=== PATIENT | female | born 1975 | race Caucasian/White ===

== ENCOUNTER 2017-08-01 05:16 | Emergency (ER) | payer SELFPAY ==
[2017-08-01 05:25] VITALS: RESP 20; TEMP 98.3
--- NOTE | 2017-08-01 06:20 | XR ---
EXAMINATION TYPE: XR lumbar spine 2 or 3V DATE OF EXAM: 08/01/2017 COMPARISON: NONE HISTORY: Fell down the stairs. Back pain. TECHNIQUE: 3 views FINDINGS: Vertebra have normal spacing and alignment. Posterior elements are intact. Sacroiliac joint s appear normal. There is no compression fracture. IMPRESSION: Normal lumbar spine.
[2017-08-01] MEDS ORDERED: KETOROLAC 60 MG/2 ML VIAL IM STA (07:37)
[2017-08-01] MEDS ORDERED: HYDROcodone/APAP 5-325MG 1 EACH TAB PO STA (07:37)
--- NOTE | 2017-08-01 07:41 | ED ---
General Adult HPI - General Chief complaint: Back Pain/Injury Stated complaint: fell down stairs/back pain Time Seen by Provider: 08/01/17 07:22 Source: patient, RN notes reviewed, old records reviewed Mode of arrival: ambulatory Limitations: no limitations - History of Present Illness Initial comments: This is a 41 female to the ED sp trip and fall. No medical history but does have hisotory of back and coccyx injury / fracture. Patient having difficulty w ROM and standing secondary to pain, difficulty driving to work after fall. - Related Data Home Medications Medication Instructions Recorded Confirmed Ibuprofen [Motrin Ib] 400 mg PO Q6H PRN 08/01/17 08/01/17 Allergies Allergy/AdvReac Type Severity Reaction Status Date / Time No Known Allergies Allergy Verified 08/01/17 07:33 Review of Systems ROS Statement: Those systems with pertinent positive or pertinent negative responses have been documented in the HPI. ROS Other: All systems not noted in ROS Statement are negative. Past Medical History Past Medical History: Hypertension History of Any Multi-Drug Resistant Organisms: None Reported Past Surgical History: No Surgical Hx Reported Past Psychological History: No Psychological Hx Reported Smoking Status: Never smoker Past Alcohol Use History: None Reported Past Drug Use History: None Reported General Exam Limitations: no limitations General appearance: alert, in no apparent distress Head exam: Present: atraumatic, normocephalic, normal inspection Eye exam: Present: normal appearance, PERRL, EOMI. Absent: scleral icterus, conjunctival injection, periorbital swelling ENT exam: Present: normal exam, mucous membranes moist Neck exam: Present: normal inspection. Absent: tenderness, meningismus, lymphadenopathy Respiratory exam: Present: normal lung sounds bilaterally. Absent: respiratory distress, wheezes, rales, rhonchi, stridor Cardiovascular Exam: Present: normal rhythm, tachycardia, normal heart sounds. Absent: systolic murmur, diastolic murmur, rubs, gallop, clicks GI/Abdominal exam: Present: soft, normal bowel sounds. Absent: distended, tenderness, guarding, rebound, rigid Extremities exam: Present: normal inspection, full ROM, normal capillary refill. Absent: tenderness, pedal edema, joint swelling, calf tenderness Back exam: Present: normal inspection, tenderness (PAraspinal, coccyx) Neurological exam: Present: alert, oriented X3, CN II-XII intact Psychiatric exam: Present: normal affect, normal mood Skin exam: Present: warm, dry, intact, normal color. Absent: rash Course Vital Signs 08/01/17 05:20 Temperature 98.3 F Pulse Rate 112 H Respiratory 20 Rate Blood Pressure 184/142 O2 Sat by Pulse 100 Oximetry - Reevaluation(s) Reevaluation #1: 08/01/17 07:39 pain improved Medical Decision Making - Medical Decision Making 41 female to the ED sp trip and fall landing on back , buttox , will dc home to w pcp, motrin tylenol for pain - Radiology Data Radiology results: report reviewed (XR LS spine negative for acute disease), image reviewed Disposition Clinical Impression: Fall, Acute lumbar back pain, Back contusion Disposition: HOME SELF-CARE Condition: Good Instructions: Acute Low Back Pain (ED), Coccyx Injury (ED) Is patient prescribed a controlled substance at d/c from ED?: No Referrals: None,Stated [Primary Care Provider] - 1-2 days
[2017-08-01 08:05] VITALS: BP 223/110; PULSE 75
== END 2017-08-01 08:05 | disposition home or self-care (01) ==
LOC: EC 05:16
DX: S30.0XXA Contusion of lower back and pelvis, initial encounter (principal); R00.0 Tachycardia, unspecified; W01.0XXA Fall on same level from slipping, tripping and stumbling without subsequent striking against object, initial encounter; Y92.69 Other specified industrial and construction area as the place of occurrence of the external cause
CPT/HCPCS: 72100; 99284; 96372; J1885

== ENCOUNTER 2019-03-14 18:38 | Inpatient (IN) | payer BC, OTHER ==
[2019-03-14] MEDS ORDERED: LORazepam 2 MG/ML INJ IV STA (19:12)
[2019-03-14] MEDS ORDERED: SODIUM CHLORIDE 0.9% 1,000 ML IV STA (19:12)
--- NOTE | 2019-03-14 19:21 | ED ---
General Adult HPI - General Stated complaint: DASH, CHEST PAIN Time Seen by Provider: 03/14/19 18:58 Source: patient, RN notes reviewed, old records reviewed Mode of arrival: ambulatory Limitations: no limitations - History of Present Illness Initial comments: 23-year-old female presenting for evaluation of chest pain and dyspnea. Patient appears quite anxious on initial evaluation. She states her symptoms have been present for one month. She reports a left-sided chest pain which is been constant, nonradiating pain for one month. She also reports that her dyspnea and work of breathing has been ongoing for 1 month but has increased over the past several days. Patient has no known history of coronary artery disease. No history of DVT or PE. She has history of hypertension and is not on any medications for several months. No cough or fever. No abdominal pain. - Related Data Home Medications Medication Instructions Recorded Confirmed Ibuprofen/Diphenhydramine HCl 2 cap PO HS PRN 03/14/19 03/14/19 [Advil Pm Liqui-Gels] Allergies Allergy/AdvReac Type Severity Reaction Status Date / Time No Known Allergies Allergy Verified 03/14/19 22:06 Review of Systems ROS Statement: Those systems with pertinent positive or pertinent negative responses have been documented in the HPI. ROS Other: All systems not noted in ROS Statement are negative. Past Medical History Past Medical History: Hypertension History of Any Multi-Drug Resistant Organisms: None Reported Past Surgical History: No Surgical Hx Reported Past Psychological History: No Psychological Hx Reported Smoking Status: Never smoker Past Alcohol Use History: None Reported Past Drug Use History: None Reported General Exam Limitations: no limitations General appearance: alert, anxious Head exam: Present: atraumatic, normocephalic Eye exam: Present: normal appearance, PERRL, EOMI ENT exam: Present: normal exam Neck exam: Present: normal inspection. Absent: tenderness, meningismus Respiratory exam: Present: respiratory distress, other (Tachypnea, good air entry bilaterally). Absent: wheezes, rales, rhonchi Cardiovascular Exam: Present: normal rhythm, tachycardia GI/Abdominal exam: Present: soft. Absent: distended, tenderness, guarding Extremities exam: Present: normal capillary refill, pedal edema Back exam: Present: normal inspection Neurological exam: Present: alert, oriented X3, CN II-XII intact. Absent: motor sensory deficit Psychiatric exam: Present: anxious Skin exam: Present: warm, dry, intact. Absent: cyanosis, diaphoretic Course Vital Signs 03/14/19 03/14/19 03/14/19 19:08 20:38 20:57 Temperature 98.8 F Pulse Rate 124 H 124 H 129 H Respiratory 18 30 H 30 H Rate Blood Pressure 184/116 174/111 152/109 O2 Sat by Pulse 99 96 94 L Oximetry 03/14/19 03/14/19 21:11 21:46 Temperature Pulse Rate 118 H Respiratory 33 H Rate Blood Pressure O2 Sat by Pulse 80 L 100 Oximetry - Reevaluation(s) Reevaluation #1: 03/14/19 21:20 Denying any vaginal bleeding, no rectal bleeding, no melena, history of anemia, unsure baseline hemoglobin. Reevaluation #2: 03/14/19 21:29 Oncoming physician will follow-up on CT angiography results, Dr. Ng. This is discussed with Dr. Watson who will admit patient, echo pending, BiPAP ordered for work of breathing. EKG Findings - EKG Comments: EKG Findings:: EKG: Sinus tachycardia, baseline artifact secondary to respiratory status, no ST segment elevation, rate of 129, GA interval 124, QRS duration 90, QTC 603. Repeat EKG showing sinus tachycardia, rate of 125, GA interval 96, QRS duration 94, QT 422, no ST segment elevation. Medical Decision Making - Medical Decision Making 43-year-old female presenting with one month history of dyspnea and chest pain. No known history of DVT or PE, no history of CAD. She does report some bilateral lower extremity swelling. Patient is in moderate distress, tachycardic, hypertensive. She has good oxygenation. Workup is initiated. Patient has an anemia 9.9, with history of anemia but no baseline hemoglobin for comparison. She denies any vaginal or rectal bleeding. No melena. Patient has CMP showing a potassium 2.9 which is replaced with both IV and oral potassium. She has a positive troponin 0.081 in the setting of a positive d-dimer. There is concern for pulmonary embolism with tachycardia and respiratory distress. CT angiography is obtained this is negative for PE, shows cardiogenic pulmonary edema consistent with x-ray findings and bilateral pleural effusions. She's given Lasix and placed on BiPAP for respiratory support. She's been nitroglycerin with improvement in symptoms. I discussed case with Dr. Watson who will admit. Echo will be obtained. Cardiology is placed on consult. - Lab Data Result diagrams: 03/14/19 19:27 03/14/19 19:27 Lab Results 03/14/19 03/14/19 03/14/19 Range/Units 19:27 19:27 19:27 WBC 9.1 (3.8-10.6) k/uL RBC 4.58 (3.80-5.40) m/uL Hgb 9.9 L (11.4-16.0) gm/dL Hct 33.1 L (34.0-46.0) % MCV 72.2 L (80.0-100.0) fL MCH 21.6 L (25.0-35.0) pg MCHC 29.9 L (31.0-37.0) g/dL RDW 16.6 H (11.5-15.5) % Plt Count 361 (150-450) k/uL Neutrophils % 80 % Lymphocytes % 14 % Monocytes % 4 % Eosinophils % 1 % Basophils % 0 % Neutrophils # 7.3 (1.3-7.7) k/uL Lymphocytes # 1.3 (1.0-4.8) k/uL Monocytes # 0.4 (0-1.0) k/uL Eosinophils # 0.0 (0-0.7) k/uL Basophils # 0.0 (0-0.2) k/uL Hypochromasia Marked Poikilocytosis Slight Anisocytosis Slight Microcytosis Moderate PT 11.6 (9.0-12.0) sec INR 1.1 (<1.2) APTT 22.0 (22.0-30.0) sec D-Dimer 1.41 H (<0.60) mg/L FEU Sodium 145 (137-145) mmol/L Potassium 2.9 L (3.5-5.1) mmol/L Chloride 107 (98-107) mmol/L Carbon Dioxide 31 H (22-30) mmol/L Anion Gap 7 mmol/L BUN 13 (7-17) mg/dL Creatinine 0.66 (0.52-1.04) mg/dL Est GFR (CKD-EPI)AfAm >90 (>60 ml/min/1.73 sqM) Est GFR (CKD-EPI)NonAf >90 (>60 ml/min/1.73 sqM) Glucose 108 H (74-99) mg/dL Plasma Lactic Acid Walter (0.7-2.0) mmol/L Calcium 9.3 (8.4-10.2) mg/dL Magnesium 1.6 (1.6-2.3) mg/dL Total Bilirubin 1.0 (0.2-1.3) mg/dL AST 22 (14-36) U/L ALT 14 (4-34) U/L Alkaline Phosphatase 51 (38-126) U/L Troponin I (0.000-0.034) ng/mL NT-Pro-B Natriuret Pep pg/mL Total Protein 6.0 L (6.3-8.2) g/dL Albumin 3.5 (3.5-5.0) g/dL 03/14/19 03/14/19 03/14/19 Range/Units 19:27 19:27 20:20 WBC (3.8-10.6) k/uL RBC (3.80-5.40) m/uL Hgb (11.4-16.0) gm/dL Hct (34.0-46.0) % MCV (80.0-100.0) fL MCH (25.0-35.0) pg MCHC (31.0-37.0) g/dL RDW (11.5-15.5) % Plt Count (150-450) k/uL Neutrophils % % Lymphocytes % % Monocytes % % Eosinophils % % Basophils % % Neutrophils # (1.3-7.7) k/uL Lymphocytes # (1.0-4.8) k/uL Monocytes # (0-1.0) k/uL Eosinophils # (0-0.7) k/uL Basophils # (0-0.2) k/uL Hypochromasia Poikilocytosis Anisocytosis Microcytosis PT (9.0-12.0) sec INR (<1.2) APTT (22.0-30.0) sec D-Dimer (<0.60) mg/L FEU Sodium (137-145) mmol/L Potassium (3.5-5.1) mmol/L Chloride (98-107) mmol/L Carbon Dioxide (22-30) mmol/L Anion Gap mmol/L BUN (7-17) mg/dL Creatinine (0.52-1.04) mg/dL Est GFR (CKD-EPI)AfAm (>60 ml/min/1.73 sqM) Est GFR (CKD-EPI)NonAf (>60 ml/min/1.73 sqM) Glucose (74-99) mg/dL Plasma Lactic Acid Walter 1.3 (0.7-2.0) mmol/L Calcium (8.4-10.2) mg/dL Magnesium (1.6-2.3) mg/dL Total Bilirubin (0.2-1.3) mg/dL AST (14-36) U/L ALT (4-34) U/L Alkaline Phosphatase (38-126) U/L Troponin I 0.081 H* (0.000-0.034) ng/mL NT-Pro-B Natriuret Pep 3690 pg/mL Total Protein (6.3-8.2) g/dL Albumin (3.5-5.0) g/dL Critical Care Time Critical Care Time: Yes Total Critical Care Time: 35 Disposition Clinical Impression: Acute non-ST elevation myocardial infarction (NSTEMI), Congestive heart failure Disposition: ADMITTED IP TO THIS [facility] Condition: Stable Is patient prescribed a controlled substance at d/c from ED?: No Decision to Admit Reason: Admit from EC Decision Date: 03/14/19 Decision Time: 21:21
[2019-03-14 19:55] LABS: Anisocytosis Slight; Basophils % (A) 0 %; Eosinophils % (A) 1 %; HCT 33.1 % (34.0-46.0); HGB 9.9 gm/dL (11.4-16.0); Hypochromasia Marked; Lymphocytes # (A) 1.3 k/uL (1.0-4.8); Lymphocytes % (A) 14 %; MCH 21.6 pg (25.0-35.0); MCHC 29.9 g/dL (31.0-37.0); MCV 72.2 fL (80.0-100.0); Mean Platelet Volume 7.7; Microcytosis Moderate; Monocytes # (A) 0.4 k/uL (0-1.0); Monocytes % (A) 4 %; Neutrophils # (A) 7.3 k/uL (1.3-7.7); Neutrophils % (A) 80 %; Platelet Count 361 k/uL (150-450); Poikilocytosis Slight; RBC 4.58 m/uL (3.80-5.40); RDW 16.6 % (11.5-15.5); WBC 9.1 k/uL (3.8-10.6)
[2019-03-14 19:58] LABS: ALT 14 U/L (4-34); AST 22 U/L (14-36); African American GFR (CKD) >90 (>60 ml/min/1.73 sqM); Albumin 3.5 g/dL (3.5-5.0); Alkaline Phosphatase 51 U/L (38-126); Anion Gap 7 mmol/L; Blood Urea Nitrogen 13 mg/dL (7-17); Calcium 9.3 mg/dL (8.4-10.2); Carbon Dioxide 31 mmol/L (22-30); Chloride 107 mmol/L (98-107); Glucose 108 mg/dL (74-99); Magnesium 1.6 mg/dL (1.6-2.3); Non-African American GFR(CKD) >90 (>60 ml/min/1.73 sqM); Potassium 2.9 mmol/L (3.5-5.1); Sodium 145 mmol/L (137-145)
[2019-03-14] MEDS ORDERED: POTASSIUM CHLORIDE ER 20 MEQ TAB.ER PO STA (20:05)
[2019-03-14] MEDS: POTASSIUM CHLORIDE 10 MEQ in WATER FOR INJECTION 1 100ML.BAG IVPB SCH ×2 (20:16→23:31)
[2019-03-14 20:21] LABS: D-Dimer 1.41 mg/L FEU (<0.60); INR 1.1 (<1.2); Prothrombin Time 11.6 sec (9.0-12.0)
--- NOTE | 2019-03-14 20:29 | XR ---
EXAMINATION: XR chest 2V DATE AND TIME: 03/14/2019 7:46 PM CLINICAL INDICATION: PHH; difficulty breathing TECHNIQUE: Departmental protocol COMPARISON: None FINDINGS: Cardiac silhouette is moderately enlarged. Mildly silhouetted pulmonary vasculature bilaterally by a fine reticular pattern of increased density bilaterally throughout the lungs. Findings consistent with clinical diagnosis of mild interstitial p hase pulmonary edema. Blunted left costophrenic angle consistent with small left pleural effusion. There is associated part ial airlessness of the left lower lobe, consistent with passive atelectasis. No abnormal gas collections. The skeletal structures and soft tissues are negative for acute findings. IMPRESSION: 1. Left pleural effusion. 2. Suspect mild cardiogenic pulmonary edema.
[2019-03-14] MEDS ORDERED: FUROSEMIDE 10 MG/ML 4 ML VIAL IV STA (20:32)
[2019-03-14] MEDS ORDERED: ASPIRIN 325 MG TAB PO STA (20:32)
[2019-03-14] MEDS: NITROGLYCERIN SL TABS 0.4 MG TAB SUBLINGUAL PRN (20:54)
[2019-03-14] MEDS ORDERED: HEPARIN SODIUM,PORCINE 5,000 UNIT/ML 1 ML VIAL IV PRN (21:18)
[2019-03-14] MEDS ORDERED: HEPARIN SODIUM,PORCINE 5,000 UNIT/ML 1 ML VIAL IV ONE (21:18)
[2019-03-14] MEDS ORDERED: NALOXONE 0.4 MG/ML 1 ML VIAL IV PRN (21:22)
--- NOTE | 2019-03-14 21:41 | CT ---
EXAMINATION TYPE: CT angio chest with contrast and with 3-D reconstruction renderings DATE OF EXAM: 03/14/2019 9:00 PM COMPARISON: None HISTORY: DASH, chest pain CT DLP: 952 mGycm Automated exposure control for dose reduction was used. CONTRAST: CTA scan of the thorax is performed with IV Contrast, patient injected with 100 mL of Isovu e 370, pulmonary embolism protocol. Three-D reconstructions. FINDINGS: The airways are unremarkable. There are bilateral pleural effusions, mild/moderate on the left and mild on the right. There is a bilateral and symmetric dependent groundglass pattern of opacity throughout the lungs bila terally, consistent with interstitial and alveolar phase pulmonary edema. There is moderate cardiomegaly with panchamber enlargement, with scant pericardial effusion. There is satisfactory enhancement of the pulmonary artery and its branches, there is no CT evidence f or pulmonary embolism. No acute aortic finding. OTHER: No additional significant abnormality is seen. IMPRESSION: 1. NEGATIVE FOR PULMONARY EMBOLISM. 2. POSITIVE FOR CARDIOGENIC PULMONARY EDEMA WITH BILATERAL PLEURAL EFFUSIONS.
[2019-03-14] MEDS ORDERED: CARVEDILOL 6.25 MG TAB PO STA (22:18)
[2019-03-14] MEDS ORDERED: LISINOPRIL 20 MG TAB PO STA (22:19)
[2019-03-14] MEDS ORDERED: METOCLOPRAMIDE 5 MG/ML 2 ML VIAL IVP STA (22:28)
--- NOTE | 2019-03-14 23:01 | P.HPIM ---
History of Present Illness H&P Date: 03/14/19 Chief Complaint: Chest pain or shortness of breath The patient is a 43 morbidly obese female with a past medical history of essential hypertension with noted noncompliance with medical therapy for the last 4 years who presents to the ER with chief complaints of chest pain and shortness of breath. The patient reports progressive worsening difficulty breathing over the last 4 weeks, she reports that it's worse with exertion and laying recumbent. She also reports exertional related chest discomfort, she becomes anxious when she has to climb a flight of stairs, today the patient had left-sided 7 on a 10 chest tightness with associated shortness of breath and an episode of nausea and vomiting. The patient also complains of lower extremity swelling worsening over the last 4 weeks, she also reports a 3-4 pillow orthopnea. She denies any palpitations, denies syncope or presyncope, she denies cough subjective fevers chills or night sweats. The patient reports previously being on metoprolol and the Cipro over 4 years ago but reports she has not taken any medication since then. In the ER the patient had a comprehensive workup WBC was 9 hemoglobin was 9.9g, PT INR is 11.6 and 1.1, d-dimer 1.4, sodium was 145, potassium 2.9, magnesium was 1.6, troponin was 0.081m NT proBNP 3690. Chest x-ray showed left pleural effusion suspect mild cardiogenic pulmonary edema. CTA of the chest was negative for PE but positive for cardiogenic pulmonary edema with bilateral pleural effusions EKG showed sinus tachycardia without any acute ischemia. The patient was given aspirin Lasix and Nitrostat and started on heparin drip and recommended for admission Review of Systems Pertinent positives per HPI all other review of systems are otherwise negative Past Medical History Past Medical History: Hypertension History of Any Multi-Drug Resistant Organisms: None Reported Past Surgical History: No Surgical Hx Reported Past Psychological History: No Psychological Hx Reported Smoking Status: Never smoker Past Alcohol Use History: None Reported Past Drug Use History: None Reported Medications and Allergies Home Medications Medication Instructions Recorded Confirmed Type Ibuprofen/Diphenhydramine HCl 2 cap PO HS PRN 03/14/19 03/14/19 History [Advil Pm Liqui-Gels] Allergies Allergy/AdvReac Type Severity Reaction Status Date / Time No Known Allergies Allergy Verified 03/14/19 22:06 Physical Exam Vitals: Vital Signs Temp Pulse Resp BP Pulse Ox 03/14/19 21:46 118 H 33 H 100 03/14/19 21:11 80 L 03/14/19 20:57 129 H 30 H 152/109 94 L 03/14/19 20:38 124 H 30 H 174/111 96 03/14/19 19:08 98.8 F 124 H 18 184/116 99 Intake and Output 03/14/19 03/14/19 03/14/19 06:59 14:59 22:59 Other: Weight 113.398 kg Constitutional: No acute distress, conversant, pleasant Eyes: Anicteric sclerae, moist conjunctiva, no lid-lag, PERRLA ENMT: NC/AT,Oropharynx clear, no erythema, exudates Neck:Supple, FROM, no masses, or JVD, No carotid bruits; No thyromegaly Lungs: Diminished in the bases, unlabored on room air Cardiovascular: Heart regular in rate and rhythm, No murmurs, gallops, or rubs +1.5 peripheral pitting edema Abdominal: Soft Nontender, nom distended, no guarding, no rebound or rigidity, Normoactive bowel sounds No hepatomegaly, No splenomegaly, No palpable mass No abdominal wall hernia noted Skin: Normal temperature, tone, texture, turgor, No induration No subcutaneous nodules, No rash, lesions, No ulcers Extremities:No digital cyanosis No clubbing, Pedal pulses intact and symmetrical Radial pulses intact and symmetrical Normal gait and station, No calf tenderness Psychiatric: Alert and oriented to person, place and time, Appropriate affect Intact judgement Neuro: Muscles Strength 5/5 in all 4 extremities, Sensation to light touch grossly present throughout, Cranial nerves II-XII grossly intact. No focal sensory deficits Results CBC & Chem 7: 03/15/19 04:58 03/15/19 13:25 Labs: Abnormal Lab Results - Last 24 Hours (Table) 03/14/19 03/14/19 03/14/19 Range/Units 19:27 19:27 19:27 Hgb 9.9 L (11.4-16.0) gm/dL Hct 33.1 L (34.0-46.0) % MCV 72.2 L (80.0-100.0) fL MCH 21.6 L (25.0-35.0) pg MCHC 29.9 L (31.0-37.0) g/dL RDW 16.6 H (11.5-15.5) % D-Dimer 1.41 H (<0.60) mg/L FEU Potassium 2.9 L (3.5-5.1) mmol/L Carbon Dioxide 31 H (22-30) mmol/L Glucose 108 H (74-99) mg/dL Troponin I (0.000-0.034) ng/mL Total Protein 6.0 L (6.3-8.2) g/dL 03/14/19 Range/Units 19:27 Hgb (11.4-16.0) gm/dL Hct (34.0-46.0) % MCV (80.0-100.0) fL MCH (25.0-35.0) pg MCHC (31.0-37.0) g/dL RDW (11.5-15.5) % D-Dimer (<0.60) mg/L FEU Potassium (3.5-5.1) mmol/L Carbon Dioxide (22-30) mmol/L Glucose (74-99) mg/dL Troponin I 0.081 H* (0.000-0.034) ng/mL Total Protein (6.3-8.2) g/dL Assessment and Plan Assessment: Non-STEMI Likely new onset acute CHF exacerbation Hypertensive emergency Hypokalemia Morbid obesity Microcytic anemia Plan: The patient is admitted anticipated greater than 2 midnight stay with ACS non- STEMI after presenting with progressive dyspnea and chest pain and also found to be in acute CHF exacerbation with volume overload noticed on imaging with cardiogenic pulmonary edema and pleural effusions and on physical exam with noted peripheral edema. The patient is continued on chest pain protocol with daily aspirin, started on Coreg and lisinopril, continue nitroglycerin and IV heparin per protocol plan for echocardiogram in the morning and cardiology consultation patient will likely need a heart catheterization. The patient continues to be to tacypneic and tachycardic continue supplemental oxygen 4 L via nasal cannula and continue Lasix diuresis 40 mg IV every 8 we'll continue to replace potassium and magnesium continue heparin and PPI therapy for DVT and GI prophylaxis CODE STATUS: Full code Anticipated discharge: 2-[address]; home.
[2019-03-14] MEDS: HEPARIN SOD,PORK IN 0.45% NACL 25,000 UNIT in 0.45% NACL 1 250ML.BAG IV SCH (23:31)
[2019-03-15] MEDS: MAGNESIUM SULFATE-D5W PMX 1 GM in DEXTROSE/WATER 1 100ML.BAG IVPB SCH ×2 (02:07→03:27)
[2019-03-15] MEDS: FUROSEMIDE 10 MG/ML 4 ML VIAL IV SCH ×3 (02:08→15:06)
[2019-03-15 05:48] LABS: Anisocytosis Slight; Basophils % (A) 0 %; Eosinophils % (A) 0 %; HCT 34.3 % (34.0-46.0); HGB 10.1 gm/dL (11.4-16.0); Hypochromasia Marked; Lymphocytes % (A) 18 %; MCH 21.3 pg (25.0-35.0); MCHC 29.3 g/dL (31.0-37.0); MCV 72.6 fL (80.0-100.0); Mean Platelet Volume 7.7; Microcytosis Moderate; Monocytes # (A) 0.5 k/uL (0-1.0); Monocytes % (A) 4 %; Neutrophils # (A) 8.3 k/uL (1.3-7.7); Neutrophils % (A) 76 %; Platelet Count 373 k/uL (150-450); Poikilocytosis Slight; RBC 4.72 m/uL (3.80-5.40); RDW 16.6 % (11.5-15.5)
[2019-03-15 06:01] LABS: ALT 15 U/L (4-34); AST 24 U/L (14-36); African American GFR (CKD) >90 (>60 ml/min/1.73 sqM); Albumin 3.6 g/dL (3.5-5.0); Alkaline Phosphatase 58 U/L (38-126); Anion Gap 9 mmol/L; Blood Urea Nitrogen 11 mg/dL (7-17); Calcium 9.3 mg/dL (8.4-10.2); Carbon Dioxide 32 mmol/L (22-30); Chloride 100 mmol/L (98-107); Cholesterol 142 mg/dL (<200); Glucose 111 mg/dL (74-99); HDL Cholesterol 29 mg/dL (40-60); LDL Cholesterol,Calculated 93 mg/dL (0-99); Magnesium 1.8 mg/dL (1.6-2.3); Non-African American GFR(CKD) >90 (>60 ml/min/1.73 sqM); Potassium 2.8 mmol/L (3.5-5.1); Sodium 141 mmol/L (137-145); Total Bilirubin 1.5 mg/dL (0.2-1.3); Total Protein 6.4 g/dL (6.3-8.2); Triglycerides 99 mg/dL (<150)
[2019-03-15] MEDS ORDERED: Potassium Replacement Protocol 1 EACH MISC MISCELLANE PRN (06:33)
[2019-03-15] MEDS: CARVEDILOL 6.25 MG TAB PO SCH ×2 (06:46→16:40)
[2019-03-15] MEDS: POTASSIUM CHLORIDE ER 20 MEQ TAB.ER PO SCH ×4 (06:46→23:35)
[2019-03-15] MEDS ORDERED: FUROSEMIDE 10 MG/ML 4 ML VIAL IV SCH (09:00)
[2019-03-15] MEDS: LISINOPRIL 20 MG TAB PO SCH (09:15)
[2019-03-15] MEDS: ONDANSETRON 4 MG/2 ML VIAL IVP PRN (10:47)
[2019-03-15] MEDS ORDERED: MAG HYDROX/AL HYDROX/SIMETH 30 ML, HYOSCYAMINE ELIXIR 10 ML, LIDOCAINE VISCOUS 2% 10 ML PO ONE ×3 (11:00)
--- NOTE | 2019-03-15 11:27 | ECHOF ---
Referral Reason:CHF MEASUREMENTS -------- HEIGHT: 175.3 cm WEIGHT: 113.4 kg BP: 174/103 RVIDd: 4.2 cm (< 3.3) IVSd: 1.4 cm (0.6 - 1.1) LVIDd: 6.2 cm (3.9 - 5.3) LVPWd: 1.8 cm (0.6 - 1.1) IVSs: 1.6 cm LVIDs: 5.1 cm LVPWs: 1.9 cm LA Diam: 5.2 cm (2.7 - 3.8) LAESV Index (A-L): 55.42 ml/m Ao Diam: 3.5 cm (2.0 - 3.7) AV Cusp: 1.8 cm (1.5 - 2.6) LA Diam: 5.2 cm (2.7 - 3.8) MV EXCURSION: 19.371 mm (> 18.000) MV EF SLOPE: 74 mm/s (70 - 150) EPSS: 1.5 cm MV E Daren: 1.11 m/s MV DecT: 108 ms MV A Daren: 0.28 m/s MV E/A Ratio: 3.94 RAP: 5.00 mmHg RVSP: 38.79 mmHg FINDINGS -------- Sinus rhythm. This was a techncally difficult study with suboptimal views, , Lumason utilized for enhancement of im ages. The left ventricular size is normal. Left ventricular wall thickness is normal. There is severe g lobal hypokinesis of LV . Overall left ventricular systolic function is severely impaired with, an EF < 20%. Increased Lap Grade III Diastolic Dysfunction. The right ventricle is moderate to severely enlarged. The left atrium is markedly dilated. LA is severely dilated >40 ml/m2 The right atrial size is normal. 5.0mg OF Lumason UTLIZED: 2 OR MORE WALL SEGMENTS NOT VISUALIZED. There is mild aortic valve sclerosis. There is no evidence of aortic regurgitation. Mild mitral annular calcification present. Moderate mitral regurgitation is present. Mild tricuspid regurgitation present. There is mild pulmonary hypertension. The right ventricular systolic pressure, as measured by Doppler, is 38.79mmHg. There is no pulmonic regurgitation present. The aortic root size is normal. The inferior vena cava is severely dilated. The inferior vena cava is dilated with no significant i nspiratory collapse which is consistent estimated right atrial pressure of >20 mmHg. There is a small, generalized pericardial effusion present. CONCLUSIONS -------- 1. Sinus rhythm. 2. This was a techncally difficult study with suboptimal views, , Lumason utilized for enhancement of images. 3. The left ventricular size is normal. 4. Left ventricular wall thickness is normal. 5. There is severe global hypokinesis of LV . 6. Overall left ventricular systolic function is severely impaired with, an EF < 20%. 7. Increased Lap Grade III Diastolic Dysfunction. 8. The right ventricle is moderate to severely enlarged. 9. The left atrium is markedly dilated. 10. LA is severely dilated >40 ml/m2 11. The right atrial size is normal. 12. 5.0mg OF Lumason UTLIZED: 2 OR MORE WALL SEGMENTS NOT VISUALIZED. 13. There is mild aortic valve sclerosis. 14. Mild mitral annular calcification present. 15. Moderate mitral regurgitation is present. 16. Mild tricuspid regurgitation present. 17. There is mild pulmonary hypertension. 18. The right ventricular systolic pressure, as measured by Doppler, is 38.79mmHg. 19. There is no pulmonic regurgitation present. 20. The aortic root size is normal. 21. The inferior vena cava is severely dilated. 22. The inferior vena cava is dilated with no significant inspiratory collapse which is consistent es timated right atrial pressure of >20 mmHg. 23. There is a small, generalized pericardial effusion present. CATTLE TESTER: Jayla Smith RDCS
[2019-03-15 12:02] LABS: Appearance,Urine Clear (Clear); Bilirubin,Urine Negative (Negative); Blood,Urine Negative (Negative); Color,Urine Light Yellow; Glucose,Urine (UA) Negative (Negative); Ketones,Urine Negative (Negative); Leukocyte Esterase,Urine Negative (Negative); Nitrite,Urine Negative (Negative); Protein,Urine Negative (Negative); Specific Gravity,Urine 1.007 (1.001-1.035); Urobilinogen,Urine <2.0 mg/dL (<2.0)
[2019-03-15 12:12] LABS: Amphetamine Screen,Urine Not Detected (NotDetected); Barbiturate Screen,Urine Not Detected (NotDetected); Benzodiazepines Screen,Urine Not Detected (NotDetected); Cocaine Screen,Urine Not Detected (NotDetected); Methadone Screen, Urine Not Detected (NotDetected); Opiate Screen,Urine Not Detected (NotDetected); Oxycodone Screen, Urine Not Detected (NotDetected); Phencyclidine Screen,Urine Not Detected (NotDetected); Tricyclic Antidepressant,Urine Not Detected (NotDetected); Urn Cannabinoid Scrn Not Detected (NotDetected)
[2019-03-15] MEDS ORDERED: PROMETHAZINE INJ 6.25 MG in SODIUM CHLORIDE 0.9% 50 ML IVPB PRN (12:45)
[2019-03-15] MEDS ORDERED: LORazepam 2 MG/ML INJ IV STA (12:46)
[2019-03-15 14:08] LABS: ALT 14 U/L (4-34); AST 21 U/L (14-36); African American GFR (CKD) >90 (>60 ml/min/1.73 sqM); Albumin 3.3 g/dL (3.5-5.0); Alkaline Phosphatase 49 U/L (38-126); Anion Gap 9 mmol/L; Blood Urea Nitrogen 13 mg/dL (7-17); Calcium 8.9 mg/dL (8.4-10.2); Carbon Dioxide 32 mmol/L (22-30); Chloride 101 mmol/L (98-107); Glucose 114 mg/dL (74-99); Non-African American GFR(CKD) >90 (>60 ml/min/1.73 sqM); Sodium 142 mmol/L (137-145); Total Bilirubin 1.7 mg/dL (0.2-1.3); Total Protein 5.9 g/dL (6.3-8.2)
--- NOTE | 2019-03-15 15:01 | P.PN ---
Subjective Progress Note Date: 03/15/19 Principal diagnosis: Shortness of breath 43-year-old female with morbid obesity who presented to the emergency department with complaints of chest pain and shortness of breath. Is going on for 4 weeks and worsening. In the ER she underwent an extensive evaluation. On arrival her vital signs showed a heart rate of 124 and a blood pressure of 184/ 116. Initial laboratory analysis demonstrated HgB of 9.9, serum 2.9, troponin 0.081, BNP 3690, x-ray showed left pleural effusion. CTA of the chest was negative for pulmonary embolism but did show pulmonary edema with bilateral pleural effusions. He was started on Lasix, nitro paste, and heparin drip. She was admitted for further evaluation of congestive heart failure. The morning after admission her blood pressure is elevated and she was having intractable nausea and vomiting. Patient seen and examined at bedside. She complains of nausea and vomiting, she denies any headache or shortness of breath, she denies any overt chest pain but is having some acid reflux. She denies any recent drug use. She eyes any problems with her heart in the past. Her mother did at age 65 of heart problems but she is unsure what. Objective - Vital Signs Vital signs: Vital Signs Temp 98.3 F 03/15/19 11:34 Pulse 112 H 03/15/19 11:45 Resp 20 03/15/19 11:34 BP 141/84 03/15/19 11:34 Pulse Ox 91 L 03/15/19 11:34 Intake & Output 03/14/19 03/15/19 03/15/19 18:59 06:59 18:59 Intake Total 72.348 80 Output Total 600 Balance -527.652 80 Weight 113.398 kg Intake: IV 80 Heparin Sod,Pork in 0.45% 80 NaCl 25,000 unit In 0.45 % NaCl 1 250ml.bag @ 8.82 UNITS/KG/HR 10.002 mls/ hr IV .Q24H [facility] Rx#: [id number] Intake, IV Titration 72.348 Amount Heparin Sod,Pork in 0.45% 72.348 NaCl 25,000 unit In 0.45 % NaCl 1 250ml.bag @ 8.82 UNITS/KG/HR 10.002 mls/ hr IV .Q24H [facility] Rx#: [id number] Output: Urine 600 - Exam General: Ill-appearing, moderate distress, ears at stated age, obese Derm: warm, dry Head: atraumatic, normocephalic, symmetric Eyes: EOMI, no lid lag, anicteric sclera Mouth: no lip lesion, mucus membranes moist Cardiovascular: S1S2 tachycardic, no murmur, positive posterior tibial pulse bilateral, Lungs: Decreased breath sounds bilateral, no rhonchi, no rales , no accessory muscle use Abdominal: soft, nontender to palpation, no guarding, no appreciable organomegaly Ext: no gross muscle atrophy, no edema, no contractures Neuro: CN II-XI grossly intact, no focal neuro deficits Psych: Alert, oriented, appropriate affect - Labs CBC & Chem 7: 03/15/19 04:58 03/15/19 13:25 Labs: Abnormal Lab Results - Last 24 Hours (Table) 03/14/19 03/14/19 03/14/19 Range/Units 19:27 19:27 19:27 WBC (3.8-10.6) k/uL Hgb 9.9 L (11.4-16.0) gm/dL Hct 33.1 L (34.0-46.0) % MCV 72.2 L (80.0-100.0) fL MCH 21.6 L (25.0-35.0) pg MCHC 29.9 L (31.0-37.0) g/dL RDW 16.6 H (11.5-15.5) % Neutrophils # (1.3-7.7) k/uL D-Dimer 1.41 H (<0.60) mg/L FEU Potassium 2.9 L (3.5-5.1) mmol/L Carbon Dioxide 31 H (22-30) mmol/L Glucose 108 H (74-99) mg/dL Total Bilirubin (0.2-1.3) mg/dL Troponin I (0.000-0.034) ng/mL Total Protein 6.0 L (6.3-8.2) g/dL Albumin (3.5-5.0) g/dL HDL Cholesterol (40-60) mg/dL 03/14/19 03/15/19 03/15/19 Range/Units 19:27 02:18 04:58 WBC 11.0 H (3.8-10.6) k/uL Hgb 10.1 L (11.4-16.0) gm/dL Hct (34.0-46.0) % MCV 72.6 L (80.0-100.0) fL MCH 21.3 L (25.0-35.0) pg MCHC 29.3 L (31.0-37.0) g/dL RDW 16.6 H (11.5-15.5) % Neutrophils # 8.3 H (1.3-7.7) k/uL D-Dimer (<0.60) mg/L FEU Potassium (3.5-5.1) mmol/L Carbon Dioxide (22-30) mmol/L Glucose (74-99) mg/dL Total Bilirubin (0.2-1.3) mg/dL Troponin I 0.081 H* 0.100 H* (0.000-0.034) ng/mL Total Protein (6.3-8.2) g/dL Albumin (3.5-5.0) g/dL HDL Cholesterol (40-60) mg/dL 03/15/19 03/15/19 03/15/19 Range/Units 04:58 07:32 13:25 WBC (3.8-10.6) k/uL Hgb (11.4-16.0) gm/dL Hct (34.0-46.0) % MCV (80.0-100.0) fL MCH (25.0-35.0) pg MCHC (31.0-37.0) g/dL RDW (11.5-15.5) % Neutrophils # (1.3-7.7) k/uL D-Dimer (<0.60) mg/L FEU Potassium 2.8 L 3.0 L (3.5-5.1) mmol/L Carbon Dioxide 32 H 32 H (22-30) mmol/L Glucose 111 H 114 H (74-99) mg/dL Total Bilirubin 1.5 H 1.7 H (0.2-1.3) mg/dL Troponin I 0.075 H* (0.000-0.034) ng/mL Total Protein 5.9 L (6.3-8.2) g/dL Albumin 3.3 L (3.5-5.0) g/dL HDL Cholesterol 29 L (40-60) mg/dL Assessment and Plan Assessment: Acute exacerbation of systolic CHF with EF 20% - Lasix - Will need BB and ACEI - Await cardio evaluation - Likely will need ischemic evaluation - strict I and O daily weights Elevated troponin of undetermined significance with hypokinetic wall motion - Trend troponin - ASA, statin, BB - Heparin gtt - nitro gtt if chest pain recurrs HTN urgency - follow - Continue with lisinopril and coreg Intractable N/V - phenergan, ativan microcytic anemia - follow CBC - Check iron studies Hypokalemia and hypomagnesemia - replace and recheck Morbid obesity BMI 36.9 - structured outpatient weight loss DVT prophylaxis: heparin gtt Discussed with: patient, nursing Anticipated discharge: 3-[address]: home A total of 65 minutes was spent on the care of this complex patient more than 50% of the time was spent in counseling and care coordination.
[2019-03-15] MEDS: ATORVASTATIN 40 MG TAB PO SCH (16:40)
[2019-03-15] MEDS ORDERED: POTASSIUM CHLORIDE 20 MEQ in WATER FOR INJECTION 1 100ML.BAG IVPB STA (16:55)
[2019-03-15] MEDS: LORazepam 2 MG/ML INJ IV PRN (21:22)
[2019-03-15] MEDS: POTASSIUM CHLORIDE 10 MEQ in WATER FOR INJECTION 1 100ML.BAG IVPB SCH ×2 (21:23→23:04)
[2019-03-15] MEDS: HEPARIN SOD,PORK IN 0.45% NACL 25,000 UNIT in 0.45% NACL 1 250ML.BAG IV SCH (22:06)
[2019-03-16] MEDS: FUROSEMIDE 10 MG/ML 4 ML VIAL IV SCH ×3 (01:21→17:00)
[2019-03-16] MEDS: POTASSIUM CHLORIDE ER 20 MEQ TAB.ER PO SCH ×4 (01:22→20:09)
[2019-03-16 03:57] LABS: Basophils % (A) 0 %; Eosinophils # (A) 0.2 k/uL (0-0.7); Eosinophils % (A) 2 %; HCT 35.7 % (34.0-46.0); HGB 10.1 gm/dL (11.4-16.0); Hypochromasia Marked; Lymphocytes # (A) 2.5 k/uL (1.0-4.8); Lymphocytes % (A) 24 %; MCH 20.8 pg (25.0-35.0); MCHC 28.4 g/dL (31.0-37.0); MCV 73.2 fL (80.0-100.0); Microcytosis Slight; Monocytes # (A) 0.6 k/uL (0-1.0); Monocytes % (A) 5 %; Neutrophils # (A) 7.2 k/uL (1.3-7.7); Neutrophils % (A) 68 %; Platelet Count 400 k/uL (150-450); RBC 4.88 m/uL (3.80-5.40); RDW 15.9 % (11.5-15.5); WBC 10.7 k/uL (3.8-10.6)
[2019-03-16 04:14] LABS: ALT 14 U/L (4-34); AST 23 U/L (14-36); African American GFR (CKD) >90 (>60 ml/min/1.73 sqM); Albumin 3.5 g/dL (3.5-5.0); Alkaline Phosphatase 51 U/L (38-126); Anion Gap 7 mmol/L; Blood Urea Nitrogen 17 mg/dL (7-17); Calcium 8.9 mg/dL (8.4-10.2); Carbon Dioxide 33 mmol/L (22-30); Chloride 100 mmol/L (98-107); Glucose 129 mg/dL (74-99); Magnesium 1.6 mg/dL (1.6-2.3); Non-African American GFR(CKD) 84 (>60 ml/min/1.73 sqM); Phosphorus 4.6 mg/dL (2.5-4.5); Potassium 3.1 mmol/L (3.5-5.1); Sodium 140 mmol/L (137-145); Total Bilirubin 1.4 mg/dL (0.2-1.3); Total Protein 6.1 g/dL (6.3-8.2)
[2019-03-16] MEDS: CARVEDILOL 6.25 MG TAB PO SCH ×2 (06:49→17:03)
[2019-03-16] MEDS: HEPARIN SODIUM,PORCINE 5,000 UNIT/ML 1 ML VIAL SQ SCH ×2 (08:30→17:01)
[2019-03-16] MEDS: LISINOPRIL 20 MG TAB PO SCH (08:38)
[2019-03-16] MEDS: ASPIRIN 81 MG PO SCH (08:38)
[2019-03-16] MEDS: ATORVASTATIN 40 MG TAB PO SCH (08:38)
[2019-03-16] MEDS: SPIRONOLACTONE 25 MG TAB PO SCH (10:26)
[2019-03-16] MEDS: MAGNESIUM SULFATE-D5W PMX 1 GM in DEXTROSE/WATER 1 100ML.BAG IVPB SCH ×3 (10:54→17:01)
[2019-03-16] MEDS: LORazepam 2 MG/ML INJ IV PRN ×2 (12:48→20:09)
--- NOTE | 2019-03-16 15:12 | P.CRDCN ---
History of Present Illness History of present illness: This is Alexandra Alejandre PA-C dictating a consult on this patient The patient was interviewed and examined by me as well as by Dr. Singh Case discussed with Dr. Singh and he agrees with the plan of care HPI Patient is a 43-year-old female with a history of hypertension who presented with complaints of shortness of breath. For the last month she has had symptoms of shortness of breath on exertion, orthopnea, lower extremity edema, and intermittent chest discomfort which she describes as feeling like she is being hit in the chest. She may have also had some intermittent dizziness but no syncope. Denies palpitations. She has a somewhat poor historian and is unable to give any exact details about the onset of her symptoms. She is unsure if she had any viral illnesses in the last few months but states she may have had something. She is under some increased stress due to her mom passing away over the summer. She denies alcohol use but sometimes does take Percocet and Xanax. Patient states the symptoms went on for about a month before one of her family members noticed she was for a short of breath while talking on the phone and urged her to come in for further evaluation. Upon presentation to the emergency department her blood pressure was 184/116, pulse was in the 120s, and she was satting 99% on room air. Initial EKG showed sinus tachycardia with nonspecific T-wave abnormalities. Labs are significant for abnormal d-dimer, troponin 0.081, and hypokalemia, and anemia. Chest CTA was negative for pulmonary embolism but was suggestive of cardiogenic pulmonary edema with bilateral pleural effusions. Echocardiogram showed severe global hypokinesis, EF less than 20%, moderate MR. Patient was admitted for further evaluation and management. Has been started on IV Lasix. Patient seen and examined resting in bed. Complaining of nausea and vomiting. Her breathing has improved a little bit. No chest pain currently. She does have a family history of premature coronary artery disease Denies history of diabetes Nonsmoker ROS: No fevers, chills or rigors, no cough, phlegm or expectoration, Positive for nausea and vomiting, no diarrhea, no hematuria, dysuria, no musculoskeletal complaints, no strokes or seizures, no skin lesions. EXAMINATION: Patient is afebrile, pulse in the 90s, respirations 12, blood pressure in the 120s over 80s, oxygen saturation 98% on 2 L nasal cannula Patient seen and examined resting in bed, appears in no acute distress Lungs are diminished bilaterally with crackles at the bases Mild edema bilaterally Minimal JVD REVIEW OF LABS, ECG & MEDICAL DATA WBC 10.7, hemoglobin 10.1, platelets 400, potassium 3.1, BUN 17, creatinine 0.85 Troponin 0.075, 0.1, 0.081 IMPRESSION / ASSESSMENT: Symptoms of shortness of breath secondary to acute systolic congestive heart failure Severe cardiomyopathy, EF less than 20%, etiology unknown Elevated troponin secondary to above Hypertension PLAN: She has been started on aspirin and atorvastatin, Coreg 6.25 twice a day, lisinopril 20 mg, and spironolactone 25 mg as well as diuresis with IV Lasix 40 mg every 8 We'll maximize her cardiomyopathy medications Check TSH plan for coronary angiogram in the next few days once her breathing improves Monitor BMP strict I&O Daily weights Past Medical History Past Medical History: Hypertension History of Any Multi-Drug Resistant Organisms: None Reported Past Surgical History: No Surgical Hx Reported Past Psychological History: No Psychological Hx Reported Smoking Status: Never smoker Past Alcohol Use History: None Reported Past Drug Use History: None Reported Medications and Allergies Home Medications Medication Instructions Recorded Confirmed Type Ibuprofen/Diphenhydramine HCl 2 cap PO HS PRN 03/14/19 03/14/19 History [Advil Pm Liqui-Gels] Allergies Allergy/AdvReac Type Severity Reaction Status Date / Time No Known Allergies Allergy Verified 03/14/19 22:06 Physical Exam Vitals: Vital Signs Temp Pulse Pulse Resp BP BP Pulse Ox 03/16/19 12:00 97.7 F 102 H 111 H 12 118/77 97 03/16/19 08:55 97.8 F 98 12 124/84 98 03/16/19 08:00 98 111 H 12 03/16/19 04:00 111 H 20 143/94 98 03/16/19 03:49 98 20 03/16/19 00:00 98 20 03/15/19 20:00 100 20 132/78 97 03/15/19 15:14 97.6 F 108 H 20 138/84 96 Intake and Output 03/16/19 03/16/19 03/16/19 06:59 14:59 22:59 Intake Total 400 360 Output Total 600 Balance -200 360 Intake: Oral 400 360 Output: Urine 600 Other: # Voids 4 1 Weight 117.2 kg 117.2 kg Results 03/16/19 03:42 03/16/19 03:42 Cardiac Enzymes 03/16/19 Range/Units 03:42 AST 23 (14-36) U/L Coagulation 03/15/19 03/16/19 Range/Units 20:49 03:42 APTT 39.7 H 48.1 H (22.0-30.0) sec CBC 03/16/19 Range/Units 03:42 WBC 10.7 H (3.8-10.6) k/uL RBC 4.88 (3.80-5.40) m/uL Hgb 10.1 L (11.4-16.0) gm/dL Hct 35.7 (34.0-46.0) % Plt Count 400 (150-450) k/uL Comprehensive Metabolic Panel 03/16/19 Range/Units 03:42 Sodium 140 (137-145) mmol/L Potassium 3.1 L (3.5-5.1) mmol/L Chloride 100 (98-107) mmol/L Carbon Dioxide 33 H (22-30) mmol/L BUN 17 (7-17) mg/dL Creatinine 0.85 (0.52-1.04) mg/dL Glucose 129 H (74-99) mg/dL Calcium 8.9 (8.4-10.2) mg/dL AST 23 (14-36) U/L ALT 14 (4-34) U/L Alkaline Phosphatase 51 (38-126) U/L Total Protein 6.1 L (6.3-8.2) g/dL Albumin 3.5 (3.5-5.0) g/dL Current Medications Generic Name Dose Route Start Last Admin Trade Name Freq PRN Reason Stop Dose Admin Aspirin 81 mg 03/16/19 09:00 03/16/19 08:38 Aspirin PO 81 mg DAILY [facility] Administration Atorvastatin Calcium 40 mg 03/15/19 15:15 03/16/19 08:38 Lipitor PO 40 mg DAILY [facility]OLD Administration Carvedilol 6.25 mg 03/15/19 07:30 03/16/19 06:49 Coreg PO 6.25 mg BID-W/MEALS AR[facility]OLD Administration Furosemide 40 mg 03/15/19 00:00 03/16/19 08:37 Lasix IV 40 mg Q8HR [facility]OLD Administration Hydromorphone HCl 0.5 mg 03/14/19 21:22 Dilaudid IVP Q3HR PRN Moderate Pain Promethazine HCl 6.25 mg/ 50.25 mls @ 200 mls/hr 03/15/19 12:45 03/15/19 13:51 Sodium Chloride IVPB 200 mls/hr Q6HR PRN Administration Vomiting Lisinopril 20 mg 03/15/19 09:00 03/16/19 08:38 Zestril PO 20 mg DAILY [facility]OLD Administration Lorazepam 0.5 mg 03/15/19 16:58 03/16/19 12:48 Ativan IV 0.5 mg Q6HR PRN Administration Anxiety Miscellaneous Information 1 each 03/15/19 06:33 Potassium Per Protocol MISCELLANE DAILY PRN Per Protocol Protocol Naloxone HCl 0.2 mg 03/14/19 21:22 Narcan IV Q2M PRN Opioid Reversal Nitroglycerin 0.4 mg 03/14/19 20:39 03/14/19 20:54 Nitrostat SUBLINGUAL 0.4 mg Q5M PRN Administration Chest Pain Ondansetron HCl 4 mg 03/15/19 10:43 03/15/19 10:47 Zofran IVP 4 mg Q6H PRN Administration Nausea Spironolactone 25 mg 03/16/19 10:15 03/16/19 10:26 Aldactone PO 25 mg DAILY ARNOLD Administration Intake and Output 03/16/19 03/16/19 03/16/19 06:59 14:59 22:59 Intake Total 400 360 Output Total 600 Balance -200 360 Intake: Oral 400 360 Output: Urine 600 Other: # Voids 4 1 Weight 117.2 kg 117.2 kg Patient Weight 03/17/19 06:59 Weight 117.2 kg 03/16/19 03:42 03/16/19 03:42
--- NOTE | 2019-03-16 15:19 | P.PN ---
Subjective Progress Note Date: 03/16/19 Principal diagnosis: Shortness of breath Patient is a 43-year-old female with morbid obesity who presented to the emergency department with complaints of chest pain and shortness of breath. that has been going on for 4 weeks and worsening. In the ER she underwent an extensive evaluation. On arrival her vital signs showed a heart rate of 124 and a blood pressure of 184/116. Initial laboratory analysis demonstrated HgB of 9.9, serum 2.9, troponin 0.081, BNP 3690, x-ray showed left pleural effusion. CTA of the chest was negative for pulmonary embolism but did show pulmonary edema with bilateral pleural effusions. He was started on Lasix, nitro paste, and heparin drip. She was admitted for further evaluation of congestive heart failure. The morning after admission her blood pressure is elevated and she was having intractable nausea and vomiting. Echocardiogram was completed which showed an ejection fraction of less than 20% with a severely dilated right atrium and moderate mitral regurgitation. She was maintained on Lasix, beta garry, and lisinopril. Aldactone was added on the morning of 03/16. Cardiology recommendations pending. Patient seen and examined at bedside. Very confused and unsure of what she should do next. Still having some shortness of breath, no chest pain, no nausea or vomiting today, some lower extremity edema -Patient moved here from [place] in 2014. She states that she had high blood pressure diagnosed at that time but no heart disease. She was not hospitalized and was following at a clinic, unfortunately she cannot recall the name of the clinic or the physician. She reports that since returning from [place] in 2014 she has not been following with a primary care provider and has not been taking any of her medications. Before she was on metoprolol and lisinopril. Father present at bedside and all questions answered best of my ability. Objective - Vital Signs Vital signs: Vital Signs Temp 97.7 F 03/16/19 12:00 Pulse 111 H 03/16/19 12:00 Resp 12 03/16/19 12:00 BP 118/77 03/16/19 12:00 Pulse Ox 97 03/16/19 12:00 Intake & Output 03/15/19 03/16/19 03/16/19 18:59 06:59 18:59 Intake Total 191.03 617.742 360 Output Total 1200 Balance 191.03 -582.258 360 Weight 117.2 kg 117.2 kg Intake: IV 80 Heparin Sod,Pork in 0.45% 80 NaCl 25,000 unit In 0.45 % NaCl 1 250ml.bag @ 8.82 UNITS/KG/HR 10.002 mls/ hr IV .Q24H [facility] Rx#: [id number] Intake, IV Titration 111.03 67.742 Amount Heparin Sod,Pork in 0.45% 111.03 67.742 NaCl 25,000 unit In 0.45 % NaCl 1 250ml.bag @ 8.82 UNITS/KG/HR 10.002 mls/ hr IV .Q24H [facility] Rx#: [id number] Oral 550 360 Output: Urine 1200 Other: # Voids 4 1 - Exam General: Ill-appearing, moderate distress, appears older than stated age, obese Derm: warm, dry Head: atraumatic, normocephalic, symmetric Eyes: EOMI, no lid lag, anicteric sclera Mouth: no lip lesion, mucus membranes moist Cardiovascular: S1S2 tachycardic, no murmur, positive posterior tibial pulse bilateral, Lungs: Decreased breath sounds bilateral, no rhonchi, no rales , no accessory muscle use Abdominal: soft, nontender to palpation, no guarding, no appreciable organomegaly Ext: no gross muscle atrophy, 2+ edema, no contractures Neuro: CN II-XI grossly intact, no focal neuro deficits Psych: Alert, oriented, appropriate affect - Labs CBC & Chem 7: 03/16/19 03:42 03/16/19 03:42 Labs: Abnormal Lab Results - Last 24 Hours (Table) 03/15/19 03/16/19 03/16/19 Range/Units 20:49 03:42 03:42 WBC 10.7 H (3.8-10.6) k/uL Hgb 10.1 L (11.4-16.0) gm/dL MCV 73.2 L (80.0-100.0) fL MCH 20.8 L (25.0-35.0) pg MCHC 28.4 L (31.0-37.0) g/dL RDW 15.9 H (11.5-15.5) % APTT 39.7 H (22.0-30.0) sec Potassium 3.1 L (3.5-5.1) mmol/L Carbon Dioxide 33 H (22-30) mmol/L Glucose 129 H (74-99) mg/dL Phosphorus 4.6 H (2.5-4.5) mg/dL Total Bilirubin 1.4 H (0.2-1.3) mg/dL Total Protein 6.1 L (6.3-8.2) g/dL 03/16/19 Range/Units 03:42 WBC (3.8-10.6) k/uL Hgb (11.4-16.0) gm/dL MCV (80.0-100.0) fL MCH (25.0-35.0) pg MCHC (31.0-37.0) g/dL RDW (11.5-15.5) % APTT 48.1 H (22.0-30.0) sec Potassium (3.5-5.1) mmol/L Carbon Dioxide (22-30) mmol/L Glucose (74-99) mg/dL Phosphorus (2.5-4.5) mg/dL Total Bilirubin (0.2-1.3) mg/dL Total Protein (6.3-8.2) g/dL Assessment and Plan Assessment: Acute exacerbation of systolic CHF with EF 20%, newly discovered - Lasix IV TID and Aldactone - BB and ACEI - Await cardio recs - Likely will need ischemic evaluation, inpatient vs outpatient - strict I and O daily weights Elevated troponin of undetermined significance with hypokinetic wall motion - troponin flat and not consistent with ACS - ASA, statin, BB - Heparin gtt dsicontinued Hypokalemia and hypomagnesemia - replace and rechck per protocol HTN urgency, improved - follow - Continue with lisinopril and coreg microcytic anemia - follow CBC - Check iron studies Morbid obesity BMI 36.9 - structured outpatient weight loss Intractable N/V, resolved DVT prophylaxis: heparin Discussed with: patient, nursing Anticipated discharge: 3-[address]: home A total of 35 minutes was spent on the care of this complex patient more than 50% of the time was spent in counseling and care coordination.
[2019-03-16] MEDS ORDERED: Potassium Replacement Protocol 1 EACH MISC MISCELLANE PRN (18:59)
[2019-03-17] MEDS: POTASSIUM CHLORIDE ER 20 MEQ TAB.ER PO SCH ×3 (01:15→18:55)
[2019-03-17] MEDS: FUROSEMIDE 10 MG/ML 4 ML VIAL IV SCH ×4 (01:30→23:48)
[2019-03-17] MEDS: CARVEDILOL 6.25 MG TAB PO SCH ×2 (06:30→18:55)
[2019-03-17 06:38] LABS: Anisocytosis Slight; Basophils # (A) 0.1 k/uL (0-0.2); Basophils % (A) 1 %; Eosinophils # (A) 0.3 k/uL (0-0.7); Eosinophils % (A) 4 %; HCT 33.5 % (34.0-46.0); HGB 9.9 gm/dL (11.4-16.0); Hypochromasia Marked; Lymphocytes # (A) 1.9 k/uL (1.0-4.8); Lymphocytes % (A) 22 %; MCH 21.5 pg (25.0-35.0); MCHC 29.6 g/dL (31.0-37.0); MCV 72.5 fL (80.0-100.0); Mean Platelet Volume 6.9; Microcytosis Moderate; Monocytes # (A) 0.5 k/uL (0-1.0); Monocytes % (A) 5 %; Neutrophils # (A) 5.7 k/uL (1.3-7.7); Neutrophils % (A) 66 %; Platelet Count 306 k/uL (150-450); RBC 4.62 m/uL (3.80-5.40); RDW 16.3 % (11.5-15.5); WBC 8.6 k/uL (3.8-10.6)
[2019-03-17 07:01] LABS: African American GFR (CKD) >90 (>60 ml/min/1.73 sqM); Anion Gap 4 mmol/L; Blood Urea Nitrogen 13 mg/dL (7-17); Calcium 8.8 mg/dL (8.4-10.2); Carbon Dioxide 39 mmol/L (22-30); Chloride 97 mmol/L (98-107); Cholesterol 118 mg/dL (<200); Glucose 95 mg/dL (74-99); HDL Cholesterol 22 mg/dL (40-60); LDL Cholesterol,Calculated 74 mg/dL (0-99); Non-African American GFR(CKD) >90 (>60 ml/min/1.73 sqM); Potassium 3.1 mmol/L (3.5-5.1); Sodium 140 mmol/L (137-145); Triglycerides 109 mg/dL (<150)
[2019-03-17] MEDS: HEPARIN SODIUM,PORCINE 5,000 UNIT/ML 1 ML VIAL SQ SCH ×3 (08:46→23:47)
[2019-03-17] MEDS: LISINOPRIL 20 MG TAB PO SCH (08:46)
[2019-03-17] MEDS: ASPIRIN 81 MG PO SCH (08:46)
[2019-03-17] MEDS: ATORVASTATIN 40 MG TAB PO SCH (08:46)
[2019-03-17] MEDS: SPIRONOLACTONE 25 MG TAB PO SCH (08:48)
[2019-03-17] MEDS: LORazepam 2 MG/ML INJ IV PRN ×2 (09:04→19:01)
[2019-03-17] MEDS ORDERED: SPIRONOLACTONE 25 MG TAB PO STA (14:27)
--- NOTE | 2019-03-17 14:29 | P.PN ---
Subjective Progress Note Date: 03/17/19 (delayed charting seen at 1030) Principal diagnosis: Shortness of breath Patient is a 43-year-old female with morbid obesity who presented to the emergency department with complaints of chest pain and shortness of breath. that has been going on for 4 weeks and worsening. In the ER she underwent an extensive evaluation. On arrival her vital signs showed a heart rate of 124 and a blood pressure of 184/116. Initial laboratory analysis demonstrated HgB of 9.9, serum 2.9, troponin 0.081, BNP 3690, x-ray showed left pleural effusion. CTA of the chest was negative for pulmonary embolism but did show pulmonary edema with bilateral pleural effusions. He was started on Lasix, nitro paste, and heparin drip. She was admitted for further evaluation of congestive heart failure. The morning after admission her blood pressure is elevated and she was having intractable nausea and vomiting. Echocardiogram was completed which showed an ejection fraction of less than 20% with a severely dilated right atrium and moderate mitral regurgitation. She was maintained on Lasix, beta garry, and lisinopril. Aldactone was added on the morning of 03/16. Cardiology recommendations appreciated and plan is for cath once breathing is optimized. Patient seen and examined at bedside. Feeling better today, breathing is better, edema is less but having some leg cramping, No chest pain, no nausea. Objective - Vital Signs Vital signs: Vital Signs Temp 98.3 F 03/17/19 12:49 Pulse 96 03/17/19 12:49 Resp 16 03/17/19 12:49 BP 125/75 03/17/19 12:49 Pulse Ox 93 L 03/17/19 12:49 Intake & Output 03/16/19 03/17/19 03/17/19 18:59 06:59 18:59 Intake Total 600 600 480 Output Total 1300 1500 Balance 600 -700 -1020 Weight 117.2 kg 118.5 kg Intake: Oral 600 600 480 Output: Urine 1300 1500 Other: # Voids 1 1 - Exam General:non tosic, no distress, appears older than stated age, obese Derm: warm, dry Head: atraumatic, normocephalic, symmetric Eyes: EOMI, no lid lag, anicteric sclera Mouth: no lip lesion, mucus membranes moist Cardiovascular: S1S2 regular, no murmur, positive posterior tibial pulse bilateral, Lungs: Decreased breath sounds bilateral, no rhonchi, no rales , no accessory muscle use Abdominal: soft, nontender to palpation, no guarding, no appreciable organo megaly Ext: no gross muscle atrophy, 2+ edema, no contractures Neuro: CN II-XI grossly intact, no focal neuro deficits Psych: Alert, oriented, appropriate affect - Labs CBC & Chem 7: 03/17/19 05:56 03/17/19 05:56 Labs: Abnormal Lab Results - Last 24 Hours (Table) 03/16/19 03/17/19 03/17/19 Range/Units 16:47 05:56 05:56 Hgb 9.9 L (11.4-16.0) gm/dL Hct 33.5 L (34.0-46.0) % MCV 72.5 L (80.0-100.0) fL MCH 21.5 L (25.0-35.0) pg MCHC 29.6 L (31.0-37.0) g/dL RDW 16.3 H (11.5-15.5) % Potassium 3.2 L 3.1 L (3.5-5.1) mmol/L Chloride 97 L (98-107) mmol/L Carbon Dioxide 39 H (22-30) mmol/L HDL Cholesterol 22 L (40-60) mg/dL Assessment and Plan Assessment: Acute exacerbation of systolic CHF with EF 20%, newly discovered - Lasix IV TID and Aldactone increased - BB and ACEI - Cardio recs apreciated: cath once breathing improved - strict I and O daily weights Elevated troponin of undetermined significance with hypokinetic wall motion - troponin flat and not consistent with ACS - ASA, statin, BB - Heparin gtt discontinued - plan is for cath once respiratory status optimized Hypokalemia - replace and recheck per protocol,, recheck mg in AM HTN urgency, improved - follow - Continue with lisinopril and coreg microcytic anemia - follow CBC - Check iron studies Morbid obesity BMI 36.9 - structured outpatient weight loss Intractable N/V, resolved DVT prophylaxis: heparin Discussed with: patient, nursing Anticipated discharge: 2-[address]: home A total of 35 minutes was spent on the care of this complex patient more than 50% of the time was spent in counseling and care coordination.
--- NOTE | 2019-03-17 15:33 | P.PN ---
Subjective This is Alexandra Alejandre PA-C dictating a progress note on this patient The patient was interviewed and examined by me as well as by Dr. Singh Case discussed with Dr. Singh and he agrees with the plan of care HPI/interval history Patient is a 43-year-old female with a history of hypertension who presented with complaints of shortness of breath. She was found to have severe global hypokinesis and an EF less than 20%. She was started on cardiomyopathy medications and IV diuretics yesterday. She has been diuresing well however her weight does not reflect this she is up 1 pound. Patient seen and examined hitting up in bed. States her breathing has improved. Denies any chest pain today. EXAMINATION Patient is afebrile, pulse in the 90s, respirations 16, blood pressure 125/75, oxygen saturation 93% on room air Patient seen and examined sitting up in bed, in no acute distress Lungs are diminished bilaterally with few scattered crackles at the base Heart is regular, soft systolic murmur audible Mild lower extremity edema bilaterally REVIEW OF LABS, ECG WBC 8.6, hemoglobin 9.9, platelets 306, potassium 3.1, BUN 13, creatinine 0.73 TSH within normal limits LDL 74 IMPRESSION / ASSESSMENT: Symptoms of shortness of breath secondary to acute systolic congestive heart failure Severe cardiomyopathy, EF less than 20%, etiology unknown Elevated troponin secondary to above Hypertension PLAN: Spironolactone was increased to 50 mg daily Maximize cardiomyopathy medications as blood pressure tolerates, continue beta blockers, Puneet inhibitors, aspirin and statins Continue IV diuresis Await records from [place], patient states she had a detailed workup done there, we will review these records before proceeding with further workup for cardiomyopathy including consideration for heart cath if it was not already done there Objective - Vital Signs Vital signs: Vital Signs Temp 98.3 F 03/17/19 12:49 Pulse 96 03/17/19 12:49 Resp 16 03/17/19 12:49 BP 125/75 03/17/19 12:49 Pulse Ox 93 L 03/17/19 12:49 Intake & Output 03/16/19 03/17/19 03/17/19 18:59 06:59 18:59 Intake Total 600 600 480 Output Total 1300 1500 Balance 600 -700 -1020 Weight 117.2 kg 118.5 kg Intake: Oral 600 600 480 Output: Urine 1300 1500 Other: # Voids 1 1 - Labs CBC & Chem 7: 03/17/19 05:56 03/17/19 05:56 Labs: Abnormal Lab Results - Last 24 Hours (Table) 03/16/19 03/17/19 03/17/19 Range/Units 16:47 05:56 05:56 Hgb 9.9 L (11.4-16.0) gm/dL Hct 33.5 L (34.0-46.0) % MCV 72.5 L (80.0-100.0) fL MCH 21.5 L (25.0-35.0) pg MCHC 29.6 L (31.0-37.0) g/dL RDW 16.3 H (11.5-15.5) % Potassium 3.2 L 3.1 L (3.5-5.1) mmol/L Chloride 97 L (98-107) mmol/L Carbon Dioxide 39 H (22-30) mmol/L HDL Cholesterol 22 L (40-60) mg/dL
[2019-03-17 23:55] LABS: Magnesium 1.6 mg/dL (1.6-2.3); Potassium 3.2 mmol/L (3.5-5.1)
[2019-03-18] MEDS ORDERED: Magnesium Replacement Protocol 1 EACH MISC MISCELLANE PRN (00:17)
[2019-03-18] MEDS: MAGNESIUM SULFATE-D5W PMX 1 GM in DEXTROSE/WATER 1 100ML.BAG IVPB SCH ×2 (00:22→02:30)
[2019-03-18] MEDS: POTASSIUM CHLORIDE ER 20 MEQ TAB.ER PO SCH ×3 (00:22→05:39)
[2019-03-18] MEDS: LORazepam 2 MG/ML INJ IV PRN (00:34)
[2019-03-18] MEDS: CARVEDILOL 6.25 MG TAB PO SCH ×2 (05:39→16:44)
[2019-03-18 06:30] LABS: Anisocytosis Slight; HCT 33.6 % (34.0-46.0); HGB 9.9 gm/dL (11.4-16.0); Hypochromasia Marked; MCH 21.3 pg (25.0-35.0); MCHC 29.5 g/dL (31.0-37.0); MCV 72.2 fL (80.0-100.0); Mean Platelet Volume 7.5; Microcytosis Moderate; Platelet Count 301 k/uL (150-450); RBC 4.65 m/uL (3.80-5.40); RDW 16.3 % (11.5-15.5); WBC 9.8 k/uL (3.8-10.6)
[2019-03-18 06:45] LABS: African American GFR (CKD) >90 (>60 ml/min/1.73 sqM); Anion Gap 6 mmol/L; Blood Urea Nitrogen 10 mg/dL (7-17); Calcium 8.7 mg/dL (8.4-10.2); Carbon Dioxide 38 mmol/L (22-30); Chloride 96 mmol/L (98-107); Glucose 78 mg/dL (74-99); Non-African American GFR(CKD) 87 (>60 ml/min/1.73 sqM); Sodium 140 mmol/L (137-145)
[2019-03-18 06:49] LABS: Magnesium 2.2 mg/dL (1.6-2.3)
[2019-03-18] MEDS: LISINOPRIL 20 MG TAB PO SCH (08:52)
[2019-03-18] MEDS: FUROSEMIDE 10 MG/ML 4 ML VIAL IV SCH ×3 (08:52→22:57)
[2019-03-18] MEDS: SPIRONOLACTONE 25 MG TAB PO SCH (08:52)
[2019-03-18] MEDS: ASPIRIN 81 MG PO SCH (08:52)
[2019-03-18] MEDS: HEPARIN SODIUM,PORCINE 5,000 UNIT/ML 1 ML VIAL SQ SCH ×3 (08:52→22:58)
[2019-03-18] MEDS: ATORVASTATIN 40 MG TAB PO SCH (08:52)
--- NOTE | 2019-03-18 09:30 | P.PN ---
Subjective Patient reports doing very well this morning. She is able to lay flat and denies any shortness of breath. She notices more energy and stamina. She does not have any other acute complaints this morning Objective - Vital Signs Vital signs: Vital Signs Temp 98.5 F 03/18/19 04:00 Pulse 57 L 03/18/19 04:00 Resp 18 03/18/19 04:00 BP 114/71 03/18/19 04:00 Pulse Ox 92 L 03/18/19 04:00 Intake & Output 03/17/19 03/18/19 03/18/19 18:59 06:59 18:59 Intake Total 600 120 Output Total 2500 2600 Balance -1900 -2480 Weight 112.2 kg Intake: Oral 600 120 Output: Urine 2500 2600 Other: # Voids 1 - Exam Vital Signs: I have reviewed the vital signs. GENERAL: Well-nourished, Well-developed , no apparent distress, cooperative Eyes: PERRL, extraoculry movements intact, clear conjunctiva Head: : Atraumatic external nose and ears, oropharyngeal mucosa is moist without lesions or exudates Neck: Symmetric, trachea midline, No thyromegaly, no masses or neck vain pulsation, no neck rigidity CVS: +S1/S2, No murmurs or gallops. Peripheral pulses 2+ and equal in all extremities. 1+ pitting edema peripherally RESP: Unlabored respiratory effort. Clear to auscultation bilaterally. Abdomen: Bowel sounds present in all 4 quadrants, Soft to palpation, Nontender/Nondistended, No hepatosplenomegaly, no hernias or masses, no CVA tnderness Musculoskeletal: Extremities w/o deformity, No cyanosis or clubbing, no joint swelling Skin: Warm, Dry. No rashes or lesions Psych: Awake, Alert, & Oriented (AAO) x3 Appropriate mood and affect - Labs CBC & Chem 7: 03/18/19 05:39 03/18/19 05:39 Labs: Abnormal Lab Results - Last 24 Hours (Table) 03/17/19 03/18/19 03/18/19 Range/Units 23:03 05:39 05:39 Hgb 9.9 L (11.4-16.0) gm/dL Hct 33.6 L (34.0-46.0) % MCV 72.2 L (80.0-100.0) fL MCH 21.3 L (25.0-35.0) pg MCHC 29.5 L (31.0-37.0) g/dL RDW 16.3 H (11.5-15.5) % Potassium 3.2 L (3.5-5.1) mmol/L Chloride 96 L (98-107) mmol/L Carbon Dioxide 38 H (22-30) mmol/L Assessment and Plan Assessment: Acute exacerbation of systolic CHF with EF 20%, newly discovered Continues diuresis, spironolactone, beta garry, AHMET inhibitor Fluid intake at home discussed Daily weights at home discussed Elevated troponin of undetermined significance with hypokinetic wall motion Plan for possible cardiac catheterization depending on results from documentation from [place] Hypokalemia Potassium normal and stable this morning HTN urgency, improved - follow - Continue with lisinopril and coreg microcytic anemia - follow CBC - Check iron studies Morbid obesity BMI 36.9 - structured outpatient weight loss Intractable N/V, resolved
--- NOTE | 2019-03-18 12:17 | P.PN ---
Subjective Progress Note Date: 03/18/19 Patient is a 43-year-old female with a history of hypertension who presented with complaints of shortness of breath. For the last month she has had symptoms of shortness of breath on exertion, orthopnea, lower extremity edema, and intermittent chest discomfort which she describes as feeling like she is being hit in the chest. She may have also had some intermittent dizziness but no syncope. Denies palpitations. She has a somewhat poor historian and is unable to give any exact details about the onset of her symptoms. She is unsure if she had any viral illnesses in the last few months but states she may have had something. She is under some increased stress due to her mom passing away over the summer. She denies alcohol use but sometimes does take Percocet and Xanax. Patient states the symptoms went on for about a month before one of her family members noticed she was for a short of breath while talking on the phone and urged her to come in for further evaluation. Upon presentation to the emergency department her blood pressure was 184/116, pulse was in the 120s, and she was satting 99% on room air. Initial EKG showed sinus tachycardia with nonspecific T-wave abnormalities. Echocardiogram showed severe global hypokinesis, EF less than 20%, moderate MR. patient continues to diurese well on IV Lasix. Her weight is overall down significantly from admission. White blood cell count 9.8, hemoglobin 9.9, platelet count 301. Sodium 140, potassium 4.0, BUN 10, creatinine 0.8, magnesium 2.2. Patient overall states that she's feeling better, she is almost able to completely lie flat in her bed and breath. We'll repeat a chest x-ray on her today. She has been advised to undergo cardiac catheterization to rule out underlying coronary artery disease as her source for cardiomyopathy. We will schedule that tomorrow. The risks and the benefits were explained to the patient in detail and she is willing to proceed. Objective - Vital Signs Vital signs: Vital Signs Temp 98.5 F 03/18/19 08:00 Pulse 96 03/18/19 08:00 Resp 18 03/18/19 04:00 BP 106/67 03/18/19 08:00 Pulse Ox 96 03/18/19 08:00 Intake & Output 03/17/19 03/18/19 03/18/19 18:59 06:59 18:59 Intake Total 600 120 Output Total 2500 2600 Balance -1900 -2480 Weight 112.2 kg Intake: Oral 600 120 Output: Urine 2500 2600 Other: # Voids 1 - Exam PHYSICAL EXAMINATION: GENERAL: 43-year-old female in no acute distress at the time of my examination HEENT: Head is atraumatic, normocephalic. Pupils equal, round. Sclera anicteric. Conjunctiva are clear. Mucous membranes of the mouth are moist. Neck is supple. There is no elevated jugular venous pressure. No carotid bruit is heard. HEART EXAMINATION: Heart S1 and S2 normal CHEST EXAMINATION: Lungs are clear with diminished air entry to the bases bilaterally ABDOMEN: Soft, nontender. Bowel sounds are heard. No organomegaly noted. EXTREMITIES: 2+ peripheral pulses with no evidence of peripheral edema and no calf tenderness noted. NEUROLOGIC patient is awake, alert and oriented 3 . . - Labs CBC & Chem 7: 03/18/19 05:39 03/18/19 05:39 Labs: Abnormal Lab Results - Last 24 Hours (Table) 03/17/19 03/18/19 03/18/19 Range/Units 23:03 05:39 05:39 Hgb 9.9 L (11.4-16.0) gm/dL Hct 33.6 L (34.0-46.0) % MCV 72.2 L (80.0-100.0) fL MCH 21.3 L (25.0-35.0) pg MCHC 29.5 L (31.0-37.0) g/dL RDW 16.3 H (11.5-15.5) % Potassium 3.2 L (3.5-5.1) mmol/L Chloride 96 L (98-107) mmol/L Carbon Dioxide 38 H (22-30) mmol/L Assessment and Plan Plan: IMPRESSION / ASSESSMENT: #1 Symptoms of shortness of breath secondary to acute systolic congestive heart failure #2 Severe cardiomyopathy, EF less than 20%, etiology unknown #3 Elevated troponin secondary to above #4 Hypertension Plan We will continue with current dose of IV Lasix, repeat chest x-ray today. Schedule patient for cardiac catheterization tomorrow. Further recommendations to follow. DNP note has been reviewed, I agree with a documented findings and plan of care. Patient was seen and examined.
[2019-03-18 12:57] LABS: % Iron Saturation 5.97 (12.00-45.00); Ferritin 12.7 ng/mL (10.0-291.0); Iron 20 ug/dL (50-170); Total Iron Binding Capacity 335 ug/dL (228-460)
[2019-03-18] MEDS: NITROGLYCERIN SL TABS 0.4 MG TAB SUBLINGUAL PRN ×3 (16:46→16:56)
[2019-03-18] MEDS: HYDROmorphone 0.5 MG/0.5 ML SYRINGE IVP PRN ×2 (17:02→21:17)
[2019-03-18] MEDS: ONDANSETRON 4 MG/2 ML VIAL IVP PRN (22:58)
[2019-03-19] MEDS: LISINOPRIL 20 MG TAB PO SCH (06:34)
[2019-03-19] MEDS: FUROSEMIDE 10 MG/ML 4 ML VIAL IV SCH ×2 (06:35→16:52)
[2019-03-19] MEDS: ATORVASTATIN 40 MG TAB PO SCH (06:35)
[2019-03-19] MEDS: CARVEDILOL 6.25 MG TAB PO SCH ×2 (06:35→18:52)
[2019-03-19] MEDS: ASPIRIN 81 MG PO SCH (06:35)
[2019-03-19] MEDS: SPIRONOLACTONE 25 MG TAB PO SCH (06:35)
[2019-03-19] MEDS: LORazepam 2 MG/ML INJ IV PRN (06:47)
[2019-03-19 07:06] LABS: Calcium 8.9 mg/dL (8.4-10.2); Magnesium 1.8 mg/dL (1.6-2.3); Potassium 3.1 mmol/L (3.5-5.1)
[2019-03-19] MEDS ORDERED: Potassium Replacement Protocol 1 EACH MISC MISCELLANE PRN (07:26)
--- NOTE | 2019-03-19 08:17 | XR ---
EXAMINATION TYPE: XR chest 2V DATE OF EXAM: 03/19/2019 COMPARISON: 03/14/2019 HISTORY: f/u heart failure TECHNIQUE: Frontal and lateral views of the chest are obtained. FINDINGS: Normalized pulmonary vasculature. Persistent left basilar pleural effusion small in size with probabl e left lower lobe atelectasis. The cardiac silhouette size is within normal limits. The osseous structures are grossly intact. IMPRESSION: 1. Normalized pulmonary vasculature. Persistent left basilar pleural effusion small in size with pro bable left lower lobe atelectasis.
[2019-03-19] MEDS: POTASSIUM CHLORIDE ER 20 MEQ TAB.ER PO SCH ×2 (08:35→08:57)
[2019-03-19] MEDS ORDERED: ALPRAZolam 0.5 MG TAB PO PRN (08:36)
[2019-03-19] MEDS ORDERED: ATORVASTATIN 80 MG TAB PO STA (08:36)
[2019-03-19] MEDS ORDERED: ASPIRIN 325 MG TAB PO STA (08:36)
[2019-03-19] MEDS ORDERED: NITROGLYCERIN SL TABS 0.4 MG TAB SUBLINGUAL PRN (08:36)
[2019-03-19] MEDS ORDERED: SODIUM CHLORIDE 0.9% 1,000 ML in EMPTY BAG 1 BAG IV ONE (08:36)
[2019-03-19] MEDS ORDERED: ALPRAZolam 0.25 MG TAB PO PRN (08:36)
[2019-03-19] MEDS: HEPARIN SODIUM,PORCINE 5,000 UNIT/ML 1 ML VIAL SQ SCH ×2 (08:40→16:32)
[2019-03-19] MEDS ORDERED: SODIUM FERRIC GLUCONAT-SUCROSE 125 MG in SODIUM CHLORIDE 0.9% 100 ML IVPB SCH (09:00)
--- NOTE | 2019-03-19 09:26 | P.PN ---
Subjective Patient is doing very well this morning. She denies any shortness of breath. She is able to lay flat. No new events overnight. She is plan for left heart catheterization today. Objective - Vital Signs Vital signs: Vital Signs Temp 98.7 F 03/19/19 08:00 Pulse 88 03/19/19 08:00 Resp 18 03/19/19 08:00 BP 107/75 03/19/19 08:00 Pulse Ox 96 03/19/19 08:00 Intake & Output 03/18/19 03/19/19 03/19/19 18:59 06:59 18:59 Intake Total 1140 Output Total 900 2300 Balance 240 -2300 Weight 108.5 kg Intake: Oral 1140 Output: Urine 900 2300 - Exam Vital Signs: I have reviewed the vital signs. GENERAL: Well-nourished, Well-developed , no apparent distress, cooperative Eyes: PERRL, extraoculry movements intact, clear conjunctiva Head: : Atraumatic external nose and ears, oropharyngeal mucosa is moist without lesions or exudates Neck: Symmetric, trachea midline, No thyromegaly, no masses or neck vain pulsation, no neck rigidity CVS: +S1/S2, No murmurs or gallops. Peripheral pulses 2+ and equal in all extremities. 1+ pitting edema peripherally RESP: Unlabored respiratory effort. Clear to auscultation bilaterally. Abdomen: Bowel sounds present in all 4 quadrants, Soft to palpation, Nontender/Nondistended, No hepatosplenomegaly, no hernias or masses, no CVA tnderness Musculoskeletal: Extremities w/o deformity, No cyanosis or clubbing, no joint swelling Skin: Warm, Dry. No rashes or lesions Psych: Awake, Alert, & Oriented (AAO) x3 Appropriate mood and affect - Labs CBC & Chem 7: 03/18/19 05:39 03/19/19 06:07 Labs: Abnormal Lab Results - Last 24 Hours (Table) 03/17/19 03/19/19 Range/Units 05:56 06:07 Potassium 3.1 L (3.5-5.1) mmol/L Chloride 94 L (98-107) mmol/L Carbon Dioxide 40 H (22-30) mmol/L Iron 20 L (50-170) ug/dL % Saturation 5.97 L (12.00-45.00) Assessment and Plan Assessment: Acute exacerbation of systolic CHF with EF 20%, newly discovered Continues diuresis, spironolactone, beta garry, AHMET inhibitor Fluid intake at home discussed Daily weights at home discussed Elevated troponin of undetermined significance with hypokinetic wall motion cardiac catheterization today Hypokalemia Potassium has been reports as per placement protocol HTN urgency, improved - follow - Continue with lisinopril and coreg microcytic anemia - Hemoglobin stable Iron studies indicative of iron deficiency We'll start IV iron while here in the hospital and discharged on oral iron Morbid obesity BMI 36.9 - structured outpatient weight loss Intractable N/V, resolved
[2019-03-19] MEDS ORDERED: IV FLUID CONTINUATION 1,000 ML IV ONE (10:00)
[2019-03-19] MEDS ORDERED: LIDOCAINE 1% INJ 10MG/ML (20 ML MDV) ONE (10:11)
[2019-03-19] MEDS ORDERED: fentaNYL (PF) 50 MCG/ML 2 ML AMP ONE (10:17)
[2019-03-19] MEDS ORDERED: MIDAZOLAM 2 MG/2 ML VIAL IV ONE (10:19)
[2019-03-19] MEDS ORDERED: fentaNYL (PF) 50 MCG/ML 2 ML AMP IV ONE ×2 (10:19)
[2019-03-19] MEDS ORDERED: LIDOCAINE 1% INJ 10MG/ML (20 ML MDV) SQ ONE (10:24)
[2019-03-19] MEDS ORDERED: FUROSEMIDE 10 MG/ML 4 ML VIAL ONE (10:44)
[2019-03-19] MEDS ORDERED: IOPAMIDOL-370 125ML BTL INJ ONE (10:47)
[2019-03-19] MEDS ORDERED: FUROSEMIDE 10 MG/ML 4 ML VIAL IV ONE (10:47)
[2019-03-19] MEDS ORDERED: RX INFO: IV CONTRAST WAS GIVEN 1 EACH MISC MISCELLANE PRN (10:58)
--- NOTE | 2019-03-19 11:06 | P.CARDCATH ---
Date of Procedure: 03/19/19 Preoperative Diagnosis: Cardiomyopathy Postoperative Diagnosis: Normal coronary arteries. Impaired LV function Description of Procedure: HISTORY: This is a 43-year-old female with history of hypertension and possible hypercholesterolemia was admitted to the hospital with new onset CHF and evidence of cardiomyopathy. A cardiac catheterization is requested to rule out underlying ischemic heart disease. CONSENT:I have discussed the risks, benefits and alternative therapies for the above-mentioned procedure and for both sedation/analgesia as well as necessary blood product administration, if indicated, as they pertain to this patient. The patient has indicated understanding and acceptance of the risks and procedures discussed. [] PROCEDURE: Patient was brought to the lab in a fasting state. Patient was given some IV sedation. The right groin is infiltrated with lidocaine and right femoral artery was entered using Seldinger technique. A 6-Syriac catheter was left in place and selective coronary arteriography and left ventriculography was performed. Patient tolerated the procedure well. Femoral angiogram was performed and Angio-Seal was applied for hemostasis. No immediate complications were noted and patient was transferred to [facility] in a stable condition. Patient developed mild dyspnea and patient was treated with nasal oxygen and also IV Lasix. Conscious Sedation: Versed 1mg Fentanyl 50 g Duration 25minutes HEMODYNAMICS: The aortic pressure is about 110/60. Left ventricular end- diastolic pressure was about 15. There was no gradient across the aortic valve SELECTIVE CORONARY ARTERIOGRAPHY: LEFT MAIN: Normal length and free of occlusive disease THE LEFT ANTERIOR DESCENDING CORONARY ARTERY:. This is a good caliber vessel giving rise good-sized diagonal branch. The LAD and branches are free of occlusive disease THE LEFT CIRCUMFLEX AND IS CORONARY ARTERY:. This is a good caliber vessel giving rise to 2 OM branches and PLV branch. The circumflex and is coronary artery and branches are free of occlusive disease THE RIGHT CORONARY ARTERY:. This is a good vessel which is dominant, giving rise to PDA and PLV. Free of any occlusive disease LEFT VENTRICULOGRAPHY:. This revealed a large left ventricle with severely impaired LV function with an ejection fraction of 20% FINAL IMPRESSION:. Normal coronary arteries. Dilated left ventricle with severely impaired LV function. Ejection fraction about 20-25% PLAN:. Continue medical therapy PROGNOSIS:. Guarded
[2019-03-19 11:07] LABS: ABG Base Excess 12.1 mmol/L; ABG HCO3 37 mmol/L (21-25); ABG Oxygen Saturation 90.4 % (94-97); ABG PCO2 47 mmHg (35-45); ABG PO2 63 mmHg (83-108); Allen Test Performed? Yes
[2019-03-19] MEDS ORDERED: FLUMAZENIL 0.1 MG/ML 5 ML VIAL IVP ONE ×2 (11:10→11:13)
[2019-03-19] MEDS ORDERED: NALOXONE 0.4 MG/ML 1 ML VIAL ONE (11:10)
[2019-03-19] MEDS ORDERED: NALOXONE 0.4 MG/ML 1 ML VIAL IV ONE (11:13)
--- NOTE | 2019-03-19 11:52 | CT ---
EXAMINATION TYPE: CODE STROKE: CT brain wo contr DATE OF EXAM: 03/19/2019 COMPARISON: None HISTORY: Code stroke CT DLP: [address] of the brain was performed. The ventricles, basal cisterns and sulci overlying the cerebral convexities demonstrate a normal appe arance. Scattered white matter changes noted. Correlate for possible underlying demyelination. There is no evidence for intracranial hemorrhage or sulcal effacement. No mass effects are seen. Osseous calvarium is intact. If symptoms persist consider MRI as clinically warranted. IMPRESSION: 1. No acute intracranial process is seen at this time.
[2019-03-19] MEDS ORDERED: Alteplase PER PHARMACY Stroke 1 EACH MISC MISCELLANE PRN (12:33)
[2019-03-19] MEDS ORDERED: ALTEPLASE 81 MG in EMPTY BAG 1 BAG IV STA (12:34)
[2019-03-19] MEDS ORDERED: ALTEPLASE BOLUS 9 MG in EMPTY SYRINGE 1 SYR IV STA ×2 (12:34→12:37)
--- NOTE | 2019-03-19 12:48 | CT ---
EXAMINATION TYPE: CODE STROKE: CTA head neck DATE OF EXAM: 03/19/2019 COMPARISON: None HISTORY: New onet of heart failure, non responsive CT DLP: 491.7 mGycm CONTRAST: Performed with IV Contrast, patient injected with 65 mL of Isovue 370. Combination Contrast CTA cervical carotids and [place] CTA cervical carotids with 3-D recons truction Contrast CTA of the cervical carotids was performed 3-D reconstruction imaging obtained at a separate workstation. Right carotid system: Mild plaque is seen of the right common carotid artery. There is mild plaque a lso noted at the carotid bulb and proximal ICA. No significant diameter reduction. ECA is patent. Right vertebral artery appears unremarkable. Left carotid system: Mild plaque is seen of the left common carotid artery. There is mild plaque als o noted at the carotid bulb and proximal ICA. No significant diameter reduction. ECA is patent. Lef t vertebral artery appears unremarkable. Bilateral pleural effusions noted left greater than right which are partially imaged. IMPRESSION: 1. No significant diameter reduction to account for the patient's symptoms. CTA [place] with 3-D reconstruction Contrast CTA of the [place] was performed 3-D reconstruction imaging obtained at a separate workstation. Vertebrobasilar system as well as intracranial portions of the internal carotid arteries and their ma stan tributaries are patent. I do not see evidence for sizable aneurysm or vascular malformation. Pl ease note MRI provides greater sensitivity and specificity. Visualized brain appears grossly unremar kable. IMPRESSION: 1. No significant abnormality.
[2019-03-19 12:56] LABS: INR 1.1 (<1.2); Partial Thromboplastin Time 24.1 sec (22.0-30.0); Prothrombin Time 10.9 sec (9.0-12.0)
[2019-03-19 13:27] LABS: Glucose,Whole Blood 110 mg/dL (75-99)
[2019-03-19] MEDS ORDERED: SODIUM CHLORIDE 0.9% 50 ML BAG IV ONE (13:33)
--- NOTE | 2019-03-19 14:34 | P.CNPUL ---
History of Present Illness Consult date: 03/19/19 Requesting physician: Doug Ernandez Reason for consult: other Chief complaint: Right leg weakness, and decreased sensation History of present illness: 43-year-old white female patient with past medical history of hypertension, untreated, presents to the hospital on 03/14/2019 with complaints of left-sided chest pain and dyspnea. Patient has been having constant left-sided chest pain and dyspnea for a month prior to presentation. Patient is quite hypertensive on presentation, with a blood pressure of 184/116, dyspneic, hypoxic, and tachycardic in sinus mechanism with nonspecific T-wave abnormality. Chest x-ray shows left pleural effusion, and mild cardiogenic pulmonary edema. D-dimer was elevated at 1.41, CTA chest was negative for any evidence of pulmonary embolism, but did show cardiogenic pulmonary edema with bilateral pleural effusions. Troponins are positive at 0.081, 0.100, and 0.075. Echocardiogram shows severely impaired left ventricular systolic function, with a EF of less than 20%, moderate to severely enlarged right ventricle, markedly dilated left atrium,, moderate mitral regurgitation, mild tricuspid regurgitation, mild pulmonary hypertension with right-sided pressures of 38.7 mmHg, and a small generalized pericardial effusion. Patient was placed on heparin and nitroglycerin, she was given Lasix, her breathing had improved, blood pressure is better controlled, today on a 03/11/2019 patient had a heart catheterization, was found to have normal coronary arteries. Following the procedure in the [facility] [employer] patient developed symptoms of right leg numbness, and difficulty moving right lower extremity. Code stroke was called, and her NIH score was 5. Brain CT and angiography CT of the brain showed no significant abnormality. Patient was evaluated by interventional neurologist, and TPA infusion was recommended. Currently receiving the patient in the intensive care unit, she is awake and alert, oriented 3, no visual changes, no facial weakness, no speech abnormality, patient normal motor and sensory function in the bilateral upper extremities, still has difficulty lifting right leg off the bed and still has decreased sensation in her right leg. Vital signs are stable, breathing stable, she is on 2 L of oxygen with a pulse ox of 95-99%, blood pressures 125/98, lung sounds are clear. Neurology consultation is pending. We were consulted for ICU management Review of Systems All systems: negative Constitutional: Denies chills, Denies fever Eyes: denies blurred vision, denies pain Ears, nose, mouth and throat: Denies headache, Denies sore throat Cardiovascular: Denies chest pain, Denies shortness of breath Respiratory: Reports dyspnea, Denies cough Gastrointestinal: Denies abdominal pain, Denies diarrhea, Denies nausea, Denies vomiting Genitourinary: Denies dysuria, Denies hematuria Musculoskeletal: Denies myalgias Integumentary: Denies pruritus, Denies rash Neurological: Reports motor disturbance, Reports paresthesias, Reports weakness, Denies numbness Psychiatric: Denies anxiety, Denies depression Endocrine: Denies fatigue, Denies weight change Past Medical History Past Medical History: Hypertension History of Any Multi-Drug Resistant Organisms: None Reported Past Surgical History: No Surgical Hx Reported Past Psychological History: No Psychological Hx Reported Smoking Status: Never smoker Past Alcohol Use History: None Reported Past Drug Use History: None Reported - Past Family History Father Family Medical History: Coronary Artery Disease (CAD) Medications and Allergies Home Medications Medication Instructions Recorded Confirmed Type Ibuprofen/Diphenhydramine HCl 2 cap PO HS PRN 03/14/19 03/14/19 History [Advil Pm Liqui-Gels] Allergies Allergy/AdvReac Type Severity Reaction Status Date / Time No Known Allergies Allergy Verified 03/14/19 22:06 Physical Exam Vitals: Vital Signs Temp Pulse Pulse Resp BP BP BP 03/19/19 13:15 90 19 125/98 03/19/19 13:00 90 23 116/86 03/19/19 12:45 89 21 125/80 03/19/19 12:30 92 8 L 123/88 03/19/19 12:15 98 5 L 113/92 03/19/19 12:00 97 26 H 03/19/19 11:57 97.7 F 101 H 17 122/86 03/19/19 08:00 98.7 F 88 18 107/75 03/19/19 04:00 98.6 F 94 18 125/78 03/19/19 00:00 98.2 F 96 18 137/89 03/18/19 20:00 98.6 F 96 18 125/74 03/18/19 17:23 105 H 16 03/18/19 17:12 98.8 F 105 H 16 131/90 Pulse Ox 03/19/19 13:15 95 03/19/19 13:00 99 03/19/19 12:45 100 03/19/19 12:30 95 03/19/19 12:15 96 03/19/19 12:00 99 03/19/19 11:57 98 03/19/19 08:00 96 03/19/19 04:00 96 03/19/19 00:00 96 03/18/19 20:00 90 L 03/18/19 17:23 03/18/19 17:12 97 Intake and Output 03/18/19 03/19/19 03/19/19 22:59 06:59 14:59 Intake Total 180 100 Output Total 2200 1000 Balance -2019 -999 100 Intake: IV 100 Oral 180 0 Output: Urine 2199 1000 Other: # Voids 1 # Bowel Movements 0 Weight 108.5 kg GENERAL EXAM: Alert, very pleasant, 43-year-old white female, resting in bed, in the ICU, currently on 2 L of oxygen with a pulse ox of 95%, comfortable in no apparent distress. HEAD: Normocephalic/atraumatic. EYES: Normal reaction of pupils, equal size. Conjunctiva pink, sclera white. NOSE: Clear with pink turbinates. THROAT: No erythema or exudates. NECK: No masses, no JVD, no thyroid enlargement, no adenopathy. CHEST: No chest wall deformity. Symmetrical expansion. LUNGS: Equal air entry with no crackles, wheeze, rhonchi or dullness. CVS: Regular rate and rhythm, normal S1 and S2, no gallops, no murmurs, no rubs ABDOMEN: Soft, nontender. No hepatosplenomegaly, normal bowel sounds, no guard ing or rigidity. EXTREMITIES: No clubbing, no edema, no cyanosis, 2+ pulses and upper and lower extremities. MUSCULOSKELETAL: Muscle strength and tone normal. SPINE: No scoliosis or deformity SKIN: No rashes CENTRAL NERVOUS SYSTEM: Alert and oriented -3. tone is normal in all 4 extremities. Patient is complaining of right leg weakness, she is unable to lift it off the bed, and decreased sensation in her right leg PSYCHIATRIC: Alert and oriented -3. Appropriate affect. Intact judgment and insight. Results - Laboratory Findings CBC and BMP: 03/18/19 05:39 03/19/19 06:07 ABG ABG pH 7.50 (7.35-7.45) H 03/19/19 10:53 ABG pCO2 47 mmHg (35-45) H 03/19/19 10:53 ABG pO2 63 mmHg (83-108) L 03/19/19 10:53 ABG O2 Saturation 90.4 % (94-97) L 03/19/19 10:53 PT/INR, D-dimer PT 10.9 sec (9.0-12.0) 03/19/19 12:35 INR 1.1 (<1.2) 03/19/19 12:35 D-Dimer 1.41 mg/L FEU (<0.60) H 03/14/19 19:27 Abnormal lab findings: Abnormal Labs 03/14/19 03/14/19 03/14/19 19:27 19:27 19:27 WBC Hgb 9.9 L Hct 33.1 L MCV 72.2 L MCH 21.6 L MCHC 29.9 L RDW 16.6 H Neutrophils # APTT D-Dimer 1.41 H ABG pH ABG pCO2 ABG pO2 ABG HCO3 ABG O2 Saturation Potassium 2.9 L Chloride Carbon Dioxide 31 H Glucose 108 H POC Glucose (mg/dL) Phosphorus Iron % Saturation Total Bilirubin Troponin I Total Protein 6.0 L Albumin HDL Cholesterol 03/14/19 03/15/19 03/15/19 19:27 02:18 04:58 WBC 11.0 H Hgb 10.1 L Hct MCV 72.6 L MCH 21.3 L MCHC 29.3 L RDW 16.6 H Neutrophils # 8.3 H APTT D-Dimer ABG pH ABG pCO2 ABG pO2 ABG HCO3 ABG O2 Saturation Potassium Chloride Carbon Dioxide Glucose POC Glucose (mg/dL) Phosphorus Iron % Saturation Total Bilirubin Troponin I 0.081 H* 0.100 H* Total Protein Albumin HDL Cholesterol 03/15/19 03/15/19 03/15/19 04:58 07:32 13:25 WBC Hgb Hct MCV MCH MCHC RDW Neutrophils # APTT D-Dimer ABG pH ABG pCO2 ABG pO2 ABG HCO3 ABG O2 Saturation Potassium 2.8 L 3.0 L Chloride Carbon Dioxide 32 H 32 H Glucose 111 H 114 H POC Glucose (mg/dL) Phosphorus Iron % Saturation Total Bilirubin 1.5 H 1.7 H Troponin I 0.075 H* Total Protein 5.9 L Albumin 3.3 L HDL Cholesterol 29 L 03/15/19 03/16/19 03/16/19 20:49 03:42 03:42 WBC 10.7 H Hgb 10.1 L Hct MCV 73.2 L MCH 20.8 L MCHC 28.4 L RDW 15.9 H Neutrophils # APTT 39.7 H D-Dimer ABG pH ABG pCO2 ABG pO2 ABG HCO3 ABG O2 Saturation Potassium 3.1 L Chloride Carbon Dioxide 33 H Glucose 129 H POC Glucose (mg/dL) Phosphorus 4.6 H Iron % Saturation Total Bilirubin 1.4 H Troponin I Total Protein 6.1 L Albumin HDL Cholesterol 03/16/19 03/16/19 03/17/19 03:42 16:47 05:56 WBC Hgb 9.9 L Hct 33.5 L MCV 72.5 L MCH 21.5 L MCHC 29.6 L RDW 16.3 H Neutrophils # APTT 48.1 H D-Dimer ABG pH ABG pCO2 ABG pO2 ABG HCO3 ABG O2 Saturation Potassium 3.2 L Chloride Carbon Dioxide Glucose POC Glucose (mg/dL) Phosphorus Iron % Saturation Total Bilirubin Troponin I Total Protein Albumin HDL Cholesterol 03/17/19 03/17/19 03/18/19 05:56 23:03 05:39 WBC Hgb 9.9 L Hct 33.6 L MCV 72.2 L MCH 21.3 L MCHC 29.5 L RDW 16.3 H Neutrophils # APTT D-Dimer ABG pH ABG pCO2 ABG pO2 ABG HCO3 ABG O2 Saturation Potassium 3.1 L 3.2 L Chloride 97 L Carbon Dioxide 39 H Glucose POC Glucose (mg/dL) Phosphorus Iron 20 L % Saturation 5.97 L Total Bilirubin Troponin I Total Protein Albumin HDL Cholesterol 22 L 03/18/19 03/19/19 03/19/19 05:39 06:07 10:53 WBC Hgb Hct MCV MCH MCHC RDW Neutrophils # APTT D-Dimer ABG pH 7.50 H ABG pCO2 47 H ABG pO2 63 L ABG HCO3 37 H ABG O2 Saturation 90.4 L Potassium 3.1 L Chloride 96 L 94 L Carbon Dioxide 38 H 40 H Glucose POC Glucose (mg/dL) Phosphorus Iron % Saturation Total Bilirubin Troponin I Total Protein Albumin HDL Cholesterol 03/19/19 13:08 WBC Hgb Hct MCV MCH MCHC RDW Neutrophils # APTT D-Dimer ABG pH ABG pCO2 ABG pO2 ABG HCO3 ABG O2 Saturation Potassium Chloride Carbon Dioxide Glucose POC Glucose (mg/dL) 110 H Phosphorus Iron % Saturation Total Bilirubin Troponin I Total Protein Albumin HDL Cholesterol - Diagnostic Findings Chest x-ray: report reviewed, image reviewed CT scan - chest: report reviewed, image reviewed Additional studies: Brain CT and angiography CT of the brain, EKG, chest x-ray, cardiogram, chest CTA reviewed Assessment and Plan Plan: Assessment: #1. Acute onset of right leg motor weakness, decreased sensation, rule out acute CVA, CT brain and angiography CT of the brain showed no acute intracranial process, initial NIH score is 5, patient is having TPA infusion for her symptoms #2. Left chest pain and dyspnea related to acute exacerbation of systolic congestive heart failure, newly discovered. Echocardiogram showed a severely impaired left ventricular systolic function with EF of less than 20% #3. Hypertensive urgency on presentation, with mild cardiogenic pulmonary edema #4. History of hypertension, not treated, patient was previously on lisinopril #5. Elevated troponins, heart catheterization today showed normal coronary arteries #6. Iron deficiency anemia #7. Hypokalemia and hypomagnesemia, improved #8. Family history of heart disease #9. Lifetime nonsmoker, no history of chronic lung disease, no history of EtOH or drug abuse #10. Morbid obesity Plan: Patient is receiving TPA infusion, her neurological symptoms being closely monitored in the intensive care unit, hemodynamically patient is stable, no hypertension, no complaints of chest pain, no difficulty breathing. Patient is still having right lower extremity weakness and decreased sensation. Neurology evaluation is pending. Brain CT and angiography CT of the head have been reviewed, showing no acute intracranial process, no significant carotid artery stenosis, echocardiogram was done early on admission showing severely impaired left ventricular systolic function. We'll continue with IV Lasix, since last chest x-ray from this morning showed small left basilar pleural effusion with probable left lower lobe atelectasis. Patient is on aspirin, Lipitor, Lisinopril and Coreg. Will await further input from neurology. We'll continue to follow I performed a history & physical examination of the patient and discussed their management with my nurse practitioner, Lindsey Sheets. I reviewed the nurse practitioner's note and agree with the documented findings and plan of care. Lung sounds are positive for clear breath sounds. The findings and the impression was discussed with the patient. I attest to the documentation by the nurse practitioner. Time with Patient: Greater than 30
[2019-03-19] MEDS: SODIUM CHLORIDE 0.9% 1,000 ML IV SCH ×2 (15:52→20:22)
[2019-03-19] MEDS: MORPHINE SULFATE 2 MG/ML SYRINGE IVP PRN ×2 (15:54→21:12)
[2019-03-19] MEDS ORDERED: Magnesium Replacement Protocol 1 EACH MISC MISCELLANE PRN (16:02)
--- NOTE | 2019-03-19 16:09 | P.CNNES ---
History of Present Illness Consult date: 03/19/19 Reason for Consult: Stroke code Chief complaint: RLE weakness and pain History of Present Illness: HISTORY OF PRESENT ILLNESS: Thank you for allowing me to evaluate Ms. Barbara Heredia. Ms. Heredia is a 43 year-old woman with PMhx of HTN, who presented to [facility] on 03/14/2019 for chest pain and dyspnea x1 month, found with EF of 25%, consulting Neurology for concern for stroke. 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 Patient was deemed a good candidate for tPA, so patient was given tPA and transferred to ICU. Patient denies any miscarriages. She has two sons. Denies any history of clotting, DVT or PE. Patient's mother in her sleep, most likely heart attack, last year. Patient is very tearful during this eval, stating that her R leg hurts and she's frustrated that she cannot move her R leg. Puncture for cath was performed on RLE. Denies any headache, nausea, vomiting, dizziness, numbness or tingling. States she had some headache last night, vomited, and felt better. vitals at that time was unremarkable. PAST MEDICAL HISTORY: HTN PAST SURGICAL HISTORY: [None HOME MEDICATIONS: ibuprofen ALLERGIES: NKDA SOCIAL HISTORY: Never smoker. Denies EtOH/drug abuse history FAMILY HISTORY: Heart attack REVIEW OF SYSTEMS: The 14 systems are reviewed and no additional points are identified compared to the review of systems documented history and physical PHYSICAL EXAMINATION: VITAL SIGNS: T 97.7 HR 101 RR 17 BP 122/86 O2 sat 98% on 4L via NC GEN.: NAD, tearful but cooperative HEENT: NCAT, sclera without icterus NECK: Supple, no carotid bruit SKIN AND EXTREMITIES: Warm to touch, no edema NEURO: MENTAL STATUS: Patient alert and oriented to self, place, time. Able to name the current president. Speech fluent, able to name and repeat, following all commands readily. No right and left disorientation, neglect. CRANIAL NERVES II THROUGH XII: II: Pupils are equal and reactive to light symmetrically. Visual nuñez are intact. III, IV, : No ptosis. Extraocular movements full. No nystagmus. V: Facial sensation intact from V1-3. VII. No clear facial asymmetry. VIII: Hearing intact to finger rub bilaterally. IX, X: Symmetric palate elevation. XI: Shoulder shrug intact. XII: Tongue midline without fasciculation or atrophy. MOTOR: Normal bulk/tone. No pronator drift or tremor. Strength is 5/5 in b/l UE and LLE. Patient with 5/5 strength in RLE plantar/dorsi flexion, but difficulty with bending knee and flexing hip, mainly due to pain. Patient also reporting pain in her R buttock. SENSORY: Intact to light touch in all 4 extremities. REFLEXES: 2+ throughout. Toes are downgoing. No clonus. Dennis's is absent COORDINATION: Finger to nose and heel to maurice intact. No dysmetria. Rapid alternating movements with good speed and accuracy. GAIT: Narrow-based and stable. Able to toe/heel/tandem walk DIAGNOSTIC TESTING: LABORATORY: WBC 9.8 Hgb 9.9 Platelet 301 Na 141 K 3.1 Cl 94 CO2 40 BUN 13 Cr 0.93 glucose 96 IMAGING: CT Head w/o contrast 03/19/2019: No acute intracranial process is seen at this time. CTA Head and Neck w/ and w/o contrast 03/19/2019: No significant diameter reduction of neck vessels to account for patient's symptoms. [place] unremarkable. TTE 03/15/2019: SR. Technically difficult stuyd. LV size normal. Severe global hypokinesis of LV. EF <20%. RV is mod-severely enlarged. LA is severely dilated. RA is normal size. ASSESSMENT: 43 year-old woman with PMhx of HTN, who presented to [facility] on 03/14/2019 for chest pain and dyspnea x1 month, found with EF of 25%, consulting Neurology for concern for stroke. Patient reporting pain his R buttock after cardiac cath during which the R femoral artery was accessed for procedure. Patient is s/p tPA. Will proceed with stroke work-up and management, at this time, risk factor possibly from her low EF, but higher on the differential is femoral nerve damage during cardiac cath RECOMMENDATIONS: 1. MRI brain without contrast 2. Cardiac monitoring 3. maintain BP <180/105 4. Atorvastatin 40mg qhs 5. Labs: A1C, TSH, FLP 6. PT/OT/ST per protocol 7. Neurology will continue to follow 8. Patient needs to follow up with neurologist as outpatient with her 1-2 weeks of discharge, EMG/NCS would be helpful in making a diagnosis if MRI shows no stroke 9. Discussed ED precautions: return to ED if having severe headache, nausea, vomiting, vision deficits, speech difficulty, facial asymmetry, weakness, numbness or tingling. Past Medical History Past Medical History: Hypertension History of Any Multi-Drug Resistant Organisms: None Reported Past Surgical History: No Surgical Hx Reported Past Psychological History: No Psychological Hx Reported Smoking Status: Never smoker Past Alcohol Use History: None Reported Past Drug Use History: None Reported - Past Family History Father Family Medical History: Coronary Artery Disease (CAD) Medications and Allergies Home Medications Medication Instructions Recorded Confirmed Type Ibuprofen/Diphenhydramine HCl 2 cap PO HS PRN 03/14/19 03/14/19 History [Advil Pm Liqui-Gels] Allergies Allergy/AdvReac Type Severity Reaction Status Date / Time No Known Allergies Allergy Verified 03/14/19 22:06 Physical Examination - Vital Signs Vital Signs: Vital Signs Temp Pulse Pulse Resp BP BP BP 03/19/19 15:15 95 14 133/93 03/19/19 15:00 96 11 L 117/85 03/19/19 14:45 92 11 L 126/91 03/19/19 14:30 93 13 126/88 03/19/19 14:15 93 17 118/87 03/19/19 14:00 91 13 121/79 03/19/19 13:45 91 12 120/86 03/19/19 13:30 95 14 113/76 03/19/19 13:15 90 19 125/98 03/19/19 13:00 90 23 116/86 03/19/19 12:45 89 21 125/80 03/19/19 12:30 92 8 L 123/88 03/19/19 12:15 98 5 L 113/92 03/19/19 12:00 97 26 H 03/19/19 11:57 97.7 F 101 H 17 122/86 03/19/19 08:00 98.7 F 88 18 107/75 03/19/19 04:00 98.6 F 94 18 125/78 03/19/19 00:00 98.2 F 96 18 137/89 03/18/19 20:00 98.6 F 96 18 125/74 03/18/19 17:23 105 H 16 03/18/19 17:12 98.8 F 105 H 16 131/90 Pulse Ox 03/19/19 15:15 99 03/19/19 15:00 03/19/19 14:45 100 03/19/19 14:30 100 03/19/19 14:15 95 03/19/19 14:00 99 03/19/19 13:45 98 03/19/19 13:30 96 03/19/19 13:15 95 03/19/19 13:00 99 03/19/19 12:45 100 03/19/19 12:30 95 03/19/19 12:15 96 03/19/19 12:00 99 03/19/19 11:57 98 03/19/19 08:00 96 03/19/19 04:00 96 03/19/19 00:00 96 03/18/19 20:00 90 L 03/18/19 17:23 03/18/19 17:12 97 Intake and Output 03/19/19 03/19/19 03/19/19 06:59 14:59 22:59 Intake Total 281 50 Output Total 1000 825 275 Balance -3830 -335 -539 Intake: IV 281 50 Alteplase 81 mg In Empty 81 Bag 1 bag @ 81 mls/hr IV ONCE STA Rx#:[id number] Sodium Chloride 0.9% 1, 100 50 000 ml @ 50 mls/hr IV . Q20H [facility] Rx#:[id number] Oral 0 Output: Urine 1000 825 275 Other: # Voids 1 # Bowel Movements 0 Weight 108.5 kg Results - Laboratory Findings CBC and BMP: 03/18/19 05:39 03/19/19 06:07 Abnormal Lab Findings: Abnormal Labs 03/14/19 03/14/19 03/14/19 19:27 19:27 19:27 WBC Hgb 9.9 L Hct 33.1 L MCV 72.2 L MCH 21.6 L MCHC 29.9 L RDW 16.6 H Neutrophils # APTT D-Dimer 1.41 H ABG pH ABG pCO2 ABG pO2 ABG HCO3 ABG O2 Saturation Potassium 2.9 L Chloride Carbon Dioxide 31 H Glucose 108 H POC Glucose (mg/dL) Phosphorus Iron % Saturation Total Bilirubin Troponin I Total Protein 6.0 L Albumin HDL Cholesterol 03/14/19 03/15/19 03/15/19 19:27 02:18 04:58 WBC 11.0 H Hgb 10.1 L Hct MCV 72.6 L MCH 21.3 L MCHC 29.3 L RDW 16.6 H Neutrophils # 8.3 H APTT D-Dimer ABG pH ABG pCO2 ABG pO2 ABG HCO3 ABG O2 Saturation Potassium Chloride Carbon Dioxide Glucose POC Glucose (mg/dL) Phosphorus Iron % Saturation Total Bilirubin Troponin I 0.081 H* 0.100 H* Total Protein Albumin HDL Cholesterol 03/15/19 03/15/19 03/15/19 04:58 07:32 13:25 WBC Hgb Hct MCV MCH MCHC RDW Neutrophils # APTT D-Dimer ABG pH ABG pCO2 ABG pO2 ABG HCO3 ABG O2 Saturation Potassium 2.8 L 3.0 L Chloride Carbon Dioxide 32 H 32 H Glucose 111 H 114 H POC Glucose (mg/dL) Phosphorus Iron % Saturation Total Bilirubin 1.5 H 1.7 H Troponin I 0.075 H* Total Protein 5.9 L Albumin 3.3 L HDL Cholesterol 29 L 03/15/19 03/16/19 03/16/19 20:49 03:42 03:42 WBC 10.7 H Hgb 10.1 L Hct MCV 73.2 L MCH 20.8 L MCHC 28.4 L RDW 15.9 H Neutrophils # APTT 39.7 H D-Dimer ABG pH ABG pCO2 ABG pO2 ABG HCO3 ABG O2 Saturation Potassium 3.1 L Chloride Carbon Dioxide 33 H Glucose 129 H POC Glucose (mg/dL) Phosphorus 4.6 H Iron % Saturation Total Bilirubin 1.4 H Troponin I Total Protein 6.1 L Albumin HDL Cholesterol 03/16/19 03/16/19 03/17/19 03:42 16:47 05:56 WBC Hgb 9.9 L Hct 33.5 L MCV 72.5 L MCH 21.5 L MCHC 29.6 L RDW 16.3 H Neutrophils # APTT 48.1 H D-Dimer ABG pH ABG pCO2 ABG pO2 ABG HCO3 ABG O2 Saturation Potassium 3.2 L Chloride Carbon Dioxide Glucose POC Glucose (mg/dL) Phosphorus Iron % Saturation Total Bilirubin Troponin I Total Protein Albumin HDL Cholesterol 03/17/19 03/17/19 03/18/19 05:56 23:03 05:39 WBC Hgb 9.9 L Hct 33.6 L MCV 72.2 L MCH 21.3 L MCHC 29.5 L RDW 16.3 H Neutrophils # APTT D-Dimer ABG pH ABG pCO2 ABG pO2 ABG HCO3 ABG O2 Saturation Potassium 3.1 L 3.2 L Chloride 97 L Carbon Dioxide 39 H Glucose POC Glucose (mg/dL) Phosphorus Iron 20 L % Saturation 5.97 L Total Bilirubin Troponin I Total Protein Albumin HDL Cholesterol 22 L 03/18/19 03/19/19 03/19/19 05:39 06:07 10:53 WBC Hgb Hct MCV MCH MCHC RDW Neutrophils # APTT D-Dimer ABG pH 7.50 H ABG pCO2 47 H ABG pO2 63 L ABG HCO3 37 H ABG O2 Saturation 90.4 L Potassium 3.1 L Chloride 96 L 94 L Carbon Dioxide 38 H 40 H Glucose POC Glucose (mg/dL) Phosphorus Iron % Saturation Total Bilirubin Troponin I Total Protein Albumin HDL Cholesterol 03/19/19 13:08 WBC Hgb Hct MCV MCH MCHC RDW Neutrophils # APTT D-Dimer ABG pH ABG pCO2 ABG pO2 ABG HCO3 ABG O2 Saturation Potassium Chloride Carbon Dioxide Glucose POC Glucose (mg/dL) 110 H Phosphorus Iron % Saturation Total Bilirubin Troponin I Total Protein Albumin HDL Cholesterol
--- NOTE | 2019-03-19 16:38 | P.PN ---
Progress Note - Text Code stroke was initiated during heart catheterization due to patient's diminished responsiveness. I was called separately by patient's nurse from the floor to evaluate the patient for alteration in mental status. I wanted the patient intensive care unit. Code stroke team evaluation was underway per hospital protocol and day were doing there evaluation independently for me. Per pathology laboratory technologist nurse Jennie, patient received fentanyl and Versed for the procedure and over the procedure became unresponsive. Patient was given flumazenil and Narcan and after few minutes she started responding and she was taken to the CAT scan. When I evaluated the patient in intensive care unit after the CAT scan, patient was groggy appearing but alert and orientated to time, place, year, location to herself and other people in the room. Patient immediately recognized me and able to recollect conversation that he had earlier that day. Vital signs were stable with normal oxygenation. Physical exam head and neck examination was unremarkable there is no stridor there was no JVD conjunctiva is clear oropharyngeal mucosa is clear without any foreign bodies or obstructions, lungs were clear to auscultation, cardiovascular was regular rhythm and rate S1-S2, abdomen bowel sounds are present, soft nontender without masses, lower extremities without any significant edema. Puncture site in the right groin clean without any bleeding or signs of hematoma. 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 Overall, my impression was acute alteration in mental status and encephalopathy due to probable side effect of colchicine urination along with patient body habitus and probably underlying obesity hypoventilation. Patient responded well to therapy and her mental status has been improving progressively. I evaluated the patient are later in her mental status was significantly improved and it was his baseline. On my reevaluation 2 hours later she was completely at baseline without any new complaints. Code stroke team evaluation was done separately please see the note from code stroke team.
--- NOTE | 2019-03-19 16:40 | P.PN ---
Progress Note - Text With patient's permission, I had multiple very long conversations with patient's significant other Alona and her brother and updated him in detail to the best of my knowledge about patient's condition and plan of care.
[2019-03-19] MEDS: MAGNESIUM SULFATE-D5W PMX 1 GM in DEXTROSE/WATER 1 100ML.BAG IVPB SCH ×2 (16:52→18:53)
--- NOTE | 2019-03-19 18:31 | US ---
EXAMINATION TYPE: US lower ext pseudo artery RT DATE OF EXAM: 03/19/2019 COMPARISON: NONE CLINICAL HISTORY: right leg immobility post- heart cath. Heart cath performed today. Patient unable to move leg. EXAM PERFORMED: Grayscale and color Doppler duplex imaging performed of the groin, post cardiac bin ter to assess for pseudoaneurysm. SIDE PERFORMED: Right Color and Waveform Doppler performed to assess for the presence of pseudoaneurysm; Is there ultrasound evidence of a pseudoaneurysm: no Is there evidence of AV shunting: no Is there a fluid collection present: no Right CFV wall appears to be thickened= 4.6 mm. IMPRESSION: There is no evidence of pseudoaneurysm of the right femoral artery. No evidence of a hematoma. There is some thickening on the anterior wall of the femoral vein that could be blood clot.
[2019-03-19] MEDS: POTASSIUM CHLORIDE ER 10 MEQ TAB.ER.PRT PO SCH (18:52)
--- NOTE | 2019-03-19 19:38 | CT ---
EXAMINATION TYPE: CT sacrum wo con DATE OF EXAM: 03/19/2019 COMPARISON: None HISTORY: Right leg paralysis post cathertization CT DLP: 2245.4 mGycm Automated exposure control for dose reduction was used. Multiple axial sections were obtained from L5 through S1 vertebra without contrast. Segments have normal alignment. Prevertebral soft tissues appear normal. There is no evidence of pelv ic hematoma. There is no sign of free fluid in the pelvis. Urinary bladder is large. There is no evid ence of a fracture. Sacroiliac joints appear normal. Impression negative CT scan of the sacrum.
--- NOTE | 2019-03-19 19:39 | CT ---
EXAMINATION TYPE: CT lumbar spine wo con DATE OF EXAM: 03/19/2019 COMPARISON: None HISTORY: Right leg paralysis post cathertization CT DLP: 2245.4 mGycm Automated exposure control for dose reduction was used. Multiple axial sections were obtained from the level of T12-S2 vertebra without contrast. Lumbar vertebra have fairly normal spacing and alignment. Posterior elements are intact. There is no compression fracture. Sacroiliac joints appear intact. There is no paraspinal mass. IMPRESSION: Negative CT scan of the lumbar spine. No fracture.
--- NOTE | 2019-03-19 19:45 | CT ---
EXAMINATION TYPE: CT abdomen pelvis wo con DATE OF EXAM: 03/19/2019 COMPARISON: None HISTORY: Right leg paralysis post cathertization CT DLP: 2245.4 mGycm Automated exposure control for dose reduction was used. Multiple axial sections were obtained from the diaphragm to the floor the pelvis without contrast. FINDINGS: There is contrast in both kidneys from contrast injection today. There is small left pleural effusion. Heart is enlarged. There is no pericardial effusion. Lung bases are clear of consolidation. Liver spleen pancreas gallbladder appear normal. Bile ducts are not dilated. There is no adrenal mass . Kidneys have normal size and contour. There is no hydronephrosis. There is no retroperitoneal adenopa thy. There is enlarged uterus consistent with fibroids. Uterus measures 13 x 9.5 cm. Uterus is anteve rted. There is no free fluid in the pelvis. There is no inguinal hernia. Bladder is empty. There is F oley catheter in the urinary bladder. There is air in the appendix which appears normal. There is no mesenteric edema. There is no ascites or free air. There is no evidence of a bowel obstruction. Lumbar spine is intact. Bony pelvis is intact. Hip joints appear normal. There is some mild fat stranding in the right inguinal region consistent with recent catheterization. There is no evidence of a hematoma. IMPRESSION: Negative CT scan of the abdomen and pelvis. No evidence of retroperitoneal hemorrhage.
[2019-03-20] MEDS: HEPARIN SODIUM,PORCINE 5,000 UNIT/ML 1 ML VIAL SQ SCH ×3 (00:22→18:20)
[2019-03-20] MEDS: FUROSEMIDE 10 MG/ML 4 ML VIAL IV SCH (00:25)
[2019-03-20] MEDS: POTASSIUM CHLORIDE ER 20 MEQ TAB.ER PO SCH ×2 (00:36→02:23)
[2019-03-20] MEDS: MORPHINE SULFATE 2 MG/ML SYRINGE IVP PRN (02:23)
[2019-03-20 05:34] LABS: HCT 38.1 % (34.0-46.0); HGB 10.9 gm/dL (11.4-16.0); Hypochromasia Marked; MCHC 28.6 g/dL (31.0-37.0); MCV 73.6 fL (80.0-100.0); Mean Platelet Volume 7.3; Microcytosis Slight; Platelet Count 329 k/uL (150-450); RBC 5.17 m/uL (3.80-5.40); RDW 15.9 % (11.5-15.5); WBC 10.7 k/uL (3.8-10.6)
[2019-03-20 05:45] LABS: African American GFR (CKD) >90 (>60 ml/min/1.73 sqM); Anion Gap 8 mmol/L; Blood Urea Nitrogen 14 mg/dL (7-17); Calcium 8.3 mg/dL (8.4-10.2); Carbon Dioxide 36 mmol/L (22-30); Chloride 96 mmol/L (98-107); Cholesterol 124 mg/dL (<200); Glucose 87 mg/dL (74-99); HDL Cholesterol 35 mg/dL (40-60); LDL Cholesterol,Calculated 67 mg/dL (0-99); Magnesium 2.2 mg/dL (1.6-2.3); Non-African American GFR(CKD) 84 (>60 ml/min/1.73 sqM); Sodium 140 mmol/L (137-145); Triglycerides 108 mg/dL (<150)
[2019-03-20] MEDS: CARVEDILOL 6.25 MG TAB PO SCH ×2 (06:56→18:23)
--- NOTE | 2019-03-20 09:08 | P.GSCN ---
History of Present Illness Consult date: 03/20/19 History of present illness: The patient is a 43-year-old female with a past medical history of hypertension who does not seek regular medical care who presented to [facility] on March 14 for chest pain and dyspnea. She had workup and evaluation that showed an EF of 25%. She was taken to director labor standards yesterday for a heart cath via the right femoral artery. At the conclusion of the procedure she was given Narcan in order to wake up. After a code stroke was called since she was unable to move her right leg. She was also then given TPA after this code stroke and transferred to the ICU. We are asked to see the patient regarding her inability to move her right leg as well as possible eval for vascular causes. At this time she denies any pain down into her foot. She does have some pain in her thigh and into her groin. She is able to move her foot more than she was previously yesterday, she is able to feel more than she was yesterday. She denies any fevers, chills, nausea or vomiting. She has exertional dyspnea Review of Systems 14 point review of systems performed, pertinent positives and negatives per the HPI Past Medical History Past Medical History: Hypertension History of Any Multi-Drug Resistant Organisms: None Reported Past Surgical History: No Surgical Hx Reported Past Psychological History: No Psychological Hx Reported Smoking Status: Never smoker Past Alcohol Use History: None Reported Past Drug Use History: None Reported - Past Family History Father Family Medical History: Coronary Artery Disease (CAD) Medications and Allergies Home Medications Medication Instructions Recorded Confirmed Type Ibuprofen/Diphenhydramine HCl 2 cap PO HS PRN 03/14/19 03/14/19 History [Advil Pm Liqui-Gels] Allergies Allergy/AdvReac Type Severity Reaction Status Date / Time No Known Allergies Allergy Verified 03/14/19 22:06 Surgical - Exam Vital Signs Temp Pulse Resp BP Pulse Ox 98.8 F 124 H 18 184/116 99 03/14/19 19:08 03/14/19 19:08 03/14/19 19:08 03/14/19 19:08 03/14/19 19:08 Gen. is a pleasant operative female in no acute distress. HEENT is normocephalic, atraumatic, excellent motion intact. Poor dentition. Heart is regular at this time. Lungs are clear bilaterally. Abdomen is obese, soft, n ontender nondistended. She has palpable radial femoral and dorsalis pedis pulses bilaterally. Her right groin is soft. There is some mild tenderness. No evidence of hematoma or pseudoaneurysm. She is sensory intact to the bilateral lower extremities with equal sensation. She is able to wiggle her toes but cannot do much in the way of lifting or moving her leg due to pain and discomfort and also reported inability to do so. Normal mood and affect, slightly anxious. Results CT abdomen as well as the right groin ultrasound are reviewed. No evidence of hematoma or pseudoaneurysm on imaging. There is a slight thickening to the right common femoral vein, but no evidence of acute thrombus. - Labs 03/20/19 05:03 03/20/19 05:03 Abnormal Lab Results - Last 24 Hours (Table) 03/19/19 03/19/19 03/19/19 Range/Units 10:53 13:08 23:54 WBC (3.8-10.6) k/uL Hgb (11.4-16.0) gm/dL MCV (80.0-100.0) fL MCH (25.0-35.0) pg MCHC (31.0-37.0) g/dL RDW (11.5-15.5) % ABG pH 7.50 H (7.35-7.45) ABG pCO2 47 H (35-45) mmHg ABG pO2 63 L (83-108) mmHg ABG HCO3 37 H (21-25) mmol/L ABG O2 Saturation 90.4 L (94-97) % Potassium 3.2 L (3.5-5.1) mmol/L Chloride (98-107) mmol/L Carbon Dioxide (22-30) mmol/L POC Glucose (mg/dL) 110 H (75-99) mg/dL Calcium (8.4-10.2) mg/dL HDL Cholesterol (40-60) mg/dL 03/20/19 03/20/19 Range/Units 05:03 05:03 WBC 10.7 H (3.8-10.6) k/uL Hgb 10.9 L (11.4-16.0) gm/dL MCV 73.6 L (80.0-100.0) fL MCH 21.0 L (25.0-35.0) pg MCHC 28.6 L (31.0-37.0) g/dL RDW 15.9 H (11.5-15.5) % ABG pH (7.35-7.45) ABG pCO2 (35-45) mmHg ABG pO2 (83-108) mmHg ABG HCO3 (21-25) mmol/L ABG O2 Saturation (94-97) % Potassium (3.5-5.1) mmol/L Chloride 96 L (98-107) mmol/L Carbon Dioxide 36 H (22-30) mmol/L POC Glucose (mg/dL) (75-99) mg/dL Calcium 8.3 L (8.4-10.2) mg/dL HDL Cholesterol 35 L (40-60) mg/dL Diabetes panel 03/19/19 03/19/19 03/20/19 Range/Units 16:47 23:54 05:03 Sodium 140 (137-145) mmol/L Potassium 3.5 3.2 L 4.0 (3.5-5.1) mmol/L Chloride 96 L (98-107) mmol/L Carbon Dioxide 36 H (22-30) mmol/L BUN 14 (7-17) mg/dL Creatinine 0.85 (0.52-1.04) mg/dL Glucose 87 (74-99) mg/dL Calcium 8.3 L (8.4-10.2) mg/dL Triglycerides 108 (<150) mg/dL HDL Cholesterol 35 L (40-60) mg/dL Thyroid panel 03/20/19 Range/Units 05:03 TSH 2.810 (0.465-4.680) mIU/L Calcium panel 03/20/19 Range/Units 05:03 Calcium 8.3 L (8.4-10.2) mg/dL Pituitary panel 03/19/19 03/19/19 03/20/19 Range/Units 16:47 23:54 05:03 Sodium 140 (137-145) mmol/L Potassium 3.5 3.2 L 4.0 (3.5-5.1) mmol/L Chloride 96 L (98-107) mmol/L Carbon Dioxide 36 H (22-30) mmol/L BUN 14 (7-17) mg/dL Creatinine 0.85 (0.52-1.04) mg/dL Glucose 87 (74-99) mg/dL Calcium 8.3 L (8.4-10.2) mg/dL TSH 2.810 (0.465-4.680) mIU/L Adrenal panel 03/19/19 03/19/19 03/20/19 Range/Units 16:47 23:54 05:03 Sodium 140 (137-145) mmol/L Potassium 3.5 3.2 L 4.0 (3.5-5.1) mmol/L Chloride 96 L (98-107) mmol/L Carbon Dioxide 36 H (22-30) mmol/L BUN 14 (7-17) mg/dL Creatinine 0.85 (0.52-1.04) mg/dL Glucose 87 (74-99) mg/dL Calcium 8.3 L (8.4-10.2) mg/dL Assessment and Plan Assessment: #1 right lower extremity weakness #2 recent right heart catheterization #3 recent TPA for code stroke #4 medical noncompliance #5 CHF #6 hypertension Plan: at this point a bleeder to be any arterial or venous injury that was obvious. The ultrasound was reviewed and shows no evidence of hematoma or pseudoaneurysm. She has a palpable distal dorsalis pedis pulse. Her legs are warm bilaterally. I don't think that the thickening of the femoral vein is of any consequence, may correlate to a old chronic thrombus but no evidence of new acute thrombus. The vein remained compressible. Given clinical picture, doubt any sort of true stroke, agree with neurology that this likely is more a consequence of the local femoral nerve being affected, likely by infiltrated anesthetic now with a nerve block. encourage patient to move her lower extremities versus possible starting with her foot and hopefully over time this should increase his risk for leg. There are no restrictions from my standpoint as far as the arterial puncture site. Thank you for allowing me to participate in the care of your patient
--- NOTE | 2019-03-20 09:12 | P.PN ---
Subjective Progress Note Date: 03/20/19 I'm seeing this patient in follow-up on 03/20/2019. The patient's motor function the right lower extremity is somewhat improved compared to yesterday. She is experiencing pain and some numbness and a lot of discomfort especially with palpation or movement of the right lower extremity. Her reflexes in the right knee is down and that is no Babinski and there is no clonus. Vascularly she is intact. She underwent an arterial Doppler to the right lower extremity and there is no evidence of any pseudoaneurysm. She also had a CAT scan of the lumbosacral spine that showed no acute abnormalities. CAT scan of the abdomen and pelvis showed no evidence of any retroperitoneal hematoma or pseudoaneurysm formation. The patient is doing well otherwise. No respiratory difficulties. She is hemodynamically stable. The cardiac catheterization came back with normal coronaries. She has an ejection fraction of less than 20% with moderate degree of pulmonary hypertension. Cardiology is on the case. No seizure activity. Neurologist on the case. MRI of the brain is to be done today. She is awake. She is alert. She is very responsive and she is aware of her surroundings. Her speech is normal. She is very coherent. Objective - Vital Signs Vital signs: Vital Signs Temp 97.4 F L 03/20/19 04:00 Pulse 90 03/20/19 07:00 Resp 13 03/20/19 07:00 BP 107/60 03/20/19 07:00 Pulse Ox 94 L 03/20/19 07:00 Intake & Output 03/19/19 03/20/19 03/20/19 18:59 06:59 18:59 Intake Total 581 1100 Output Total 1800 1350 Balance -1219 -250 Weight 109 kg Intake: IV 581 700 Alteplase 81 mg In Empty 81 Bag 1 bag @ 81 mls/hr IV ONCE STA Rx#:[id number] Magnesium Sulfate-D5w Pmx 100 100 1 gm In Dextrose/Water 1 100ml.bag @ 100 mls/hr IVPB Q1H ARNOLD Rx#: [id number] Sodium Chloride 0.9% 1, 300 600 000 ml @ 50 mls/hr IV . Q20H ARNOLD Rx#:[id number] Oral 0 400 Output: Urine 1800 1350 Other: Voiding Method Indwelling Catheter Indwelling Catheter # Voids 1 # Bowel Movements 0 - Exam The patient appeared well nourished and normally developed. Vital signs as documented. Head exam is unremarkable. No scleral icterus or corneal arcus noted. Neck is without jugular venous distension, thyromegaly, or carotid bruits. Carotid upstrokes are brisk bilaterally. Lungs are clear to auscultation and percussion. Cardiac exam reveals the PMI to be normally sized and situated. Rhythm is regular. First and second heart sounds normal. No murmurs, rubs or ga llops. Abdominal exam reveals normal bowel sounds, no masses, no organomegaly and no aortic enlargement. Extremities are nonedematous and both femoral and pedal pulses are normal.Examination of the skin revealed no evidence of significant rashes, suspicious appearing nevi or other concerning lesions. Neurologically the patient is awake and alert and there is no cranial nerve deficits. Pupils are equal and reactive to light. No Babinski. No clonus. His motor weakness in the right lower extremity. She is able to move her right leg horizontally. She is unable to lift it up again sporadically. She has significant sensory changes. She gets feeling which is altered and the sensitivity functions are somewhat altered and the patient gets quite uncomfortable and she reports pain upon moving the right lower extremity. She is having depressive flex and the right knee. No Babinski. No clonus. Motor function is still weak although somewhat improved compared to yesterday. The motor function the other extremities are within normal limits with 5 out of 5 power. The puncture site in the right femoral area is dry clean and intact and there is no swelling or hematoma formation. - Labs CBC & Chem 7: 03/20/19 05:03 03/20/19 05:03 Labs: Abnormal Lab Results - Last 24 Hours (Table) 03/19/19 03/19/19 03/19/19 Range/Units 10:53 13:08 23:54 WBC (3.8-10.6) k/uL Hgb (11.4-16.0) gm/dL MCV (80.0-100.0) fL MCH (25.0-35.0) pg MCHC (31.0-37.0) g/dL RDW (11.5-15.5) % ABG pH 7.50 H (7.35-7.45) ABG pCO2 47 H (35-45) mmHg ABG pO2 63 L (83-108) mmHg ABG HCO3 37 H (21-25) mmol/L ABG O2 Saturation 90.4 L (94-97) % Potassium 3.2 L (3.5-5.1) mmol/L Chloride (98-107) mmol/L Carbon Dioxide (22-30) mmol/L POC Glucose (mg/dL) 110 H (75-99) mg/dL Calcium (8.4-10.2) mg/dL HDL Cholesterol (40-60) mg/dL 03/20/19 03/20/19 Range/Units 05:03 05:03 WBC 10.7 H (3.8-10.6) k/uL Hgb 10.9 L (11.4-16.0) gm/dL MCV 73.6 L (80.0-100.0) fL MCH 21.0 L (25.0-35.0) pg MCHC 28.6 L (31.0-37.0) g/dL RDW 15.9 H (11.5-15.5) % ABG pH (7.35-7.45) ABG pCO2 (35-45) mmHg ABG pO2 (83-108) mmHg ABG HCO3 (21-25) mmol/L ABG O2 Saturation (94-97) % Potassium (3.5-5.1) mmol/L Chloride 96 L (98-107) mmol/L Carbon Dioxide 36 H (22-30) mmol/L POC Glucose (mg/dL) (75-99) mg/dL Calcium 8.3 L (8.4-10.2) mg/dL HDL Cholesterol 35 L (40-60) mg/dL Assessment and Plan Plan: #1. Acute onset of right leg motor weakness, decreased sensation, rule out acute CVA, CT brain and angiography CT of the brain showed no acute intracranial process, initial NIH score is 5, patient is having TPA infusion for her symptoms. Nevertheless, the presentation is more consistent with femoral nerve palsy probably from the manipulation that was done at time of cardiac catheterization. Motor function is somewhat improved compared to yesterday. She is depressed reflexes and altered sensory function in the right lower extremity. The patient has no Babinski. No clonus. Reflexes in the knees depressed. CAT scan of the lumbosacral spine was within normal limits. CAT scan of the abdomen and pelvis showed no evidence of any hematoma. No evidence of any pseudoaneurysm formation and arterial Doppler was also negative. The patient had a normal CAT scan of the brain. Normal CT angiogram of the brain. MRI is to follow. Unlikely to be related to a CVA. #2. Left chest pain and dyspnea related to acute exacerbation of systolic congestive heart failure, newly discovered. Echocardiogram showed a severely impaired left ventricular systolic function with EF of less than 20% #3. Hypertensive urgency on presentation, with mild cardiogenic pulmonary edema #4. History of hypertension, not treated, patient was previously on lisinopril #5. One and leak with elevated troponins, heart catheterization today showed normal coronary arteries #6. Iron deficiency anemia #7. Hypokalemia and hypomagnesemia, improved #8. Family history of heart disease #9. Lifetime nonsmoker, no history of chronic lung disease, no history of EtOH or drug abuse #10. Morbid obesity Plan Physical therapy for passive range of motion of the right lower extremity Proceed with an MRI of the brain although low suspicion for CVAs or any central neurologic cause for her right lower extremity weakness and deficits Cardiac catheterization results were noted and the patient has normal coronaries Management of cardiomyopathy per cardiology Change Lasix to 40 mg once a day and discontinue IV Lasix We'll continue to follow
[2019-03-20] MEDS: ASPIRIN 81 MG PO SCH (09:18)
[2019-03-20] MEDS: ATORVASTATIN 40 MG TAB PO SCH (09:49)
[2019-03-20] MEDS: LISINOPRIL 20 MG TAB PO SCH (09:49)
[2019-03-20] MEDS: FUROSEMIDE 40 MG TAB PO SCH (09:49)
[2019-03-20] MEDS: SPIRONOLACTONE 25 MG TAB PO SCH (09:49)
--- NOTE | 2019-03-20 10:28 | P.PN ---
Subjective Summary: 43-year-old female without past medical history admitted with shortness of breath and diagnosed with new onset systolic heart failure. He patient has been diuresed and respiratory status significantly improved. Ischemic workup included heart catheterization yesterday. During the procedure her dizziness was diminished and code stroke was called. Alteration in mental status was reversed with flumazenil and Narcan and she completely recovered. She did have some paresthesia in the right thigh and tele neurology applied TPA. Hence she is being observed intensive care unit today. Interval history: No new events last night. some paresthesias and allodynia along the lateral side of her right thigh up to the knee. No new complaints. MRI of the brain is pending at 24-hour ariadne post TPA Objective - Vital Signs Vital signs: Vital Signs Temp 97.9 F 03/20/19 08:00 Pulse 97 03/20/19 09:30 Resp 59 H 03/20/19 09:30 BP 108/64 03/20/19 09:30 Pulse Ox 96 03/20/19 09:30 Intake & Output 03/19/19 03/20/19 03/20/19 18:59 06:59 18:59 Intake Total 581 1100 150 Output Total 1800 1350 130 Balance -1219 -250 20 Weight 109 kg Intake: IV 581 700 150 Alteplase 81 mg In Empty 81 Bag 1 bag @ 81 mls/hr IV ONCE [facility] Rx#:[id number] Magnesium Sulfate-D5w Pmx 100 100 1 gm In Dextrose/Water 1 100ml.bag @ 100 mls/hr IVPB Q1H [facility] Rx#: [id number] Sodium Chloride 0.9% 1, 300 600 150 000 ml @ 50 mls/hr IV . Q20H [facility] Rx#:[id number] Oral 0 400 Output: Urine 1800 1350 130 Other: Voiding Method Indwelling Catheter Indwelling Catheter Indwelling Catheter # Voids 1 # Bowel Movements 0 - Exam Vital Signs: I have reviewed the vital signs. GENERAL: Well-nourished, Well-developed , no apparent distress, cooperative Eyes: PERRL, extraoculry movements intact, clear conjunctiva Head: : Atraumatic external nose and ears, oropharyngeal mucosa is moist without lesions or exudates Neck: Symmetric, trachea midline, No thyromegaly, no masses or neck vain pulsation, no neck rigidity CVS: +S1/S2, No murmurs or gallops. Peripheral pulses 2+ and equal in all extremities. 1+ pitting edema peripherally RESP: Unlabored respiratory effort. Clear to auscultation bilaterally. Abdomen: Bowel sounds present in all 4 quadrants, Soft to palpation, Nontender/Nondistended, No hepatosplenomegaly, no hernias or masses, no CVA tnderness Musculoskeletal: Extremities w/o deformity, No cyanosis or clubbing, no joint swelling Skin: Warm, Dry. No rashes or lesions Psych: Awake, Alert, & Oriented (AAO) x3 Appropriate mood and affect Neurological: Cranial nerves are intact. She has a good strength in upper extremities. Left lower extremity strength is excellent proximal and distally. Right lower extremity distally in the foot strength is excellent and out of bed without clonus plantar is flexor DTRs are in patella is 1+. She has area of the lateral right thigh nontender to touch. His heart to assess proximal muscular strength since patient is reluctant to move her leg due to discomfort and pain. - Labs CBC & Chem 7: 03/20/19 05:03 03/20/19 05:03 Labs: Abnormal Lab Results - Last 24 Hours (Table) 03/19/19 03/19/19 03/19/19 Range/Units 10:53 13:08 23:54 WBC (3.8-10.6) k/uL Hgb (11.4-16.0) gm/dL MCV (80.0-100.0) fL MCH (25.0-35.0) pg MCHC (31.0-37.0) g/dL RDW (11.5-15.5) % ABG pH 7.50 H (7.35-7.45) ABG pCO2 47 H (35-45) mmHg ABG pO2 63 L (83-108) mmHg ABG HCO3 37 H (21-25) mmol/L ABG O2 Saturation 90.4 L (94-97) % Potassium 3.2 L (3.5-5.1) mmol/L Chloride (98-107) mmol/L Carbon Dioxide (22-30) mmol/L POC Glucose (mg/dL) 110 H (75-99) mg/dL Calcium (8.4-10.2) mg/dL HDL Cholesterol (40-60) mg/dL 03/20/19 03/20/19 Range/Units 05:03 05:03 WBC 10.7 H (3.8-10.6) k/uL Hgb 10.9 L (11.4-16.0) gm/dL MCV 73.6 L (80.0-100.0) fL MCH 21.0 L (25.0-35.0) pg MCHC 28.6 L (31.0-37.0) g/dL RDW 15.9 H (11.5-15.5) % ABG pH (7.35-7.45) ABG pCO2 (35-45) mmHg ABG pO2 (83-108) mmHg ABG HCO3 (21-25) mmol/L ABG O2 Saturation (94-97) % Potassium (3.5-5.1) mmol/L Chloride 96 L (98-107) mmol/L Carbon Dioxide 36 H (22-30) mmol/L POC Glucose (mg/dL) (75-99) mg/dL Calcium 8.3 L (8.4-10.2) mg/dL HDL Cholesterol 35 L (40-60) mg/dL Assessment and Plan Assessment: Acute exacerbation of systolic CHF with EF 20%, newly discovered Continues diuresis, spironolactone, beta garry, AHMET inhibitor Fluid intake at home discussed Daily weights at home discussed Paresthesia and allodynia right thigh Doubt ischemic CVA event 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 Awaiting MRI for confirmation CT of the abdomen and pelvis is negative for any pathology hematoma If MRI of the head negative may consider EMNG Neurology following this Elevated troponin of undetermined significance with hypokinetic wall motion cardiac catheterization today Hypokalemia Potassium has been reports as per placement protocol HTN urgency, improved - follow - Continue with lisinopril and coreg microcytic anemia - Hemoglobin stable Iron studies indicative of iron deficiency We'll start IV iron while here in the hospital and discharged on oral iron Morbid obesity BMI 36.9 - structured outpatient weight loss Intractable N/V, resolved
--- NOTE | 2019-03-20 15:24 | P.PN ---
Progress Note - Text Progress Note Date: 03/20/19 SUBJECTIVE/INTERVAL EVENTS: [ ] PHYSICAL EXAMINATION: VITAL SIGNS: T 97.4 HR 90 RR 14 BP 98/65 O2 sat 98% on 2L O2 via NC GEN.: NAD, tearful but cooperative HEENT: NCAT, sclera without icterus NECK: Supple, no carotid bruit SKIN AND EXTREMITIES: Warm to touch, no edema NEURO: MENTAL STATUS: Patient alert and oriented to self, place, time. Able to name the current president. Speech fluent, able to name and repeat, following all commands readily. No right and left disorientation, neglect. CRANIAL NERVES II THROUGH XII: II: Pupils are equal and reactive to light symmetrically. Visual nuñez are intact. III, IV, : No ptosis. Extraocular movements full. No nystagmus. V: Facial sensation intact from V1-3. VII. No clear facial asymmetry. VIII: Hearing intact to finger rub bilaterally. IX, X: Symmetric palate elevation. XI: Shoulder shrug intact. XII: Tongue midline without fasciculation or atrophy. MOTOR: Normal bulk/tone. No pronator drift or tremor. Strength is 5/5 in b/l UE and LLE. Patient with 5/5 strength in RLE plantar/dorsi flexion, but difficulty with (yet improved) bending knee and flexing hip, mainly due to pain. Patient also reporting pain in her R buttock. SENSORY: Intact to light touch in all 4 extremities. REFLEXES: 2+ throughout. Toes are downgoing. COORDINATION: Finger to nose intact. No dysmetria. GAIT: not assessed DIAGNOSTIC TESTING: LABORATORY: WBC 9.8 Hgb 9.9 Platelet 301 Na 141 K 3.1 Cl 94 CO2 40 BUN 13 Cr 0.93 glucose 96 Total cholesterol 124 LDL 67 HDL 35 TG 108 TSH 2.810 IMAGING: CT Head w/o contrast 03/19/2019: No acute intracranial process is seen at this time. CTA Head and Neck w/ and w/o contrast 03/19/2019: No significant diameter reduction of neck vessels to account for patient's sympt oms. [place] of [place] unremarkable. TTE 03/15/2019: SR. Technically difficult stuyd. LV size normal. Severe global hypokinesis of LV. EF <20%. RV is mod-severely enlarged. LA is severely dilated. RA is normal size. ASSESSMENT: 43 year-old woman with PMhx of HTN, who presented to [facility] on 03/14/2019 for chest pain and dyspnea x1 month, found with EF of 25%, consulting Neurology for concern for stroke. Patient reporting pain his R buttock after cardiac cath during which the R femoral artery was accessed for procedure. Patient is s/p tPA. Will proceed with stroke work-up and management, at this time, risk factor possibly from her low EF, but higher on the differential is femoral nerve damage during cardiac cath. MRI brain w/o contrast today with no acute ischemic stroke. No acute intracranial abnormality. T2 flair showing white matter changes, likely microvascular changes from patient's hx of HTN and now with heart failure. Patient's RLE weakness improved since yesterday but still limited due to pain RECOMMENDATIONS: 1. discontinue aspirin/statin unless cardiology recommends it for cardiac reasons 2. PT/OT treatment 3. Neurology will continue to follow 4. Patient needs to follow up with neurologist as outpatient with her 1-2 weeks of discharge, EMG/NCS would be helpful in making a diagnosis 5. Neurology will sign off at this time. Please contact with additional questions or concerns.
--- NOTE | 2019-03-20 16:15 | MR ---
MR brain without contrast HISTORY: Right lower extremity weakness Multiplanar multisequence imaging through the brain, correlation to CT brain dated 03/11/2019, fast br ain protocol was utilized There is no restricted diffusion. There is no hemorrhage or hydrocephalus. Brain signal is remarkable for hyperintensity and inversion recovery T2-weighted sequences within the frontal lobes, periventri cular white matter, subcortical white matter, approximately 30-40 lesions are present. Largest in the right frontal lobe measures 11 mm adjacent to the frontal horn of the right lateral ventricle on axi al image 21. Largest left-sided lesion on axial image 20 measures approximately 9 mm. There are yusuf l vascular flow voids. Orbits show symmetric appearance. Corpus callosum, pituitary, cervical medulla ry junction, cerebellopontine angles are unremarkable. Sinuses are well aerated. IMPRESSION: Nonspecific white matter demyelination, correlate for possible multiple sclerosis in the appropriate clinical setting, Lyme disease, vasculitis, hypertension, migraine headaches. No evidence of acute ischemia.
[2019-03-20 17:21] LABS: Hemoglobin A1C 5.8 % (4.0-6.0)
--- NOTE | 2019-03-20 18:00 | P.PN ---
Subjective This is Alexandra Alejandre PA-C dictating a progress note on this patient The patient was interviewed and examined by me as well as by Dr. Singh Case discussed with Dr. Singh and he agrees with the plan of care HPI/interval history Patient is a 43-year-old female with a past medical history of hypertension who presented with complaints of shortness of breath and was found to have severely reduced systolic function with an EF of less than 20%. Yesterday she underwent a coronary angiogram which did not show any occlusive coronary artery disease. After the heart cath, she would not wake up and cannot move her right lower extremity so a code stroke was called. She was given TPA and transferred to the ICU. Neurology evaluated the patient and believes she may have had femoral nerve damage during the cardiac cath. She underwent an MRI today showing nonspecific white matter demyelination, possible multiple sclerosis, Lyme's disease, vasculitis, hypertension, migraine headaches, no evidence of acute ischemia. Patient seen and examined resting in bed. Expresses her frustration about her leg. Feels very anxious. Still short of breath on exertion. No chest pain. EXAMINATION Patient is afebrile, pulse in the 90s, respirations 16, blood pressure 105/63, oxygen saturation 94% on room air Patient seen and examined resting in bed, in no acute distress Lungs are clear to auscultation bilaterally Heart is regular, no audible murmurs Right groin access site only tender to palpation, no palpable hematomas REVIEW OF LABS, ECG WBC 10.7, hemoglobin 10.9, platelets 329, potassium 4.0, BUN 14, creatinine 0.85 IMPRESSION / ASSESSMENT: Symptoms of shortness of breath secondary to acute systolic congestive heart failure Severe cardiomyopathy, EF less than 20%, etiology unknown Elevated troponin secondary to above Hypertension Coronary angiogram showing no occlusive coronary artery disease Right lower extremity weakness after heart cath, status post TPA, MRI showing no evidence of acute ischemia, neurology following, believes it's possibly related to femoral nerve injury PLAN: Continue Lipitor, Coreg 6.25 twice a day, lisinopril 20 mg daily, spironolactone 50 mg daily, and Lasix Maximize medical management of cardiomyopathy as her blood pressure will tolerate Monitor telemetry for arrhythmias Awaiting neurology input on right lower extremity weakness and brain MRI results Objective - Vital Signs Vital signs: Vital Signs Temp 98.2 F 03/20/19 16:00 Pulse 109 H 03/20/19 17:00 Resp 16 03/20/19 17:00 BP 105/63 03/20/19 17:00 Pulse Ox 98 03/20/19 17:10 Intake & Output 03/19/19 03/20/19 03/20/19 18:59 06:59 18:59 Intake Total 581 1100 550 Output Total 1800 1350 1255 Balance -1219 -250 -705 Weight 109 kg Intake: IV 581 700 550 Alteplase 81 mg In Empty 81 Bag 1 bag @ 81 mls/hr IV ONCE [facility] Rx#:[id number] Magnesium Sulfate-D5w Pmx 100 100 1 gm In Dextrose/Water 1 100ml.bag @ 100 mls/hr IVPB Q1H [facility] Rx#: [id number] Sodium Chloride 0.9% 1, 300 600 550 000 ml @ 50 mls/hr IV . Q20H [facility] Rx#:[id number] Oral 0 400 Output: Urine 1800 1350 1255 Other: Voiding Method Indwelling Catheter Indwelling Catheter Indwelling Catheter # Voids 1 # Bowel Movements 0 - Labs CBC & Chem 7: 03/20/19 05:03 03/20/19 05:03 Labs: Abnormal Lab Results - Last 24 Hours (Table) 03/19/19 03/20/19 03/20/19 Range/Units 23:54 05:03 05:03 WBC 10.7 H (3.8-10.6) k/uL Hgb 10.9 L (11.4-16.0) gm/dL MCV 73.6 L (80.0-100.0) fL MCH 21.0 L (25.0-35.0) pg MCHC 28.6 L (31.0-37.0) g/dL RDW 15.9 H (11.5-15.5) % Potassium 3.2 L (3.5-5.1) mmol/L Chloride 96 L (98-107) mmol/L Carbon Dioxide 36 H (22-30) mmol/L Calcium 8.3 L (8.4-10.2) mg/dL HDL Cholesterol 35 L (40-60) mg/dL
[2019-03-20] MEDS: ALPRAZolam 0.25 MG TAB PO PRN (18:21)
[2019-03-20] MEDS: POTASSIUM CHLORIDE ER 10 MEQ TAB.ER.PRT PO SCH (18:22)
[2019-03-20] MEDS: HYDROcodone/APAP 5-325MG 1 EACH TAB PO PRN (21:26)
[2019-03-21] MEDS: HEPARIN SODIUM,PORCINE 5,000 UNIT/ML 1 ML VIAL SQ SCH ×4 (00:06→22:59)
[2019-03-21] MEDS: ALPRAZolam 0.25 MG TAB PO PRN ×2 (00:53→09:38)
[2019-03-21 05:15] LABS: Anisocytosis Slight; HCT 35.9 % (34.0-46.0); HGB 10.4 gm/dL (11.4-16.0); Hypochromasia Marked; MCH 21.3 pg (25.0-35.0); MCV 73.5 fL (80.0-100.0); Mean Platelet Volume 8.2; Microcytosis Moderate; Platelet Count 288 k/uL (150-450); RBC 4.88 m/uL (3.80-5.40); RDW 16.2 % (11.5-15.5); WBC 12.1 k/uL (3.8-10.6)
[2019-03-21 05:28] LABS: African American GFR (CKD) >90 (>60 ml/min/1.73 sqM); Anion Gap 5 mmol/L; Blood Urea Nitrogen 13 mg/dL (7-17); C Reactive Protein 9.9 mg/L (<10.0); Calcium 8.8 mg/dL (8.4-10.2); Carbon Dioxide 34 mmol/L (22-30); Chloride 98 mmol/L (98-107); Glucose 123 mg/dL (74-99); Magnesium 2.1 mg/dL (1.6-2.3); Non-African American GFR(CKD) >90 (>60 ml/min/1.73 sqM); Sodium 137 mmol/L (137-145)
[2019-03-21 06:02] LABS: Erythrocyte Sedimentation Rate 13 mm/hr (0-20)
--- NOTE | 2019-03-21 07:32 | XR ---
EXAMINATION TYPE: XR chest 1V portable DATE OF EXAM: 03/21/2019 CLINICAL HISTORY: Difficulty breathing and pulmonary edema progress study. TECHNIQUE: Single AP portable upright view of the chest is obtained. COMPARISON: Chest x-ray from 2 days earlier. FINDINGS: Overlying EKG leads are redemonstrated. There is persistent cardiomegaly. There is persist ent small left pleural effusion and associated patchy left basilar atelectasis or infiltrate. Right l yumiko is clear. Osseous structures are intact. IMPRESSION: Overall stable findings, cardiomegaly with small left pleural effusion and associated p atchy left basilar atelectasis and/or infiltrate redemonstrated.
[2019-03-21] MEDS: CARVEDILOL 6.25 MG TAB PO SCH ×2 (07:46→17:36)
[2019-03-21] MEDS: HYDROcodone/APAP 5-325MG 1 EACH TAB PO PRN ×2 (07:49→21:18)
--- NOTE | 2019-03-21 08:09 | P.PN ---
Subjective Progress Note Date: 03/21/19 On today's evaluation of 03/21/2019 the patient continues to have profound weakness in the right lower extremity. Unable to lift it up against gravity. She is having also pain upon removing the right lower extremity passively. She feels a lot of discomfort and crampy sensation whenever her leg is moved. She is able to wiggle her toes. No new onset neurologic deficits at all. In terms of further workup, the patient had an MRI of the brain that showed some abnormal findings which included nonspecific white matter demyelination which obviously also raised the concern for MS. The MRI showed periventricular white matter changes along with subcortical white matter changes approximately 30-40 lesions were present largest in the right frontal lobe measuring 11 mm and also in the right lateral ventricle and the largest on the left is around 9 mm in size. The patient otherwise is doing well hemodynamically. No respiratory difficulties. No chest pain. No fever. No chills. No other complaints otherwise. Objective - Vital Signs Vital signs: Vital Signs Temp 98.5 F 03/21/19 00:00 Pulse 96 03/21/19 06:00 Resp 19 03/21/19 04:00 BP 111/77 03/21/19 04:00 Pulse Ox 97 03/21/19 04:00 Intake & Output 03/20/19 03/21/19 03/21/19 18:59 06:59 18:59 Intake Total 550 770 250 Output Total 1255 650 Balance -705 120 250 Intake: IV 550 0 Sodium Chloride 0.9% 1, 550 0 000 ml @ 50 mls/hr IV . Q20H COUNT [facility]CLUDES THE [facility] Rx#:[id number] Oral 770 250 Output: Urine 1255 650 Other: Voiding Method Indwelling Catheter Indwelling Catheter - Exam The patient appeared well nourished and normally developed. Vital signs as documented. Head exam is unremarkable. No scleral icterus or corneal arcus noted. Neck is without jugular venous distension, thyromegaly, or carotid bruits. Carotid upstrokes are brisk bilaterally. Lungs are clear to auscultation and percussion. Cardiac exam reveals the PMI to be normally sized and situated. Rhythm is regular. First and second heart sounds normal. No murmurs, rubs or gallops. Abdominal exam reveals normal bowel sounds, no masses, no organomegaly and no aortic enlargement. Extremities are nonedematous and both femoral and pedal pulses are normal.Examination of the skin revealed no evidence of significant rashes, suspicious appearing nevi or other concerning lesions. Neurologically the patient is awake and alert and there is no cranial nerve deficits. Pupils are equal and reactive to light. No Babinski. No clonus. His motor weakness in the right lower extremity. She is able to move her right leg horizontally. She is unable to lift it up again sporadically. She has significant sensory changes. She gets feeling which is altered and the sensitivity functions are somewhat altered and the patient gets quite uncomfortable and she reports pain upon moving the right lower extremity. She is having depressive flex and the right knee. No Babinski. No clonus. Motor function is still weak although somewhat improved compared to yesterday. Note that the bulk and tone of the muscles in the right lower extremities within normal limits. She continues to have difficulties in the right lower extremity. Unable to raise against gravity. The motor function the other extremities are within normal limits with 5 out of 5 power. The puncture site in the right femoral area is dry clean and intact and there is no swelling or hematoma formation. - Labs CBC & Chem 7: 03/21/19 04:39 03/21/19 04:39 Labs: Abnormal Lab Results - Last 24 Hours (Table) 03/21/19 03/21/19 Range/Units 04:39 04:39 WBC 12.1 H (3.8-10.6) k/uL Hgb 10.4 L (11.4-16.0) gm/dL MCV 73.5 L (80.0-100.0) fL MCH 21.3 L (25.0-35.0) pg MCHC 29.0 L (31.0-37.0) g/dL RDW 16.2 H (11.5-15.5) % Carbon Dioxide 34 H (22-30) mmol/L Glucose 123 H (74-99) mg/dL Assessment and Plan Plan: #1. Acute onset of right leg motor weakness, decreased sensation, rule out acute CVA, CT brain and angiography CT of the brain showed no acute intracranial process, initial NIH score is 5, patient is having TPA infusion for her symptoms. Nevertheless, the presentation is more consistent with femoral nerve palsy probably from the manipulation that was done at time of cardiac catheterization. Motor function is somewhat.unchanged compared to yesterday and the patient continues to have pain in the right lower extremity specially upon passive movement of the right leg. She is depressed reflexes and altered sensory function in the right lower extremity. The patient has no Babinski. No clonus. Reflexes in the knees depressed. CAT scan of the lumbosacral spine was within normal limits. CAT scan of the abdomen and pelvis showed no evidence of any hematoma. No evidence of any pseudoaneurysm formation and arterial Doppler was also negative. The patient had a normal CAT scan of the brain. Normal CT angiogram of the brain. MRI is to follow. Unlikely to be related to a CVA. MRI of the brain showed some microvascular demyelinating changes and this obviously raises the possibility of demyelinating disorder/MS. I feel that there is a component of femoral nerve palsy. Cardiac catheterization. #2. Left chest pain and dyspnea related to acute exacerbation of systolic congestive heart failure, newly discovered. Echocardiogram showed a severely impaired left ventricular systolic function with EF of less than 20% #3. Hypertensive urgency on presentation, with mild cardiogenic pulmonary edema #4. History of hypertension, not treated, patient was previously on lisinopril #5. One and leak with elevated troponins, heart catheterization today showed normal coronary arteries #6. Iron deficiency anemia #7. Hypokalemia and hypomagnesemia, improved #8. Family history of heart disease #9. Lifetime nonsmoker, no history of chronic lung disease, no history of EtOH or drug abuse #10. Morbid obesity Plan Physical therapy for passive range of motion of the right lower extremity MRI noted. Continue with physical therapy Cardiac catheterization results were noted and the patient has normal coronaries Management of cardiomyopathy per cardiology Change Lasix to 40 mg once a day continue Coreg 6.25 mg by mouth twice a day Continue Lipitor 40 mg by mouth daily Continue Aldactone 50 mg by mouth daily Transfer this patient to telemetry unit. We'll continue to follow
[2019-03-21] MEDS ORDERED: FUROSEMIDE 40 MG TAB PO SCH (09:00)
[2019-03-21] MEDS: LISINOPRIL 20 MG TAB PO SCH (09:03)
[2019-03-21] MEDS: FUROSEMIDE 40 MG TAB PO SCH (09:03)
[2019-03-21] MEDS: SODIUM FERRIC GLUCONAT-SUCROSE 125 MG in SODIUM CHLORIDE 0.9% 100 ML IVPB SCH (09:03)
[2019-03-21] MEDS: SPIRONOLACTONE 25 MG TAB PO SCH (09:03)
[2019-03-21] MEDS: ASPIRIN 81 MG PO SCH (09:29)
[2019-03-21] MEDS: ATORVASTATIN 40 MG TAB PO SCH (09:29)
[2019-03-21] MEDS: ATORVASTATIN 20 MG TAB PO SCH (09:38)
--- NOTE | 2019-03-21 09:57 | CDI ---
Documentation Clarification Form Date: 03/21/2019 09:31:36 AM From: Jayne GilliamCrumBARON boggs, CCDS Admit Date: 03/14/2019 09:22:00 PM Patient Name: Barbara Heredia Visit Number: [id number] Discharge Date: ATTENTION: The Clinical Documentation Specialists (CDI) and [facility] Coding Staff appreciate your assistance in clarifying documentation. Please respond to the clarification below the line at the bottom and electronically sign. The CDI & [facility] Coding staff will review the response and follow-up if needed. Please note: Queries are made part of the Legal Health Record. If you have any questions, please contact the author of this message via ITS. Dr. Jose Maria Singh: Patient was admitted with acute on chronic systolic heart failure. On 03/19, [facility] a left heart catheterization. Per the [facility] report the patient had no complications during the procedure. Per the 03/19 internal medicine progress note: "Per [facility] nurse Jennie, patient received fentanyl and Versed for the procedure and over the procedure became unresponsive. Patient was given flumazenil and Narcan and after few minutes she started responding and she was taken to the CAT scan." Per a 03/19 nursing note: patient complained of SOB & hyperventilating at the end of the procedure, O2 applied, 5L, then complained of difficulty moving & had difficulty following commands, Code stroke initiated in ESU. Per the 03/20 Cardiology progress note: "Right lower extremity weakness after heart cath, status post TPA, MRI showing no evidence of acute ischemia, neurology following, believes it's possibly related to femoral nerve injury." Patients Admitting Diagnosis: Presented with chest pain, SOB, lower extremity swelling & orthopnea, patient is morbidly obese, BMI 35.5. Post-Operative Diagnosis per [facility] report: Normal coronary arteries. Dilated left ventricle with severely impaired LV function. Ejection fraction about 20- 25%. Procedure performed: Left heart catheterization with left ventriculography. History/Risk Factors: Hypertension, Severe cardiomyopathy, EF 20 carlene unknown, noncompliance with medical therapy. Clinical Indicators: Admit on 03/14 & diagnosed with new onset acute systolic CHF exacerbation, Hypertensive emergency, hypokalemia & possible NSTEMI with elevated troponins. Patient went to the [facility] on 03/19. Post cath code stroke was called in [facility] & patient was transferred to ICU, TPA administered. Treatment: 03/14: IV Ativan, IV fluid bolus, IV Kcl, IV Lasix, Nitro sl, IV Heparing drip, IV Dilaudid, IV Reglan. 03/19 post heart cath: TPA administered, IV Morphine sulfate, IV Mag Sulfate & po Kcl. In order to accurately reflect this patients severity of illness, please clarify if the post-operative diagnosis is: An expected post-procedural or post-surgical condition An unexpected post-procedural or post-surgical condition related to surgical care (a complication of care) An unexpected post-procedural or post-surgical condition, related to the patients underlying medical co-morbidities Other, please specify Unable to determine (Last Revision: May 2018) Unclear if this is a functional or organic postoperative complication We do not have enough data for this at this time Need to good neurologist to do a thorough examination and then perhaps some nerve conduction studies to prove the point I cannot on see a question but a neurologist can MTDD
[2019-03-21 11:47] LABS: Ferritin 19.9 ng/mL (10.0-291.0)
--- NOTE | 2019-03-21 12:26 | P.PN ---
Subjective Progress Note Date: 03/21/19 Seen and evaluated today with Dr. Mathews. Patient is lying in bed on her side, when asked to roll over was able to move that right lower extremity without any assistance. She states still has some discomfort in the right groin and thigh, however overall motor sensory has improved. Objective - Vital Signs Vital signs: Vital Signs Temp 98.2 F 03/21/19 08:00 Pulse 104 H 03/21/19 08:00 Resp 20 03/21/19 08:00 BP 123/71 03/21/19 08:00 Pulse Ox 96 03/21/19 08:00 Intake & Output 03/20/19 03/21/19 03/21/19 18:59 06:59 18:59 Intake Total 550 770 250 Output Total 1255 650 Balance -705 120 250 Intake: IV 550 0 Sodium Chloride 0.9% 1, 550 0 000 ml @ 50 mls/hr IV . Q20H [facility] Rx#:[id number] Oral 770 250 Output: Urine 1255 650 Other: Voiding Method Indwelling Catheter Indwelling Catheter - Exam General appearance: The patient is alert, oriented, in no acute distress. HET: Head is normocephalic and atraumatic. Pupils are equal and reactive. Oropharynx is clear without lesions. Heart: S1 S2. Regular rate and rhythm. Lungs: No crackles or wheezes are heard. Extremities: Normal skin color and turgor. No cyanosis, rash, ulceration, clubbing, or edema. Radial and pedal pulses are 2/4 bilaterally. Neurological: Motor sensory intact bilateral upper and lower extremities, facial symmetry. Improved strength and movement in right lower extremity. - Labs CBC & Chem 7: 03/21/19 04:39 03/21/19 04:39 Labs: Abnormal Lab Results - Last 24 Hours (Table) 03/21/19 03/21/19 Range/Units 04:39 04:39 WBC 12.1 H (3.8-10.6) k/uL Hgb 10.4 L (11.4-16.0) gm/dL MCV 73.5 L (80.0-100.0) fL MCH 21.3 L (25.0-35.0) pg MCHC 29.0 L (31.0-37.0) g/dL RDW 16.2 H (11.5-15.5) % Carbon Dioxide 34 H (22-30) mmol/L Glucose 123 H (74-99) mg/dL Assessment and Plan Assessment: #1 right lower extremity weakness #2 recent right heart catheterization #3 recent TPA for Code Stroke #4 medical noncompliance #CHF #6 hypertension Plan: Reviewed MRI report which shows no signs of acute ischemia. Dr. Mathews discussed with patient results of MRI, continue to encourage patient to move lower extremities and increase activity as tolerated. There is no indication for any vascular surgical interventions, as that it is more likely a consequence of local femoral nerve that was affected. We will sign off at this time. Please do not hesitate to contact us needed in the future. The above dictated assessment and findings were discussed with Dr. Mathews. The impression and plan of care have been directed as dictated.
--- NOTE | 2019-03-21 16:30 | P.CONS ---
History of Present Illness - Chief Complaint Gait disturbance, right leg weakness - History of Present Illness I had the opportunity to see patient for inpatient rehab consultation with regard to gait disturbance. Patient admitted to [facility] March 14 with chest pain, shortness of breath and one episode nausea and emesis. Diagnoses CHF. Patient has history of noncompliance with blood pressure management. We seen by cardiology by Drs. Al and did undergo [employer], cardiac angiograms within normal limits. Postoperative complication of right leg weakness. Workup includes normal CTA cerebral arteries, lower extremity Doppler, CT of sacrum, lumbar CT. Brain MRI with nonspecific white matter change and radiologist suggest possibility of MS. Chest x-ray with left pleural effusion and atelectasis. Computed tomography scan of abdomen and pelvis negative for right groin pseudoaneurysm and otherwise normal. Did started therapies. PT reports independent with bed mobility transfers and supervision for gait 12 feet with roller walker. OT reports supervision for all basic self- care tasks. Speech therapy prescribed. Previous functional history as elicited from patient corroborative by friend: 43-year-old right-handed white female who is single lives in [facility]. Works full-time. Describes independent with cooking, driving, laundry, standing shower and gait without device. Does not have PMD. Eyes tobacco or alcohol. Family history both parents as well as multiple other family members with cardiac disease and [place]. Review of Systems Review of systems: ENT: Denies sneezes or discharge. Eyes: Denies discharge or photophobia. Cardiac: Denies chest pain or palpitation. Pulmonary: Denies cough or shortness of breath. Breast: Denies discharge or lumps. Gastrointestinal: Denies nausea, emesis, constipation, diarrhea. Genitourinary: Denies discharge or frequency. Musculoskeletal: Denies muscle or bone aches. Neurologic: Right leg weakness. Endocrine: Denies shakes or sweats. Oncology: Denies cancers. Dermatologic: Denies rash, itching, pruritus. ALLERGY/immunology: Denies sneezes, rashes. Past Medical History Past Medical History: Hypertension History of Any Multi-Drug Resistant Organisms: None Reported Past Surgical History: No Surgical Hx Reported Past Psychological History: No Psychological Hx Reported Smoking Status: Never smoker Past Alcohol Use History: None Reported Past Drug Use History: None Reported - Past Family History Father Family Medical History: Coronary Artery Disease (CAD) Medications and Allergies Home Medications Medication Instructions Recorded Confirmed Type Ibuprofen/Diphenhydramine HCl 2 cap PO HS PRN 03/14/19 03/14/19 History [Advil Pm Liqui-Gels] Allergies Allergy/AdvReac Type Severity Reaction Status Date / Time No Known Allergies Allergy Verified 03/14/19 22:06 Physical Exam Vitals: Vital Signs Temp Pulse Pulse Resp BP BP Pulse Ox 03/21/19 14:00 104 H 26 H 03/21/19 13:23 98.4 F 100 20 115/71 96 03/21/19 10:00 103 H 03/21/19 08:00 98.2 F 104 H 20 123/71 96 03/21/19 06:00 96 03/21/19 04:00 87 19 111/77 97 03/21/19 00:00 98.5 F 94 13 114/80 96 03/20/19 22:00 96 03/20/19 21:00 15 03/20/19 20:00 98.5 F 99 19 107/74 95 03/20/19 18:30 109 H 15 147/94 03/20/19 18:00 118 H 18 136/98 95 03/20/19 17:30 110 H 14 129/89 95 03/20/19 17:10 98 03/20/19 17:00 109 H 16 105/63 94 L 03/20/19 16:30 108 H 18 99/59 97 Intake and Output 03/21/19 03/21/19 03/21/19 06:59 14:59 22:59 Intake Total 470 350 Output Total 0 0 Balance 470 350 Intake: Intake, IV Titration 100 Amount Sodium Ferric Gluconat- 100 Sucrose 125 mg In Sodium Chloride 0.9% 100 ml @ 100 mls/hr IVPB DAILY [facility] Rx#:[id number] Oral 470 250 Output: Urine 0 0 Other: Voiding Method Indwelling Catheter Toilet Toilet Bedside Commode Bedside Commode # Voids 0 0 Skin: Good color, texture, turgor. General: Overweight build and comfortable appearance. Head: Normocephalic, atraumatic. Eyes: Symmetric. Pupils equal round. Ears: Symmetric. Hearing within normal limits. Mouth: Clear. Neck: Supple. Carotid without bruit. Cardiac: Regular rate and rhythm. Lungs: Clear anteriorly and posteriorly. Abdomen: Soft active nontender. Extremities: Normal tone. Neurological: Mental status: Alert, cooperative, pleasant. Cranial nerves: Symmetric facial tone and trapezius. Motor: Normal strength and isolation both arms and left leg. Right leg poor. Sensation: Intact throughout except decreased right leg. DTRs: Symmetric and equal throughout. Mobility: Did not attempt to sit or stand is sitting on commode. Results CBC & Chem 7: 03/21/19 04:39 03/21/19 04:39 Labs: Abnormal Lab Results - Last 24 Hours (Table) 03/21/19 03/21/19 Range/Units 04:39 04:39 WBC 12.1 H (3.8-10.6) k/uL Hgb 10.4 L (11.4-16.0) gm/dL MCV 73.5 L (80.0-100.0) fL MCH 21.3 L (25.0-35.0) pg MCHC 29.0 L (31.0-37.0) g/dL RDW 16.2 H (11.5-15.5) % Carbon Dioxide 34 H (22-30) mmol/L Glucose 123 H (74-99) mg/dL Assessment and Plan (1) Acute non-ST elevation myocardial infarction (NSTEMI) Current Visit: Yes Status: Acute Code(s): I21.4 - NON-ST ELEVATION (NSTEMI) MYOCARDIAL INFARCTION SNOMED Code(s): 726823655 (2) Congestive heart failure Current Visit: Yes Status: Acute Code(s): I50.9 - HEART FAILURE, UNSPECIFIED SNOMED Code(s): 56046171 Plan: Impression: 1. Gait disturbance with new onset right leg weakness. 3. Non-STEMI 4. Continue NSAID CHF. Comments and plan: At this time PT and OT are ongoing but patient described as supervision for functional mobility and all basic self-care tasks. At this time would not be approved by insurance because she is already operating a 2 level. May suggest home therapy currently. Patient quite frustrated as its use this is a significant change for operating independently.
[2019-03-21] MEDS: POTASSIUM CHLORIDE ER 10 MEQ TAB.ER.PRT PO SCH (17:36)
--- NOTE | 2019-03-21 19:07 | P.PN ---
Subjective Progress Note Date: 03/21/19 Principal diagnosis: Right lower extremity weakness Patient was seen and examined. Patient appears visibly upset and tearful. Patient complains of right lower extremity paralysis has been ongoing since her cardiac catheterization. She reports full sensation and states that she has to use her hips and her upper extremities along with her torso in order to move her right leg. She denies any chest pain, shortness of breath or palpitations. No nausea or vomiting. No fever or chills. Objective - Vital Signs Vital signs: Vital Signs Temp 98.4 F 03/21/19 17:35 Pulse 118 H 03/21/19 17:35 Resp 20 03/21/19 17:35 BP 126/112 03/21/19 17:35 Pulse Ox 95 03/21/19 17:35 Intake & Output 03/20/19 03/21/19 03/21/19 18:59 06:59 18:59 Intake Total 550 770 350 Output Total 1255 650 0 Balance -705 120 350 Intake: IV 550 0 Sodium Chloride 0.9% 1, 550 0 000 ml @ 50 mls/hr IV . Q20H [facility] Rx#:[id number] Intake, IV Titration 100 Amount Sodium Ferric Gluconat- 100 Sucrose 125 mg In Sodium Chloride 0.9% 100 ml @ 100 mls/hr IVPB DAILY [facility] Rx#:[id number] Oral 770 250 Output: Urine 1255 650 0 Other: Voiding Method Indwelling Catheter Indwelling Catheter Toilet Bedside Commode # Voids 0 - Exam General: [non toxic], [tearful], [appears at stated age] Derm: [warm], [dry] Head: [atraumatic], [normocephalic], [symmetric] Eyes: [EOMI], [no lid lag], [anicteric sclera] Mouth: [no lip lesion], [mucus membranes moist] Cardiovascular: [S1S2 reg], [no murmur] Lungs: [CTA bilateral], [no rhonchi, no rales] , [no accessory muscle use] Abdominal: [soft], [ nontender to palpation], [no guarding], [no appreciable organomegaly] Ext: [no gross muscle atrophy], [no edema], [no contractures] Neuro: [Strength 2/5 in the right lower extremity. Able to wiggle toes. Weak plantarflexion when compared to the left lower extremity. Unable to hold right lower extremity against gravity. Sensation intact to touch in the right lower extremity. No hematoma in the right groin.] Psych: [Alert], [oriented], [appropriate affect] - Labs CBC & Chem 7: 03/21/19 04:39 03/21/19 04:39 Labs: Abnormal Lab Results - Last 24 Hours (Table) 03/21/19 03/21/19 Range/Units 04:39 04:39 WBC 12.1 H (3.8-10.6) k/uL Hgb 10.4 L (11.4-16.0) gm/dL MCV 73.5 L (80.0-100.0) fL MCH 21.3 L (25.0-35.0) pg MCHC 29.0 L (31.0-37.0) g/dL RDW 16.2 H (11.5-15.5) % Carbon Dioxide 34 H (22-30) mmol/L Glucose 123 H (74-99) mg/dL Assessment and Plan Assessment: Right lower extremity weakness Acute exacerbation of systolic CHF EF 20%, new diagnosis Elevated troponin with hypokinetic wall motion Microcytic anemia Hypertension Resolved: Hypertensive urgency, hypokalemia Patient evaluated for stroke. Brain CT No acute process. CTA head and neck shows no significant abnormality. Ultrasound of the right lower extremity shows no pseudoaneurysm of the right femoral artery, no evidence of hematoma, some thickening of the anterior wall of the femoral vein. CT sacrum negative. CT lumbar spine negative. CT abdomen and pelvis negative. Lyme screen negative. Neurology consulted, recommends EMG and PT/OT. Discussed with Jaja, EMG not performed at [facility]. Family requested transfer to [facility], will address in the morning. PMR refusing patient for inpatient rehab. We'll follow PT and OT recommendations. EF less than 20%, grade 3 diastolic dysfunction. As per cardiology note, cardiac cath non-ischemic. Plans: Lasix by mouth. Continue Coreg. Continue lisinopril. Continue Aldactone. Telemetry monitoring. Follow cardiology re commendations. Troponin 0.081, 0.1, 0.075. Unknown significance. As per cardiology note, cardiac cath nonischemic. Plans: Nothing further to do. Hemoglobin 10.4, MCV 73.5. Iron studies show iron deficiency. Plans: IV iron for 3 days. Transfuse if hemoglobin less than 7. BP 126/112. Plans: Continue lisinopril and Coreg. Monitor vitals, adjust medications as necessary. [Patient admitted for CHF exacerbation, improved. Had right lower extremity weakness after Cardiac catheterization, CVA ruled out, workup so far negative, Neurology recommends outpatient EMG. I will call [place] tomorrow regarding patient request to be transferred. account services coordinator following for outpatient resources.]
[2019-03-21] MEDS: AMOXIC-POT CLAV 875-125MG 1 EACH TAB PO SCH (19:50)
[2019-03-22] MEDS: ALPRAZolam 0.25 MG TAB PO PRN ×3 (00:18→20:24)
[2019-03-22] MEDS ORDERED: traMADol 50 MG TAB PO STA (03:24)
[2019-03-22] MEDS: HYDROcodone/APAP 5-325MG 1 EACH TAB PO PRN ×2 (04:19→12:14)
--- NOTE | 2019-03-22 08:48 | P.PN ---
Subjective Progress Note Date: 03/22/19 Principal diagnosis: Acute onset of right leg motor weakness, decreased sensation, rule out acute CVA, CT brain and angiography CT of the brain showed no acute intracranial process, initial NIH score is 5, patient is having TPA infusion for her symptoms. 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 Patient has been having constant left-sided chest pain and dyspnea for a month prior to presentation. Patient is quite hypertensive on presentation, with a blood pressure of 184/116, dyspneic, hypoxic, and tachycardic in sinus mechanism with nonspecific T-wave abnormality. Chest x-ray shows left pleural effusion, and mild cardiogenic pulmonary edema. D-dimer was elevated at 1.41, CTA chest was negative for any evidence of pulmonary embolism, but did show cardiogenic pulmonary edema with bilateral pleural effusions. Troponins are positive at 0.081, 0.100, and 0.075. Echocardiogram shows severely impaired left ventricular systolic function, with a EF of less than 20%, moderate to severely enlarged right ventricle, markedly dilated left atrium,, moderate mitral regurgitation, mild tricuspid regurgitation, mild pulmonary hypertension with right-sided pressures of 38.7 mmHg, and a small generalized pericardial effusion. Patient was placed on heparin and nitroglycerin, she was given Lasix, her breathing had improved, blood pressure is better controlled, today on a 03/11/2019 patient had a heart catheterization, was found to have normal coronary arteries. Following the procedure in the [employer] patient developed symptoms of right leg numbness, and difficulty moving right lower extremity. Code stroke was called, and her NIH score was 5. Brain CT and angiography CT of the brain showed no significant abnormality. Patient was evaluated by interventional neurologist, and TPA infusion was recommended. Currently receiving the patient in the intensive care unit, she is awake and alert, oriented 3, no visual changes, no facial weakness, no speech abnormalit y, patient normal motor and sensory function in the bilateral upper extremities, still has difficulty lifting right leg off the bed and still has decreased sensation in her right leg. Vital signs are stable, breathing stable, she is on 2 L of oxygen with a pulse ox of 95-99%, blood pressures 125/98, lung sounds are clear. Neurology consultation is pending. We were consulted for ICU management On today's evaluation of 03/21/2019 the patient continues to have profound weakness in the right lower extremity. Unable to lift it up against gravity. She is having also pain upon removing the right lower extremity passively. She feels a lot of discomfort and crampy sensation whenever her leg is moved. She is able to wiggle her toes. No new onset neurologic deficits at all. In terms of further workup, the patient had an MRI of the brain that showed some abnormal findings which included nonspecific white matter demyelination which obviously also raised the concern for MS. The MRI showed periventricular white matter changes along with subcortical white matter changes approximately 30-40 lesions were present largest in the right frontal lobe measuring 11 mm and also in the right lateral ventricle and the largest on the left is around 9 mm in size. The patient otherwise is doing well hemodynamically. No respiratory difficulties. No chest pain. No fever. No chills. No other complaints otherwise. On 03/22/2019 patient seen in follow-up in the intensive care unit, she has been awaiting a bed on the stepdown floor, denies any shortness of breath, denies any chest pain, or pulse ox is 97%, blood pressure is 112/94, sinus tachycardia on the monitor with a rate of 104 BPM, lung sounds are clear to auscultation, no new chest x-ray today, today's labs have been reviewed, showing blood blood cell count of 12.1, hemoglobin of 10.4, serum sodium is 137, potassium is 4.0, chlor josé manuel is 98, BUN is 13, creatinine is 0.80. Patient is anxious about her recovery in terms of recovering strength in the right lower extremity, the sensation in the right leg has improved, however there still remains a weakness and patient has a hard time lifting the leg off the bed, and she still experiencing pain down the left hip. Neurology is following, and it is thought that patient likely having a femoral nerve palsy. She was evaluated by [facility], and she was found to be not a candidate for inpatient rehabilitation, patient has been up out of bed with assistance, using the bedside commode, having difficulty ambulating and bearing weight on the right lower extremity. In addition patient is having increased swelling in her right cheek, with the some mild induration on her right jaw. She has multiple teeth there are in bad condition. Objective - Vital Signs Vital signs: Vital Signs Temp 98.7 F 03/21/19 23:00 Pulse 98 03/21/19 23:08 Resp 18 03/21/19 23:08 BP 112/94 03/21/19 23:00 Pulse Ox 97 03/21/19 23:00 Intake & Output 03/21/19 03/22/19 03/22/19 18:59 06:59 18:59 Intake Total 350 800 Output Total 0 950 Balance 350 -150 Intake: Intake, IV Titration 100 Amount Sodium Ferric Gluconat- 100 Sucrose 125 mg In Sodium Chloride 0.9% 100 ml @ 100 mls/hr IVPB DAILY [facility] Rx#:[id number] Oral 250 800 Output: Urine 0 950 Other: Voiding Method Toilet Toilet Bedside Commode Bedside Commode # Voids 0 1 # Bowel Movements 1 - Exam The patient appeared well nourished and normally developed. Vital signs as documented. Head exam is unremarkable. No scleral icterus or corneal arcus noted. Mild swelling involving the right cheek, and some mild induration but no redness or warmth involving the right jaw area. Neck is without jugular venous distension, thyromegaly, or carotid bruits. Carotid upstrokes are brisk bilaterally. Lungs are clear to auscultation and percussion. Cardiac exam reveals the PMI to be normally sized and situated. Rhythm is regular. First and second heart sounds normal. No murmurs, rubs or gallops. Abdominal exam reveals normal bowel sounds, no masses, no organomegaly and no aortic enlargement. Extremities are nonedematous and both femoral and pedal pulses are normal.Examination of the skin revealed no evidence of significant rashes, suspicious appearing nevi or other concerning lesions. Neurologically the patient is awake and alert and there is no cranial nerve deficits. Pupils are equal and reactive to light. No Babinski. No clonus. His motor weakness in the right lower extremity. She is able to move her right leg horizontally. She is unable to lift it up again sporadically. She has significant sensory changes. She gets feeling which is altered and the sensitivity functions are somewhat altered and the patient gets quite uncomfortable and she reports pain upon moving the right lower extremity. She is having depressive flex and the right knee. No Babinski. No clonus. Motor function is still weak although somewhat improved compared to yesterday. Note that the bulk and tone of the muscles in the right lower extremities within normal limits. She continues to have difficulties in the right lower extremity. Unable to raise against gravity. The motor function the other extremities are within normal limits with 5 out of 5 power. The puncture site in the right femoral area is dry clean and intact and there is no swelling or hematoma formation. - Labs CBC & Chem 7: 03/21/19 04:39 03/21/19 04:39 Assessment and Plan Plan: Assessment: #1. Acute onset of right leg motor weakness, decreased sensation, rule out acute CVA, CT brain and angiography CT of the brain showed no acute intracranial process, initial NIH score is 5, patient is having TPA infusion for her symptoms. Nevertheless, the presentation is more consistent with femoral nerve palsy probably from the manipulation that was done at time of cardiac catheterization. Motor function is somewhat.unchanged compared to yesterday and the patient continues to have pain in the right lower extremity specially upon passive movement of the right leg. She is depressed reflexes and altered sensory function in the right lower extremity. The patient has no Babinski. No clonus. Reflexes in the knees depressed. CAT scan of the lumbosacral spine was within normal limits. CAT scan of the abdomen and pelvis showed no evidence of any hematoma. No evidence of any pseudoaneurysm formation and arterial Doppler was also negative. The patient had a normal CAT scan of the brain. Normal CT angiogram of the brain. MRI is to follow. Unlikely to be related to a CVA. MRI of the brain showed some microvascular demyelinating changes and this obviously raises the possibility of demyelinating disorder/MS. I feel that there is a component of femoral nerve palsy. Cardiac catheterization. #2. Left chest pain and dyspnea related to acute exacerbation of systolic congestive heart failure, newly discovered. Echocardiogram showed a severely impaired left ventricular systolic function with EF of less than 20% #3. Hypertensive urgency on presentation, with mild cardiogenic pulmonary edema #4. History of hypertension, not treated, patient was previously on lisinopril #5. One and leak with elevated troponins, heart catheterization today showed normal coronary arteries #6. Iron deficiency anemia #7. Hypokalemia and hypomagnesemia, improved #8. Family history of heart disease #9. Lifetime nonsmoker, no history of chronic lung disease, no history of EtOH or drug abuse #10. Morbid obesity #11. Swelling involving the right cheek, possibly from a tooth abscess Plan: Continue current medical treatment, physical therapy to mobilize the patient, hemodynamically patient is stable, rest her status is stable, patient is on room air, no compressive shortness of breath, lung sounds are clear to auscultation, continue with oral dose Lasix. Continue with antibiotics, patient is having issues with right lower extremity weakness, but this sensation has improved. Will await further recommendations from neurology. Continue supportive treatment, patient taking about obtaining a second opinion possibly at a tertiary care facility, she has concerns for recovery and being able to return to work in view of persistent right leg weakness. We will defer to primary care service in terms of a possible tooth abscess and swelling involving the right cheek, patient is on empiric antibiotics in the form of Augmentin. No fever or chills, no redness, involving the right cheek. From pulmonary/conical care standpoint patient is stable, and can be transferred out of the intensive care unit to selective care today. I performed a history & physical examination of the patient and discussed their management with my nurse practitioner, Lindsey Sheets. I reviewed the nurse practitioner's note and agree with the documented findings and plan of care. Lung sounds are positive for clear breath sounds. The findings and the impression was discussed with the patient. I attest to the documentation by the nurse practitioner. Time with Patient: Less than 30
[2019-03-22] MEDS: FUROSEMIDE 40 MG TAB PO SCH (09:07)
[2019-03-22] MEDS: ATORVASTATIN 20 MG TAB PO SCH (09:07)
[2019-03-22] MEDS: HEPARIN SODIUM,PORCINE 5,000 UNIT/ML 1 ML VIAL SQ SCH ×3 (09:07→22:27)
[2019-03-22] MEDS: AMOXIC-POT CLAV 875-125MG 1 EACH TAB PO SCH ×2 (09:07→20:22)
[2019-03-22] MEDS: SPIRONOLACTONE 25 MG TAB PO SCH (09:07)
[2019-03-22] MEDS: LISINOPRIL 20 MG TAB PO SCH (09:07)
[2019-03-22] MEDS: CARVEDILOL 6.25 MG TAB PO SCH ×2 (09:07→17:37)
[2019-03-22 09:17] LABS: ALT 14 U/L (4-34); AST 19 U/L (14-36); African American GFR (CKD) >90 (>60 ml/min/1.73 sqM); Albumin 3.9 g/dL (3.5-5.0); Alkaline Phosphatase 49 U/L (38-126); Anion Gap 12 mmol/L; Blood Urea Nitrogen 13 mg/dL (7-17); Calcium 9.2 mg/dL (8.4-10.2); Carbon Dioxide 26 mmol/L (22-30); Chloride 104 mmol/L (98-107); Glucose 134 mg/dL (74-99); Non-African American GFR(CKD) >90 (>60 ml/min/1.73 sqM); Potassium 4.6 mmol/L (3.5-5.1); Sodium 142 mmol/L (137-145); Total Bilirubin 0.9 mg/dL (0.2-1.3); Total Protein 6.9 g/dL (6.3-8.2)
[2019-03-22 09:37] LABS: Anisocytosis Slight; Basophils # (A) 0.3 k/uL (0-0.2); Basophils % (A) 2 %; Eosinophils # (A) 0.3 k/uL (0-0.7); Eosinophils % (A) 2 %; HCT 39.1 % (34.0-46.0); HGB 11.4 gm/dL (11.4-16.0); Hypochromasia Marked; Lymphocytes # (A) 2.3 k/uL (1.0-4.8); Lymphocytes % (A) 17 %; MCH 21.3 pg (25.0-35.0); MCHC 29.1 g/dL (31.0-37.0); Mean Platelet Volume 8.7; Microcytosis Moderate; Monocytes # (A) 0.9 k/uL (0-1.0); Monocytes % (A) 7 %; Neutrophils # (A) 9.9 k/uL (1.3-7.7); Neutrophils % (A) 71 %; Platelet Count 349 k/uL (150-450); RBC 5.36 m/uL (3.80-5.40); RDW 16.5 % (11.5-15.5)
[2019-03-22 10:23] VITALS: BMI 35.4
[2019-03-22] MEDS: SODIUM FERRIC GLUCONAT-SUCROSE 125 MG in SODIUM CHLORIDE 0.9% 100 ML IVPB SCH (10:37)
--- NOTE | 2019-03-22 11:21 | P.PN ---
Subjective This is Alexandra Alejandre PA-C dictating a progress note on this patient The patient was interviewed and examined by me as well as by Dr. Singh Case discussed with Dr. Singh and he agrees with the plan of care HPI/interval history Patient is a 43-year-old female with a past medical history of hypertension who presented with complaints of shortness of breath and was found to have severely reduced systolic function with an EF of less than 20%. she underwent a coronary angiogram which did not show any occlusive coronary artery disease. Patient seen and examined sitting in the chair. States her leg has not really improved. She has been working with therapy. She expresses a lot of concern about her symptoms. No chest pain. Breathing has improved. EXAMINATION Temperature 98.4F, pulse in the 90s, respirations 20, blood pressure in the 120s/70s, oxygen saturation 96% on room air Patient seen and examined sitting in the chair, in no acute distress Lungs are clear to auscultation bilaterally Heart is regular, no audible murmurs Trace lower extremity edema REVIEW OF LABS, ECG WBC 12.1, hemoglobin 10.4, platelets 288, potassium 4.0, BUN 13, creatinine 0.8 IMPRESSION / ASSESSMENT: Symptoms of shortness of breath secondary to acute systolic congestive heart failure, symptoms improving Severe cardiomyopathy, EF less than 20%, etiology unknown Elevated troponin secondary to above Hypertension, controlled Coronary angiogram showing no occlusive coronary artery disease new onset right lower extremity weakness, neurology workup ongoing PLAN: Continue Coreg 6.25 twice a day, lisinopril 20 mg daily, spironolactone 50 mg daily, and Lasix 40 mg PO Reduce Lipitor to 20 mg daily Discontinue aspirin Monitor telemetry for arrhythmias Awaiting neurology input on right lower extremity weakness and brain MRI results She may have had a cardiac work up in [place] she is unsure of what testing was done there, we have requested the records Objective - Vital Signs Vital signs: Vital Signs Temp 98.4 F 03/21/19 13:23 Pulse 104 H 03/21/19 14:00 Resp 26 H 03/21/19 14:00 BP 115/71 03/21/19 13:23 Pulse Ox 96 03/21/19 13:23 Intake & Output 03/20/19 03/21/19 03/21/19 18:59 06:59 18:59 Intake Total 550 770 350 Output Total 1255 650 0 Balance -705 120 350 Intake: IV 550 0 Sodium Chloride 0.9% 1, 550 0 000 ml @ 50 mls/hr IV . Q20H [facility] Rx#:[id number] Intake, IV Titration 100 Amount Sodium Ferric Gluconat- 100 Sucrose 125 mg In Sodium Chloride 0.9% 100 ml @ 100 mls/hr IVPB DAILY [facility] Rx#:[id number] Oral 770 250 Output: Urine 1255 650 0 Other: Voiding Method Indwelling Catheter Indwelling Catheter Toilet Bedside Commode # Voids 0 - Labs CBC & Chem 7: 03/22/19 08:35 03/22/19 08:35 Labs: Abnormal Lab Results - Last 24 Hours (Table) 03/21/19 03/21/19 Range/Units 04:39 04:39 WBC 12.1 H (3.8-10.6) k/uL Hgb 10.4 L (11.4-16.0) gm/dL MCV 73.5 L (80.0-100.0) fL MCH 21.3 L (25.0-35.0) pg MCHC 29.0 L (31.0-37.0) g/dL RDW 16.2 H (11.5-15.5) % Carbon Dioxide 34 H (22-30) mmol/L Glucose 123 H (74-99) mg/dL
--- NOTE | 2019-03-22 11:40 | P.PN ---
Subjective 43-year-old female who initially presented with shortness of breath and heart failure symptoms. She has moved from [place] in 2015. When I first examined her she was experiencing heart failure symptoms and was in medical treatment. She stated that she had had a very detailed workup in [place] and was advised metoprolol and lisinopril. She has been noncompliant with her medications as well as noncompliant with any kind of medical follow-up since 2014. She was treated medically and her overall condition improved and heart failure medications were instituted Subsequently we discussed the importance of coronary angiography to determine the cause of her cardio myopathy. She has severe LV dysfunction which appears chronic. Borderline abnormal troponins with current myopathy She underwent coronary angiography via the right femoral artery without and once she was told that her coronary arteries were completely normal she started ex hibiting neurologic symptoms. Please see the nursing notes and the neurology notes At this time she is chest pain-free she looks very comfortable but she states that she is unable to move her right lower extremity Review of data shows no significant abnormality on the CT angiogram CT of the brain did not show any acute intracranial process specifically no hemorrhage There is no evidence for pseudoaneurysm of the right femoral artery and no hematoma. Thickening of the anterior wall of the femoral artery post cath and achieving hemostasis is an expected finding Negative computed tomography scan of the lumbar spine Negative CT of the sacrum Negative computed tomography scan of the abdomen and pelvis without any evidence for retroperitoneal hemorrhage Nonspecific white matter demyelination noted on brain MRI did no evidence for acute ischemia Blood pressure 112/90 for me was mercury pulse rate in the 90s, afebrile Breath sounds are clear no rhonchi no crackles Heart sounds S1-S2 normal She looks very comfortable but she states that she is unable to move her legs and she lifts her leg, right side with her hand to move it She is not in any pain Suggest Maximal medical treatment for 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 Heparin for DVT prophylaxis Lisinopril 20 mg twice daily Spironolactone 50 mrem daily This lady received TPA but finally there was no evidence for any acute neurologic event on brain MRI, no telltale signs of infarction A follow-up brain MRI would be confirmatory Discussed with the primary attending and I would suggest neurology input regarding nerve conduction studies of RLE This would help us determine if the symptoms are organic or functional A careful assessment of the lower extremity motor function based upon neuromuscular units would shed light on why she is unable to move the entire leg The question for neurology would be whether selective injury to the femoral nerve can cause lack of movement in the entire leg and muscle groups that are NOT innervated by the femoral nerve Objective - Vital Signs Vital signs: Vital Signs Temp 98.7 F 03/21/19 23:00 Pulse 98 03/21/19 23:08 Resp 18 03/21/19 23:08 BP 112/94 03/21/19 23:00 Pulse Ox 97 03/21/19 23:00 Intake & Output 03/21/19 03/22/19 03/22/19 18:59 06:59 18:59 Intake Total 350 800 Output Total 0 950 Balance 350 -150 Weight 109 kg Intake: Intake, IV Titration 100 Amount Sodium Ferric Gluconat- 100 Sucrose 125 mg In Sodium Chloride 0.9% 100 ml @ 100 mls/hr IVPB DAILY [facility] Rx#:[id number] Oral 250 800 Output: Urine 0 950 Other: Voiding Method Toilet Toilet Toilet Bedside Commode Bedside Commode Bedside Commode # Voids 0 1 # Bowel Movements 1 - Labs CBC & Chem 7: 03/22/19 08:35 03/22/19 08:35 Labs: Abnormal Lab Results - Last 24 Hours (Table) 03/22/19 03/22/19 Range/Units 08:35 08:35 WBC 14.0 H (3.8-10.6) k/uL MCV 73.0 L (80.0-100.0) fL MCH 21.3 L (25.0-35.0) pg MCHC 29.1 L (31.0-37.0) g/dL RDW 16.5 H (11.5-15.5) % Neutrophils # 9.9 H (1.3-7.7) k/uL Basophils # 0.3 H (0-0.2) k/uL Glucose 134 H (74-99) mg/dL
--- NOTE | 2019-03-22 14:24 | P.PN ---
Subjective Progress Note Date: 03/22/19 Principal diagnosis: Right lower extremity weakness Patient was seen and examined. Patient continues to report right lower extremity weakness that has not improved since yesterday. She reports cramping sensation in her right lower extremity and states that she needs to lift her leg with her sock in order to place it on the bed. She denies any sensory deficits. She denies any chest pain, shortness of breath or palpitations. No nausea or vomiting. No fever or chills. Objective - Vital Signs Vital signs: Vital Signs Temp 98.3 F 03/22/19 12:19 Pulse 105 H 03/22/19 12:19 Resp 16 03/22/19 12:19 BP 141/85 03/22/19 12:19 Pulse Ox 97 03/22/19 12:19 Intake & Output 03/21/19 03/22/19 03/22/19 18:59 06:59 18:59 Intake Total 350 800 Output Total 0 950 Balance 350 -150 Weight 109 kg Intake: Intake, IV Titration 100 Amount Sodium Ferric Gluconat- 100 Sucrose 125 mg In Sodium Chloride 0.9% 100 ml @ 100 mls/hr IVPB DAILY [facility] Rx#:[id number] Oral 250 800 Output: Urine 0 950 Other: Voiding Method Toilet Toilet Toilet Bedside Commode Bedside Commode Bedside Commode # Voids 0 1 # Bowel Movements 1 - Exam General: [non toxic], [tearful], [appears at stated age] Derm: [warm], [dry] Head: [atraumatic], [normocephalic], [symmetric] Eyes: [EOMI], [no lid lag], [anicteric sclera] Mouth: [no lip lesion], [mucus membranes moist] Cardiovascular: [S1S2 reg], [no murmur] Lungs: [CTA bilateral], [no rhonchi, no rales] , [no accessory muscle use] Abdominal: [soft], [ nontender to palpation], [no guarding], [no appreciable or ganomegaly] Ext: [no gross muscle atrophy], [no edema], [no contractures] Neuro: [Strength 2/5 in the right lower extremity. Able to wiggle toes. Weak plantarflexion when compared to the left lower extremity. Unable to hold right lower extremity against gravity. Sensation intact to touch in the right lower extremity. No hematoma in the right groin.] Psych: [Alert], [oriented], [appropriate affect] - Labs CBC & Chem 7: 03/22/19 08:35 03/22/19 08:35 Labs: Abnormal Lab Results - Last 24 Hours (Table) 03/22/19 03/22/19 Range/Units 08:35 08:35 WBC 14.0 H (3.8-10.6) k/uL MCV 73.0 L (80.0-100.0) fL MCH 21.3 L (25.0-35.0) pg MCHC 29.1 L (31.0-37.0) g/dL RDW 16.5 H (11.5-15.5) % Neutrophils # 9.9 H (1.3-7.7) k/uL Basophils # 0.3 H (0-0.2) k/uL Glucose 134 H (74-99) mg/dL Assessment and Plan Assessment: Right lower extremity weakness Acute exacerbation of systolic CHF EF 20%, new diagnosis Elevated troponin with hypokinetic wall motion Microcytosis Hypertension Resolved: Hypertensive urgency, hypokalemia Patient evaluated for stroke. Brain CT No acute process. CTA head and neck shows no significant abnormality. Ultrasound of the right lower extremity shows no pseudoaneurysm of the right femoral artery, no evidence of hematoma, some thickening of the anterior wall of the femoral vein. CT sacrum negative. CT lumbar spine negative. CT abdomen and pelvis negative. Lyme screen negative. Neurology consulted, recommends EMG and PT/OT. Discussed with Jaja, EMG not performed at [facility]. Family requested transfer to [facility], will address in the morning. PMR refusing patient for inpatient rehab. We'll follow PT and OT recommendations. EF less than 20%, grade 3 diastolic dysfunction. As per cardiology note, cardiac cath non-ischemic. Plans: Lasix by mouth. Continue Coreg. Continue lisinopril. Continue Aldactone. Telemetry monitoring. Follow cardiology recommendations. Troponin 0.081, 0.1, 0.075. Unknown significance. As per cardiology note, cardiac cath nonischemic. Plans: Nothing further to do. Hemoglobin 11.4, MCV 73.5. Iron studies show iron deficiency. Plans: IV iron for 3 days. Transfuse if hemoglobin less than 7. BP 141/85. Plans: Continue lisinopril and Coreg. Monitor vitals, adjust medications as necessary. [Patient admitted for CHF exacerbation, improved. Had right lower extremity weakness after Cardiac catheterization, CVA ruled out, workup so far negative, Neurology recommends outpatient EMG. Case was discussed with Dr. Esteves and Dr. Singh. Dr. Singh recommends nerve conduction studies. This was discussed with Dr. Veliz (Neurology) who indicated that nerve conduction study is not done at this hospital. I will attempt to transfer to patient to [facility] for further neurological evaluation regarding her right lower extremity weakness.]
[2019-03-22] MEDS ORDERED: ALPRAZolam 0.25 MG TAB PO STA (15:41)
--- NOTE | 2019-03-22 16:52 | MR ---
EXAMINATION TYPE: MR brain w con DATE OF EXAM: 03/22/2019 COMPARISON: 03/20/2019 HISTORY: Rt leg numbness/weakness, possible MS CONTRAST: Standard multiplanar, multisequence MRI departmental protocol utilizing 10 mL intravenous Gadavist ga dolinium contrast. Ventricles have normal size. There is no mass effect nor midline shift. There is no sign of intracran ial hemorrhage. There is no pathologic enhancement. On the FLAIR images there are numerous white matter high signal foci in the cerebral hemispheres at t he benton-white matter junction and adjacent to the lateral ventricles. Total number is approximately 2 0 and lesions measure up to 1 cm. There is mucosal thickening right maxillary sinus. The brainstem is intact. IMPRESSION: Numerous nonenhancing white matter lesions consistent with demyelinating disease and less likely chronic disease manager kenney small vessel ischemia. No significant change compared to recent exam of 03/20/2019.
[2019-03-22 17:10] LABS: Glucose,Whole Blood 109 mg/dL (75-99)
[2019-03-22] MEDS: POTASSIUM CHLORIDE ER 10 MEQ TAB.ER.PRT PO SCH (17:37)
[2019-03-22] MEDS: HYDROcodone/APAP 7.5-325MG 1 EACH TAB PO PRN (18:18)
[2019-03-22 20:10] LABS: Glucose,Whole Blood 148 mg/dL (75-99)
--- NOTE | 2019-03-22 23:04 | P.PN ---
Progress Note - Text Progress Note Date: 03/22/19 Brief Note: Patient was not examined today. Patient's MRI brain w/o contrast on 03/20/2019 without any acute stroke. Multiple T2 hyperintense lesions, which is unusual for patient at age 43, but patient with history of HTN. However, needed to make sure patient was not having active MS with MRI brain w contrast as patient had an acute RLE weakness although patient also could have had RLE weakness from cardiac cath complication. MRI brain w contrast with no enhancing lesions with contrast. Imaging alone cannot diagnose a patient with multiple sclerosis. Patient had denied previous symptoms of weakness, numbness, tingling or vision changes. As recommended in previous note and discussed with patient on 03/21/2019 (I had stopped by shortly to discuss MRI result, continue physical therapy and recommend follow up with outpatient Neurologist for further studies), patient should take MRI brain imaging to outpatient Neurologist along with EMG/NCS for help with diagnosis of femoral neuropathy.
[2019-03-23] MEDS: HYDROcodone/APAP 7.5-325MG 1 EACH TAB PO PRN ×2 (02:35→09:06)
[2019-03-23 03:12] VITALS: RESP 18
[2019-03-23 06:10] LABS: Glucose,Whole Blood 113 mg/dL (75-99)
[2019-03-23] MEDS: CARVEDILOL 6.25 MG TAB PO SCH (06:50)
[2019-03-23] MEDS: FUROSEMIDE 40 MG TAB PO SCH (09:04)
[2019-03-23] MEDS: AMOXIC-POT CLAV 875-125MG 1 EACH TAB PO SCH (09:05)
[2019-03-23] MEDS: LISINOPRIL 20 MG TAB PO SCH (09:05)
[2019-03-23] MEDS: SPIRONOLACTONE 25 MG TAB PO SCH (09:05)
[2019-03-23] MEDS: ALPRAZolam 0.25 MG TAB PO PRN (09:06)
[2019-03-23] MEDS: ATORVASTATIN 20 MG TAB PO SCH (09:06)
[2019-03-23] MEDS: HEPARIN SODIUM,PORCINE 5,000 UNIT/ML 1 ML VIAL SQ SCH (09:08)
[2019-03-23] MEDS: SODIUM FERRIC GLUCONAT-SUCROSE 125 MG in SODIUM CHLORIDE 0.9% 100 ML IVPB SCH (10:03)
[2019-03-23] MEDS: FUROSEMIDE 10 MG/ML 4 ML VIAL IV SCH (10:14)
--- NOTE | 2019-03-23 10:32 | P.PN ---
Subjective Progress Note Date: 03/23/19 Principal diagnosis: Right lower extremity weakness Patient was seen and examined. Patient continues to report right lower extremity weakness that has not improved since yesterday. Patient also complaining of cramping pain in the posterior right thigh that extends into the knee. She denies any pain below the knee. She denies any sensory deficits. No bladder or bowel incontinence. She denies any chest pain, shortness of breath or palpitations. No nausea or vomiting. No fever or chills. Yesterday patient and family decided against [facility] over preference for [facility]. Objective - Vital Signs Vital signs: Vital Signs Temp 99.1 F 03/22/19 21:20 Pulse 99 03/23/19 03:12 Resp 18 03/23/19 03:12 BP 111/62 03/23/19 03:12 Pulse Ox 97 03/23/19 03:12 Intake & Output 03/22/19 03/23/19 03/23/19 18:59 06:59 18:59 Intake Total 100 240 Output Total 500 240 Balance -400 -240 240 Weight 109 kg 109.8 kg Intake: Intake, IV Titration 100 Amount Sodium Ferric Gluconat- 100 Sucrose 125 mg In Sodium Chloride 0.9% 100 ml @ 100 mls/hr IVPB DAILY [facility] Rx#:[id number] Oral 240 Output: Urine 500 240 Other: Voiding Method Toilet Bedside Commode # Voids 1 - Exam General: [non toxic], [tearful], [appears at stated age] Derm: [warm], [dry] Head: [atraumatic], [normocephalic], [symmetric] Eyes: [EOMI], [no lid lag], [anicteric sclera] Mouth: [no lip lesion], [mucus membranes moist] Cardiovascular: [S1S2 reg], [no murmur] Lungs: [CTA bilateral], [no rhonchi, no rales] , [no accessory muscle use] Abdominal: [soft], [ nontender to palpation], [no guarding], [no appreciable organomegaly] Ext: [no gross muscle atrophy], [no edema], [no contractures] Neuro: [Strength 2/5 in the right lower extremity. Able to wiggle toes. Weak plantarflexion when compared to the left lower extremity. Unable to hold right lower extremity against gravity. Sensation intact to touch in the right lower extremity. No hematoma in the right groin.] Psych: [Alert], [oriented], [appropriate affect] - Labs CBC & Chem 7: 03/22/19 08:35 03/22/19 08:35 Labs: Abnormal Lab Results - Last 24 Hours (Table) 03/22/19 03/22/19 03/23/19 Range/Units 17:04 20:09 06:07 POC Glucose (mg/dL) 109 H 148 H 113 H (75-99) mg/dL Assessment and Plan Assessment: Right lower extremity weakness Acute exacerbation of systolic CHF EF 20%, new diagnosis Elevated troponin with hypokinetic wall motion Microcytosis Hypertension Resolved: Hypertensive urgency, hypokalemia Patient evaluated for stroke. Brain CT No acute process. CTA head and neck shows no significant abnormality. Ultrasound of the right lower extremity shows no pseudoaneurysm of the right femoral artery, no evidence of hematoma, some thickening of the anterior wall of the femoral vein. CT sacrum negative. CT lumbar spine negative. CT abdomen and pelvis negative. Lyme screen negative. Neurology consulted, recommends EMG and PT/OT. Discussed with Jaja, EMG not performed at [facility]. MRI brain with contrast shows numerous nonenhancing white matter lesions consistent with demyelinating disease and less likely chronic small vessel ischemia. Plans: Family requested transfer to [facility], called and waiting call back. We'll follow PT and OT recommendations. Follow ESR and CRP to evaluate for possible vasulitis. EF less than 20%, grade 3 diastolic dysfunction. As per cardiology note, cardiac cath non-ischemic. Plans: Lasix by mouth. Continue Coreg. Continue lisinopril. Continue Aldactone. Telemetry monitoring. Follow cardiology recommendations. Troponin 0.081, 0.1, 0.075. Unknown significance. As per cardiology note, cardiac cath nonischemic. Plans: Nothing further to do. Hemoglobin 11.4, MCV 73.5. Iron studies show iron deficiency. Plans: IV iron for 3 days. Transfuse if hemoglobin less than 7. Repeat CBC today. BP 111/62. Plans: Continue lisinopril and Coreg. Monitor vitals, adjust medications as necessary. [Patient admitted for CHF exacerbation, improved. Had right lower extremity weakness after Cardiac catheterization, CVA ruled out, workup so far negative. MRI showing concerns for multiple sclerosis. Given her father has multiple sclerosis there is a real possibility that she might be having an MS flare, less likely spinal cord infarct. We have called [facility] and awaiting callback regarding possible transfer for neurology evaluation.]
[2019-03-23 11:07] LABS: Anisocytosis Slight; Basophils # (A) 0.1 k/uL (0-0.2); Basophils % (A) 1 %; Eosinophils # (A) 0.4 k/uL (0-0.7); Eosinophils % (A) 4 %; HCT 38.2 % (34.0-46.0); HGB 11.1 gm/dL (11.4-16.0); Hypochromasia Marked; Lymphocytes # (A) 1.6 k/uL (1.0-4.8); Lymphocytes % (A) 14 %; MCH 21.4 pg (25.0-35.0); MCV 73.7 fL (80.0-100.0); Mean Platelet Volume 7.9; Microcytosis Moderate; Monocytes # (A) 0.7 k/uL (0-1.0); Monocytes % (A) 6 %; Neutrophils # (A) 8.2 k/uL (1.3-7.7); Neutrophils % (A) 74 %; Platelet Count 278 k/uL (150-450); RBC 5.19 m/uL (3.80-5.40); RDW 16.5 % (11.5-15.5); WBC 11.2 k/uL (3.8-10.6)
[2019-03-23 11:54] VITALS: BP 118/57; PULSE 104; TEMP 99.3
[2019-03-23 11:57] LABS: Glucose,Whole Blood 100 mg/dL (75-99)
[2019-03-23 13:38] LABS: Erythrocyte Sedimentation Rate 34 mm/hr (0-20)
[2019-03-23] MEDS ORDERED: SALT AND SODA MOUTHWASH 1,000 ML PO SCH (16:00)
== END 2019-03-23 14:05 | disposition short-term general hospital (02) | DRG 286 ==
LOC: EC 18:38 → 3SCARD 21:22 → 2SICU 03-19 11:45 → 3SCARD 03-22 15:18
PROVIDERS: ADMIT Family Medicine; ATTEND Family Medicine
PROC: 3E03317 Introduction of Other Thrombolytic into Peripheral Vein, Percutaneous Approach (ICD-10-PCS; 2019-03-19)
PROC: B2111ZZ Fluoroscopy of Multiple Coronary Arteries using Low Osmolar Contrast (ICD-10-PCS; principal; 2019-03-19 11:15)
PROC: 4A023N7 Measurement of Cardiac Sampling and Pressure, Left Heart, Percutaneous Approach (ICD-10-PCS; principal; 2019-03-19 11:15)
DX: I11.0 Hypertensive heart disease with heart failure (principal); G92 Toxic encephalopathy; E66.2 Morbid (severe) obesity with alveolar hypoventilation; I16.1 Hypertensive emergency; G37.9 Demyelinating disease of central nervous system, unspecified; E83.42 Hypomagnesemia; E87.6 Hypokalemia; F32.9 Major depressive disorder, single episode, unspecified; T41.3X5A Adverse effect of local anesthetics, initial encounter; R29.705 NIHSS score 5; R20.2 Paresthesia of skin; R53.1 Weakness; D50.9 Iron deficiency anemia, unspecified; I27.20 Pulmonary hypertension, unspecified; K21.9 Gastro-esophageal reflux disease without esophagitis; I42.9 Cardiomyopathy, unspecified; G58.9 Mononeuropathy, unspecified; I34.0 Nonrheumatic mitral (valve) insufficiency; I50.23 Acute on chronic systolic (congestive) heart failure; Z68.36 Body mass index [BMI] 36.0-36.9, adult; Z82.0 Family history of epilepsy and other diseases of the nervous system; Z82.49 Family history of ischemic heart disease and other diseases of the circulatory system; Z79.899 Other long term (current) drug therapy; Z91.14 Patient's other noncompliance with medication regimen; Z91.19 Patient's noncompliance with other medical treatment and regimen; I25.2 Old myocardial infarction
CPT/HCPCS: 36415; 70450; 70496; 70498; 70551; 70552; 71045; 71046; 71275; 72131; 72192; 74176; 80048; 80053; 80061; 80306; 81003; 82728; 82805; 83036; 83540; 83550; 83605; 83735; 83880; 84100; 84132; 84443; 84484; 85025; 85027; 85379; 85610; 85652; 85730; 86140; 86618; 86850; 86900; 86901; 93005; 93306; 93458; 93975; 94660; 94760; 96361; 96365; 96366; 96367; 96368; 96374; 96375; 96376; 99291